=== PATIENT | female | born 1985 | race Hispanic/Latino ===

== ENCOUNTER 2018-03-17 16:08 | Emergency (ER) | payer BC, OTHER ==
[2018-03-17 16:26] VITALS: BP 142/82; PULSE 76; RESP 18; TEMP 98.2; O2SAT 98
--- NOTE | 2018-03-17 16:45 | ED PDOC ---
Upper Extremity Pain/Injury Time Seen by Provider: 03/17/18 16:23 Chief Complaint (Nursing): Finger,Hand,&Wrist Chief Complaint (Provider): Right hand pain History Per: Patient History/Exam Limitations: no limitations Onset/Duration Of Symptoms: Days (x1) Current Symptoms Are (Timing): Still Present Quality: "Pain" Additional Complaint(s): Kiki Sims is a 32 year old female, with no significant past medical history, who presents to the emergency department complaining of right hand pain s/p fall onset last night. Patient reports she fell with her arms extended. She did not take any pain medication. She denies any numbness, weakness or other injuries. No further medical complaints. PMD: None provided. Past Medical History Reviewed: Historical Data, Nursing Documentation, Vital Signs Vital Signs: Last Vital Signs Temp 98.2 F 03/17/18 16:23 Pulse 76 03/17/18 16:23 Resp 18 03/17/18 16:23 BP 142/82 03/17/18 16:23 Pulse Ox 98 03/17/18 16:23 - Medical History PMH: No Chronic Diseases - Surgical History Surgical History: No Surg Hx - Family History Family History: States: No Known Family Hx - Social History Current smoker - smoking cessation education provided: No Alcohol: None Drugs: Denies - Allergies Allergies/Adverse Reactions: Allergies Allergy/AdvReac Type Severity Reaction Status Date / Time codeine Allergy VOMITING Verified 03/17/18 16:23 latex Allergy RASH Verified 03/17/18 16:23 Review of Systems ROS Statement: Except As Marked, All Systems Reviewed And Found Negative Musculoskeletal: Positive for: Hand Pain (right) Neurological: Negative for: Weakness, Numbness Physical Exam - Reviewed Nursing Documentation Reviewed: Yes Vital Signs Reviewed: Yes - Physical Exam Appears: Positive for: Well, Non-toxic, No Acute Distress Head Exam: Positive for: ATRAUMATIC, NORMAL INSPECTION, NORMOCEPHALIC Skin: Positive for: Normal Color, Warm, Dry Eye Exam: Positive for: Normal appearance Neck: Positive for: Painless ROM Respiratory: Negative for: Respiratory Distress Extremity: Positive for: Normal ROM (Right hand ), Tenderness (snuffbox tenderness on right hand.), Swelling (posterior medial hand). Negative for: Deformity Neurologic/Psych: Positive for: Alert, Oriented. Negative for: Motor/Sensory Deficits - ECG O2 Sat by Pulse Oximetry: 98 (RA) Pulse Ox Interpretation: Normal Medical Decision Making Medical Decision Making: Initial Impression: Hand injury Initial Plan: --Motrin tab 600 mg PO --Hand right 3 views [RAD] --Reevaluation ~ Scribe Attestation: Documented by Noel Pizano, acting as a scribe for Djaa Valadez PA-C. Provider Scribe Attestation: All medical record entries made by the Scribe were at my direction and personally dictated by me. I have reviewed the chart and agree that the record accurately reflects my personal performance of the history, physical exam, medical decision making, and the department course for this patient. I have also personally directed, reviewed, and agree with the discharge instructions and disposition. Disposition - Clinical Impression Clinical Impression: Hand injury - Disposition Referrals: Bianca Doan MD [Staff Provider] - Disposition: Routine/Home Disposition Time: 18:21 Condition: GOOD Instructions: Common Wrist Injuries Forms: [employer] ([place] Korean)
--- NOTE | 2018-03-18 07:05 | RAD ---
PROCEDURE: Right Hand Radiographs. HISTORY: right hand pain, FOOSH COMPARISON: None. FINDINGS: BONES: No acute fracture or destructive bony lesion identified. JOINTS: Normal. No osteoarthritic changes. SOFT TISSUES: Normal. OTHER FINDINGS: None. IMPRESSION: Unremarkable right hand radiographs.
== END 2018-03-17 18:21 | disposition home or self-care (01) ==
LOC: H.ER 16:08
DX: S69.91XA Unspecified injury of right wrist, hand and finger(s), initial encounter (principal); W19.XXXA Unspecified fall, initial encounter; Y92.89 Other specified places as the place of occurrence of the external cause

== ENCOUNTER 2018-05-16 10:13 | Emergency (ER) | payer BC, OTHER ==
[2018-05-16 10:19] VITALS: TEMP 97.7
[2018-05-16 11:13] LABS: BASO # 0.1 K/uL (0.0-0.2); BASO % 0.9 % (0.0-2.0); EOS # 0.1 K/uL (0.0-0.7); EOS % 0.8 % (0.0-4.0); HEMOGLOBIN 14.4 g/dL (12.0-16.0); LYMPH # 2.1 K/uL (1.0-4.3); MEAN CELL VOLUME 89.7 fl (81.0-99.0); MEAN CORPUSCULAR HEMOGLOBIN 30.3 pg (27.0-31.0); MEAN CORPUSCULAR HGB CONC 33.8 g/dL (33.0-37.0); MEAN PLATELET VOLUME 9.1 fl (7.2-11.7); MONO # 0.7 K/uL (0.0-0.8); MONO % 6.8 % (0.0-10.0); NEUT % 70.5 % (50.0-75.0); NRBC % 0.1 % (0.0-0.0); RBC 4.77 Mil/uL (3.80-5.20); RED CELL DISTRIBUTION WIDTH 13.5 % (11.5-14.5); WHITE BLOOD COUNT 9.9 K/uL (4.8-10.8)
[2018-05-16 11:24] LABS: SQUAMOUS EPITHIAL 3 /hpf (0-5); URINE BILIRUBIN NEGATIVE (NEGATIVE); URINE BLOOD NEGATIVE (NEGATIVE); URINE CLARITY CLOUDY (Clear); URINE COLOR YELLOW (YELLOW); URINE GLUCOSE (UA) NEG (Normal); URINE LEUKOCYTE ESTERASE TRACE Leu/uL (Negative); URINE PROTEIN NEGATIVE (NEGATIVE); URINE UROBILINOGEN 0.2-1.0 mg/dL (0.2-1.0)
[2018-05-16 11:28] LABS: ALB/GLOB RATIO 1.1 (1.0-2.1); ALBUMIN 3.6 g/dL (3.5-5.0); ALT/SGPT 34 U/L (9-52); AST/SGOT 20 U/L (14-36); BLOOD UREA NITROGEN 9 mg/dl (7-17); CALCIUM 8.6 mg/dL (8.4-10.2); GFR AFRICAN-AMERICAN > 60; GFR NON-AFRICAN AMERICAN > 60
--- NOTE | 2018-05-16 11:31 | ED PDOC ---
HPI: Female Pain Time Seen by Provider: 05/16/18 10:30 Chief Complaint (Nursing): Female Genitourinary Chief Complaint (Provider): Vaginal spotting History Per: Patient History/Exam Limitations: no limitations Onset/Duration Of Symptoms: Days (x1) Current Symptoms Are (Timing): Still Present Additional Complaint(s): 32 year old female presents to the emergency department complaining of vaginal spotting onset one day. Patient has no abdominal pain, but was worried and came in for evaluation. LNMP: 03/25/18 PMD: Dr. Garcia Past Medical History Reviewed: Historical Data, Nursing Documentation, Vital Signs Vital Signs: Last Vital Signs Temp 97.7 F 05/16/18 10:18 Pulse 71 05/16/18 10:18 Resp 21 05/16/18 10:18 BP 136/77 05/16/18 10:18 Pulse Ox 98 05/16/18 10:18 - Medical History PMH: No Chronic Diseases - Surgical History Other surgeries: dilation and curettage - Family History Family History: States: Unknown Family Hx - Home Medications Home Medications: Ambulatory Orders Medication Instructions Recorded Vit Calc,Iron,Folic 1 each PO DAILY #30 tablet 05/16/18 [ Vitamins] - Allergies Allergies/Adverse Reactions: Allergies Allergy/AdvReac Type Severity Reaction Status Date / Time codeine Allergy VOMITING Verified 03/17/18 16:23 latex Allergy RASH Verified 03/17/18 16:23 Review of Systems ROS Statement: Except As Marked, All Systems Reviewed And Found Negative Gastrointestinal: Negative for: Abdominal Pain Genitourinary Female: Positive for: Vaginal Bleeding (spotting) Physical Exam - Reviewed Nursing Documentation Reviewed: Yes Vital Signs Reviewed: Yes - Physical Exam Appears: Positive for: No Acute Distress (but morbidly obese) Head Exam: Positive for: ATRAUMATIC, NORMOCEPHALIC Skin: Positive for: Normal Color, Warm, Dry Eye Exam: Positive for: Normal appearance Cardiovascular/Chest: Positive for: Regular Rate, Rhythm. Negative for: Murmur Respiratory: Positive for: Normal Breath Sounds. Negative for: Accessory Muscle Use, Respiratory Distress Gastrointestinal/Abdominal: Positive for: Normal Exam, Soft. Negative for: Tenderness Back: Positive for: Normal Inspection Neurologic/Psych: Positive for: Alert, Oriented (x3). Negative for: Motor/ Sensory Deficits - Laboratory Results Result Diagrams: 05/16/18 11:04 05/16/18 11:04 - ECG O2 Sat by Pulse Oximetry: 98 (RA) Pulse Ox Interpretation: Normal Medical Decision Making Medical Decision Making: Initial Impression: threatened Time: 10:47 Initial Plan: --ABO/RH Type --Type and screen --Beta-HCG --CMP --Urine --Urine dipstick --CBC with differential --Urinalysis --OB Preg 1st Tri & OB Transvag US Pt states she has appt with Ob in [place], [place] on Friday (05/18/18). Copy of labs and ultrasound given to patient. Scribe Attestation: Documented by Marla Newell, acting as a scribe for Magdalena Amador MD. Provider Scribe Attestation: All medical entries made by the Scribe were at my direction and personally dictated by me. I have reviewed the chart and agree that the record accurately reflects my personal performance of the history, physical exam, medical decision making, and the department course for this patient. I have also personally directed, reviewed, and agree with the discharge instructions and disposition. Disposition - Clinical Impression Clinical Impression: Threatened - Disposition Disposition Time: 13:56 Condition: STABLE Additional Instructions: FOLLOW-UP WITH OB IN 2 DAYS WITHOUT FAIL. Prescriptions: Vit Calc,Iron,Folic [ Vitamins] 1 each PO DAILY #30 tablet Instructions: Threatened Miscarriage Forms: [employer] (Indonesian)
--- NOTE | 2018-05-16 13:24 | US ---
PROCEDURE: OB Pelvic Ultrasound HISTORY: Vag spotting LMP: 03/25/2018 COMPARISON: None available. FINDINGS: UTERUS: Uterus measures 10.5 x 8.2 x 4.5 cm. Bicornuate type configuration. Small cystic structure within the left uterine horn measuring approximately 0.7 cm which may represent a gestational sac. No yolk sac or pole is identified. CERVIX: Measures 3.2 cm. Long and closed. No cervical abnormality seen. RIGHT OVARY: Measures 2.9 x 3.2 x 1.9 cm. No mass lesion. Normal flow. LEFT OVARY: Measures 2.4 x 2.8 x 1.5 cm. No solid mass. Normal flow. FREE FLUID: None. OTHER FINDINGS: None. IMPRESSION: Bicornuate type uterine configuration. Small cystic structure within the left uterine horn which may represent a small gestational sac. This measures approximately 0.7 cm, which is out of range. No yolk sac or pole is identified. Findings may represent early normal/ abnormal with ectopic not excluded. Close clinical follow-up with serial pelvic sonography and serum beta HCG levels is recommended.
[2018-05-16 14:03] VITALS: BP 125/80; PULSE 75; RESP 16
[2018-05-18 15:50] VITALS: O2SAT 98
== END 2018-05-16 14:03 | disposition home or self-care (01) ==
LOC: H.ER 10:13
DX: O20.0 Threatened abortion (principal)

== ENCOUNTER 2018-07-28 15:40 | Inpatient (IN) | payer BC ==
[2018-07-28] MEDS ORDERED: Sodium Chloride 0.9% 1,000 ML IV STA ×2 (16:14→16:19)
[2018-07-28] MEDS ORDERED: Clindamycin 600mg/50ml D5W 600 MG/50 ML VIAL IVPB STA (16:20)
[2018-07-28 16:46] LABS: BASO % 0.1 % (0.0-2.0); HEMOGLOBIN 13.5 g/dL (12.0-16.0); LYMPH # 1.2 K/uL (1.0-4.3); MEAN CELL VOLUME 89.2 fl (81.0-99.0); MEAN CORPUSCULAR HEMOGLOBIN 29.7 pg (27.0-31.0); MEAN CORPUSCULAR HGB CONC 33.3 g/dL (33.0-37.0); MEAN PLATELET VOLUME 9.8 fl (7.2-11.7); MONO # 1.3 K/uL (0.0-0.8); MONO % 5.4 % (0.0-10.0); NEUT # 20.9 K/uL (1.8-7.0); NEUT % 89.5 % (50.0-75.0); NRBC % 0.1 % (0.0-0.0); PLATELET COUNT 225 K/uL (130-400); RBC 4.56 Mil/uL (3.80-5.20); RED CELL DISTRIBUTION WIDTH 13.7 % (11.5-14.5); WHITE BLOOD COUNT 23.4 K/uL (4.8-10.8)
--- NOTE | 2018-07-28 16:50 | ED PDOC ---
HPI: Abdomen Time Seen by Provider: 07/28/18 16:07 Chief Complaint (Nursing): GI Problem Chief Complaint (Provider): GI Problem History Per: Patient History/Exam Limitations: no limitations Onset/Duration Of Symptoms: Days (3) Associated Symptoms: Fever, Nausea, Vomiting, Diarrhea Additional Complaint(s): 33 years old female who is 16 weeks presents to the ED for evaluation of worsening nausea, vomiting, diarrhea and swelling to left buttock onset 3 days. Patient reports all symptoms started at the same time. Pt has been following up with clerical support specialist in [place] for maternal monitoring. She states she has been febrile but has not measured her temperature. Patient denies history of abscess, cellulitis or MRSA. LNMP: 03/25/18 PMD: [facility] [employer]: Abel Past Medical History Reviewed: Historical Data, Nursing Documentation, Vital Signs Vital Signs: Last Vital Signs Temp 97.3 F L 08/01/18 08:00 Pulse 104 H 08/01/18 08:00 Resp 20 08/01/18 08:00 BP 96/58 L 08/01/18 08:00 Pulse Ox 96 08/01/18 08:00 - Medical History PMH: No Chronic Diseases - Surgical History Surgical History: No Surg Hx - Family History Family History: States: Unknown Family Hx - Social History Current smoker - smoking cessation education provided: No Alcohol: None Drugs: Denies - Home Medications Home Medications: Ambulatory Orders Medication Instructions Recorded Vit Calc,Iron,Folic 1 each PO DAILY #30 tablet 05/16/18 [ Vitamins] - Allergies Allergies/Adverse Reactions: Allergies Allergy/AdvReac Type Severity Reaction Status Date / Time codeine Allergy VOMITING Verified 03/17/18 16:23 latex Allergy RASH Verified 03/17/18 16:23 Review of Systems ROS Statement: Except As Marked, All Systems Reviewed And Found Negative Constitutional: Positive for: Fever (subjective) Gastrointestinal: Positive for: Nausea, Vomiting, Diarrhea Physical Exam - Reviewed Nursing Documentation Reviewed: Yes Vital Signs Reviewed: Yes - Physical Exam Appears: Positive for: Non-toxic, No Acute Distress Skin: Positive for: Normal Color, Warm, Dry Cardiovascular/Chest: Positive for: Regular Rate, Rhythm. Negative for: Murmur Respiratory: Positive for: Normal Breath Sounds. Negative for: Respiratory Distress Gastrointestinal/Abdominal: Positive for: Normal Exam, Soft, Other (Gravid). Negative for: Tenderness Back: Positive for: Other (Large 10cm x 5cm hard area of cellulitis to left medial buttock. No fluctuant or drainage.). Negative for: L CVA Tenderness, R CVA Tenderness Neurologic/Psych: Positive for: Alert, Oriented (x3) - Laboratory Results Result Diagrams: 08/01/18 05:05 08/01/18 05:05 - ECG O2 Sat by Pulse Oximetry: 100 (RA) Pulse Ox Interpretation: Normal Medical Decision Making Medical Decision Making: Time: 1613 --large area of cellulitis to left medial buttock --abscess to drain --patient is possibly septic --most likely admission for requiring antibiotics Initial Plan: --BBK Type and Screen --Venous Blood Gas --EKG --Beta-HCG --CMP --Lipase --CBC --PTT --PT --Cleocin 600 mg in 50 ml IVPB --NaCl 1,000 ml IV --Tylenol 650 mg PO --Zofran 4 mg IVP --Urinalysis Pt found to have WBC of 24 and tachycardic with source of infection. Pt given zofran, tylenol, IV fluids and started on clindamycin. Pt admitted to the medicine service under Dr. Xie and doctor Rojas aware of pt status. Spoke with Dr. Grace with gynecology who recommended obstetric ultrasound to confirm gestational age and stated he will speak with Dr. Xie to determine if consult is necessary. Pt aware that she is going to be admitted. 2014 Patient reports persistent pain, offered Morphine but she states that "doesn't work" for her and is requesting Dilaudid. Patient informed Dilaudid not given in this hospital and is agreeable to Morphine -- Morphine 6mg IV ordered. 2104 US OB FINDINGS: Limitations: Body habitus. Fetus: Single live intrauterine gestation. Heart rate: heart rate of 186 beats per minute. Presentation: Transverse. Placenta: Posterior. No abruption. Tip approximately 2.0 cm from cervical os. Amniotic fluid: Normal. Anatomy: No gross anomaly is appreciated. BIOMETRICS Gestational age: Estimated gestational age of 15 weeks 5 days by measurements. ELVIA: 01/14/2019 by ultrasound. EFW: 128 g. MATERNAL: Uterus: Unremarkable. No myometrial mass. Cervix: No cervical dilatation or effacement. Adnexa: Ovaries not visualized. No adnexal masses. Free fluid: No significant free fluid. IMPRESSION: 1. Single live intrauterine gestation Scribe Attestation: Documented by Orquidea Mckeon, acting as a scribe for Sheri Jones MD. Provider Scribe Attestation: All medical record entries made by the Scribe were at my direction and personally dictated by me. I have reviewed the chart and agree that the record accurately reflects my personal performance of the history, physical exam, medical decision making, and the department course for this patient. I have also personally directed, reviewed, and agree with the discharge instructions and disposition. Disposition - Clinical Impression Clinical Impression: Cellulitis and abscess of buttock - Patient ED Disposition Is Patient to be Admitted: Yes - Disposition Disposition Time: 17:30 Condition: FAIR
[2018-07-28 17:04] LABS: VENOUS BLOOD GAS BASE EXCESS -2.9 mmol/L (0.0-2.0); VENOUS BLOOD GAS PCO2 38 mmHg (40-60); VENOUS BLOOD GAS PO2 26 mm/Hg (30-55); VENOUS BLOOD PH 7.37 (7.32-7.43)
[2018-07-28 17:09] LABS: ALB/GLOB RATIO 1.1 (1.0-2.1); ALBUMIN 3.7 g/dL (3.5-5.0); ALT/SGPT 40 U/L (9-52); AST/SGOT 33 U/L (14-36); BLOOD UREA NITROGEN 7 mg/dl (7-17); GFR NON-AFRICAN AMERICAN > 60; LIPASE 20 U/L (23-300)
[2018-07-28 17:24] LABS: INR 1.1; PROTHROMBIN TIME 12.7 Seconds (9.8-13.1)
[2018-07-28 17:26] LABS: EOSINOPHIL 1 % (0-7); LYMPHOCYTE 4 % (20-50); MONOCYTE 5 % (0-10); NEUTROPHIL 90 % (42-75); PLATELET ESTIMATE NORMAL (NORMAL); TOTAL CELLS COUNTED 100
[2018-07-28 17:27] LABS: PARTIAL THROMBOPLASTIN TIME 28.9 Seconds (25.6-37.1)
[2018-07-28] MEDS ORDERED: Morphine 4 MG/ML VIAL ONE (20:02)
[2018-07-29] MEDS ORDERED: Clindamycin 600mg/50ml D5W 300 MG/25 ML VIAL IVPB SCH (01:00)
[2018-07-29] MEDS: Clindamycin 600mg/50ml D5W 600 MG/50 ML VIAL IVPB SCH ×2 (01:41→09:12)
[2018-07-29] MEDS: Dextrose 5%/Lactated Ringer's 1,000 ML IV SCH ×2 (05:18→20:50)
[2018-07-29 06:27] LABS: BASO # 0.3 K/uL (0.0-0.2); BASO % 1.1 % (0.0-2.0); HEMOGLOBIN 12.8 g/dL (12.0-16.0); LYMPH % 3.9 % (20.0-40.0); MEAN CELL VOLUME 90.1 fl (81.0-99.0); MEAN CORPUSCULAR HEMOGLOBIN 30.2 pg (27.0-31.0); MEAN CORPUSCULAR HGB CONC 33.6 g/dL (33.0-37.0); MEAN PLATELET VOLUME 9.9 fl (7.2-11.7); MONO # 1.8 K/uL (0.0-0.8); MONO % 6.8 % (0.0-10.0); NEUT % 88.2 % (50.0-75.0); RBC 4.25 Mil/uL (3.80-5.20); RED CELL DISTRIBUTION WIDTH 13.5 % (11.5-14.5); WHITE BLOOD COUNT 26.1 K/uL (4.8-10.8)
[2018-07-29 07:07] LABS: ALB/GLOB RATIO 1.1 (1.0-2.1); ALBUMIN 3.4 g/dL (3.5-5.0); ALT/SGPT 43 U/L (9-52); AST/SGOT 26 U/L (14-36); BLOOD UREA NITROGEN 5 mg/dl (7-17); CALCIUM 8.9 mg/dL (8.4-10.2); GFR NON-AFRICAN AMERICAN > 60
[2018-07-29 07:28] LABS: SQUAMOUS EPITHIAL 5 /hpf (0-5); URINE BACTERIA RARE (<OCC); URINE BILIRUBIN NEGATIVE (NEGATIVE); URINE BLOOD NEGATIVE (NEGATIVE); URINE CLARITY CLOUDY (Clear); URINE COLOR AMBER (YELLOW); URINE GLUCOSE (UA) >=500 mg/dL (Normal); URINE LEUKOCYTE ESTERASE NEG Leu/uL (Negative); URINE PROTEIN 30 mg/dL (NEGATIVE)
--- NOTE | 2018-07-29 10:15 | CARD ---
APPROVED REPORT Date of service: 07/28/2018 <Conclusion> Sinus tachycardia Abnormal QRS-T angle, consider primary T wave abnormality Abnormal ECG
--- NOTE | 2018-07-29 10:26 | US ---
Date of service: 07/28/2018 PROCEDURE: OB Pelvic Ultrasound HISTORY: pt admitted for sepsis. confirm dating, please LMP: 03/25/2018 COMPARISON: 05/16/2018 FINDINGS: UTERUS: Gestational sac: Single intrauterine gestation. Heart rate: 186 bpm. age (Ultrasound estimated): 15 weeks 5 days 1 week 1 day Jeannette-gestational hemorrhage: None. Date of delivery (Ultrasound estimated) : 01/14/2019 On available images of the uterus, no uterine masses appreciated. CERVIX: Measures 5.3 cm. Long and closed. No cervical abnormality seen. RIGHT OVARY: Not visualized LEFT OVARY: Not visualized. FREE FLUID: None. OTHER FINDINGS: Posterior placenta greater than 2 cm from the cervix. presentation transverse. IMPRESSION: Single intrauterine gestation with normal cardiac activity whose menstrual age by ultrasound parameters is 15 weeks 5 days. Estimated date of delivery is 01/14/2019 by ultrasound. Estimated weight is 28 g. Posterior placenta. No previa. Transverse presentation. Cervical length 5.3 cm. Internal cervical os closed. No cervical abnormality appreciated. Comment please note that the prior Ob ultrasound study from 05/16/2018 made reference to a possible bicornuate type uterine configuration. This is difficult to perceive on this exam . Correlation any prior anatomical studies in this regard recommended. Concordant results (preliminary interpretation) provided by [employer].
[2018-07-29] MEDS ORDERED: Cefepime 1 GM in Sodium Chloride 0.9% 100 ML IVPB SCH (12:45)
--- NOTE | 2018-07-29 16:51 | CP.PCM.HP ---
<GriderRojelioo - Last Filed: 07/29/18 16:49> History of Present Illness - History of Present Illness History of Present Illness: 33 y/o F with No PMHx, at 16 weeks of gestational age, was admitted due to Left gluteus cellulitis. Pt was evaluated and examined by bedside with Dr Xie. pt reports noticing L gluteal rash 5 days ago. Pt reported feeling feverish since 2 days ago. Pt denies Hx of diabetes or high blood pressure. Pt reports 1 previous that was medically terminated when she was 18 years old. LNMP: 03/25/18 PMD: Jose [employer] PHONE DEVELOPER: Abel Present on Admission - Present on Admission Any Indicators Present on Admission: No Review of Systems - Constitutional Constitutional: absent: Chills, Fatigue, Fever - EENT Eyes: absent: Blurred Vision, Change in Vision Nose/Mouth/Throat: absent: Neck Pain, Neck Mass - Respiratory Respiratory: absent: Cough, Dyspnea, Hemoptysis, Stridor, Pain on Inspiration - Gastrointestinal Gastrointestinal: absent: Abdominal Pain, Hematemesis, Hematochezia - Genitourinary Genitourinary: absent: Change in Urinary Stream, Dysuria - Reproductive: Female Reproductive:Female: absent: Dyspareunia, Vaginal Odor, Vaginal Pruritis Past Patient History - Past Medical History & Family History Past Medical History?: Yes - Past Social History Smoking Status: Former Smoker - ENDOCRINE/METABOLIC Hx Endocrine Disorders: Yes (gallbladder disease) - MUSCULOSKELETAL/RHEUMATOLOGICAL Hx Falls: No - PSYCHIATRIC Hx Substance Use: No - SURGICAL HISTORY Hx Cholecystectomy: Yes (Jan 2016) Other/Comment: DNC - ANESTHESIA Hx Anesthesia: Yes Hx Anesthesia Reactions: No Meds Allergies/Adverse Reactions: Allergies Allergy/AdvReac Type Severity Reaction Status Date / Time codeine Allergy VOMITING Verified 03/17/18 16:23 latex Allergy RASH Verified 03/17/18 16:23 Physical Exam - Constitutional Appears: Well, No Acute Distress - Head Exam Head Exam: NORMAL INSPECTION - Eye Exam Eye Exam: EOMI, Normal appearance - ENT Exam ENT Exam: Mucous Membranes Dry - Neck Exam Neck exam: Positive for: Full Rom. Negative for: Lymphadenopathy, Meningismus - Respiratory Exam Respiratory Exam: Clear to Auscultation Bilateral, NORMAL BREATHING PATTERN - Cardiovascular Exam Cardiovascular Exam: REGULAR RHYTHM, +S1, +S2 - GI/Abdominal Exam GI & Abdominal Exam: Normal Bowel Sounds, Soft. absent: Distended, Firm, Guarding, Tenderness - Extremities Exam Extremities exam: Positive for: full ROM. Negative for: calf tenderness - Neurological Exam Neurological exam: Alert, Oriented x3 - Skin Additional comments: Left gluteal area: Presence of tenderness and an area of >10cm diameter area of significant erythema and swelling. Results - Vital Signs Recent Vital Signs: Last Vital Signs Temp 98.7 F 07/29/18 16:15 Pulse 108 H 07/29/18 16:15 Resp 20 07/29/18 16:15 BP 118/68 07/29/18 16:15 Pulse Ox 100 07/29/18 16:15 - Labs Result Diagrams: 07/29/18 05:30 07/29/18 05:30 Labs: Laboratory Results - last 24 hr 07/28/18 07/28/18 07/28/18 16:15 16:15 16:15 WBC 23.4 H D RBC 4.56 Hgb 13.5 Hct 40.6 MCV 89.2 MCH 29.7 MCHC 33.3 RDW 13.7 Plt Count 225 MPV 9.8 Neut % (Auto) 89.5 H Lymph % (Auto) 5.0 L [place] % (Auto) 5.4 Eos % (Auto) 0.0 Baso % (Auto) 0.1 Neut # (Auto) 20.9 H Lymph # (Auto) 1.2 [place] # (Auto) 1.3 H Eos # (Auto) 0.0 Baso # (Auto) 0.0 Neutrophils % (Manual) 90 H Lymphocytes % (Manual) 4 L Monocytes % (Manual) 5 Eosinophils % (Manual) 1 Platelet Estimate Normal ESR PT 12.7 INR 1.1 APTT 28.9 pO2 VBG pH VBG pCO2 VBG HCO3 VBG Total CO2 VBG O2 Sat (Calc) VBG Base Excess VBG Potassium Glucose Lactate FiO2 Sodium 133 Potassium 4.3 Chloride 102 Carbon Dioxide 20 L Anion Gap 15 BUN 7 Creatinine 0.7 Est GFR ( Amer) > 60 Est GFR (Non-Af Amer) > 60 Random Glucose 197 H Hemoglobin A1c Calcium 9.0 Total Bilirubin 1.1 AST 33 ALT 40 Alkaline Phosphatase 80 Total Protein 7.0 Albumin 3.7 Globulin 3.3 Albumin/Globulin Ratio 1.1 Lipase 20 L TSH 3rd Generation Beta HCG, Quant 60074.00 Venous Blood Potassium Urine Color Urine Clarity Urine pH Ur Specific [place] Urine Protein Urine Glucose (UA) Urine Ketones Urine Blood Urine Nitrate Urine Bilirubin Urine Urobilinogen Ur Leukocyte Esterase Urine RBC (Auto) Urine Microscopic WBC Ur Squamous Epith Cells Urine Bacteria Blood Type Antibody Screen BBK History Checked 07/28/18 07/28/18 07/29/18 16:15 16:19 05:30 WBC 26.1 H RBC 4.25 Hgb 12.8 Hct 38.3 MCV 90.1 MCH 30.2 MCHC 33.6 RDW 13.5 Plt Count 183 MPV 9.9 Neut % (Auto) 88.2 H Lymph % (Auto) 3.9 L [place] % (Auto) 6.8 Eos % (Auto) 0.0 Baso % (Auto) 1.1 Neut # (Auto) 23.0 H Lymph # (Auto) 1.0 [place] # (Auto) 1.8 H Eos # (Auto) 0.0 Baso # (Auto) 0.3 H Neutrophils % (Manual) Lymphocytes % (Manual) Monocytes % (Manual) Eosinophils % (Manual) Platelet Estimate ESR PT INR APTT pO2 26 L VBG pH 7.37 VBG pCO2 38 L VBG HCO3 21.3 VBG Total CO2 23.2 VBG O2 Sat (Calc) 55.1 VBG Base Excess -2.9 L VBG Potassium 3.7 Glucose 211 H Lactate 1.5 FiO2 21.0 Sodium 129.0 L Potassium Chloride 98.0 Carbon Dioxide Anion Gap BUN Creatinine Est GFR ( Amer) Est GFR (Non-Af Amer) Random Glucose Hemoglobin A1c Calcium Total Bilirubin AST ALT Alkaline Phosphatase Total Protein Albumin Globulin Albumin/Globulin Ratio Lipase TSH 3rd Generation Beta HCG, Quant Venous Blood Potassium 3.7 Urine Color Urine Clarity Urine pH Ur Specific [place] Urine Protein Urine Glucose (UA) Urine Ketones Urine Blood Urine Nitrate Urine Bilirubin Urine Urobilinogen Ur Leukocyte Esterase Urine RBC (Auto) Urine Microscopic WBC Ur Squamous Epith Cells Urine Bacteria Blood Type A POSITIVE Antibody Screen Negative BBK History Checked Patient has bt 07/29/18 07/29/18 07/29/18 05:30 05:30 05:30 WBC RBC Hgb Hct MCV MCH MCHC RDW Plt Count MPV Neut % (Auto) Lymph % (Auto) [place] % (Auto) Eos % (Auto) Baso % (Auto) Neut # (Auto) Lymph # (Auto) [place] # (Auto) Eos # (Auto) Baso # (Auto) Neutrophils % (Manual) Lymphocytes % (Manual) Monocytes % (Manual) Eosinophils % (Manual) Platelet Estimate ESR 90 H PT INR APTT pO2 VBG pH VBG pCO2 VBG HCO3 VBG Total CO2 VBG O2 Sat (Calc) VBG Base Excess VBG Potassium Glucose Lactate FiO2 Sodium 135 Potassium 4.1 Chloride 102 Carbon Dioxide 22 Anion Gap 15 BUN 5 L Creatinine 0.6 L Est GFR ( Amer) > 60 Est GFR (Non-Af Amer) > 60 Random Glucose 206 H Hemoglobin A1c 7.3 H Calcium 8.9 Total Bilirubin 1.1 AST 26 ALT 43 Alkaline Phosphatase 72 Total Protein 6.4 Albumin 3.4 L Globulin 3.0 Albumin/Globulin Ratio 1.1 Lipase TSH 3rd Generation 0.67 Beta HCG, Quant Venous Blood Potassium Urine Color Urine Clarity Urine pH Ur Specific [place] Urine Protein Urine Glucose (UA) Urine Ketones Urine Blood Urine Nitrate Urine Bilirubin Urine Urobilinogen Ur Leukocyte Esterase Urine RBC (Auto) Urine Microscopic WBC Ur Squamous Epith Cells Urine Bacteria Blood Type Antibody Screen BBK History Checked 07/29/18 06:45 WBC RBC Hgb Hct MCV MCH MCHC RDW Plt Count MPV Neut % (Auto) Lymph % (Auto) [place] % (Auto) Eos % (Auto) Baso % (Auto) Neut # (Auto) Lymph # (Auto) [place] # (Auto) Eos # (Auto) Baso # (Auto) Neutrophils % (Manual) Lymphocytes % (Manual) Monocytes % (Manual) Eosinophils % (Manual) Platelet Estimate ESR PT INR APTT pO2 VBG pH VBG pCO2 VBG HCO3 VBG Total CO2 VBG O2 Sat (Calc) VBG Base Excess VBG Potassium Glucose Lactate FiO2 Sodium Potassium Chloride Carbon Dioxide Anion Gap BUN Creatinine Est GFR ( Amer) Est GFR (Non-Af Amer) Random Glucose Hemoglobin A1c Calcium Total Bilirubin AST ALT Alkaline Phosphatase Total Protein Albumin Globulin Albumin/Globulin Ratio Lipase TSH 3rd Generation Beta HCG, Quant Venous Blood Potassium Urine Color [place] Urine Clarity Cloudy Urine pH 5.0 Ur Specific [place] 1.026 Urine Protein 30 Urine Glucose (UA) >=500 Urine Ketones 80 Urine Blood Negative Urine Nitrate Negative Urine Bilirubin Negative Urine Urobilinogen 4.0 H Ur Leukocyte Esterase Neg Urine RBC (Auto) 3 Urine Microscopic WBC 6 H Ur Squamous Epith Cells 5 Urine Bacteria Rare Blood Type Antibody Screen BBK History Checked Assessment & Plan - Assessment and Plan (Free Text) Assessment: 33 y/o female at 16 weeks GA, is admitted for L gluteus cellulitis. --Acetaminophen scheduled for fever. --Clindamycin as empiric treatment --OBGYN consult for well-being evaluation. --Gen Surgery consult for possibility of abscess and need of I&D. --Management as ordered. - Date & Time Date: 07/29/18 Time: 14:00 <Sterling Xie - Last Filed: 08/03/18 18:19> Results - Vital Signs Recent Vital Signs: Last Vital Signs Temp 97.9 F 08/03/18 16:19 Pulse 88 08/03/18 16:19 Resp 20 08/03/18 16:19 BP 119/74 08/03/18 16:19 Pulse Ox 97 08/03/18 16:19 - Labs Result Diagrams: 08/03/18 07:30 08/03/18 07:30 Labs: Laboratory Results - last 24 hr 08/02/18 08/03/18 08/03/18 22:08 05:54 07:30 WBC 14.7 H RBC 3.60 L Hgb 10.7 L Hct 31.7 L MCV 88.0 MCH 29.8 MCHC 33.9 RDW 13.8 Plt Count 251 MPV 8.6 Neut % (Auto) 83.3 H Lymph % (Auto) 9.5 L [place] % (Auto) 6.6 Eos % (Auto) 0.3 Baso % (Auto) 0.3 Neut # (Auto) 12.2 H Lymph # (Auto) 1.4 [place] # (Auto) 1.0 H Eos # (Auto) 0.0 Baso # (Auto) 0.0 Neutrophils % (Manual) 83 H Band Neutrophils % 4 H Lymphocytes % (Manual) 7 L Monocytes % (Manual) 2 Metamyelocytes % 1 H Myelocytes % 2 H Promyelocytes % 1 H Toxic Granulation Present Platelet Estimate Normal Plt Clumps, EDTA Present Hypochromasia (manual) Slight Sodium Potassium Chloride Carbon Dioxide Anion Gap BUN Creatinine Est GFR ( Amer) Est GFR (Non-Af Amer) POC Glucose (mg/dL) 216 H 168 H Random Glucose Calcium 08/03/18 08/03/18 07:30 11:46 WBC RBC Hgb Hct MCV MCH MCHC RDW Plt Count MPV Neut % (Auto) Lymph % (Auto) [place] % (Auto) Eos % (Auto) Baso % (Auto) Neut # (Auto) Lymph # (Auto) [place] # (Auto) Eos # (Auto) Baso # (Auto) Neutrophils % (Manual) Band Neutrophils % Lymphocytes % (Manual) Monocytes % (Manual) Metamyelocytes % Myelocytes % Promyelocytes % Toxic Granulation Platelet Estimate Plt Clumps, EDTA Hypochromasia (manual) Sodium 135 Potassium 3.4 L Chloride 101 Carbon Dioxide 27 Anion Gap 10 BUN 18 H Creatinine 1.0 Est GFR ( Amer) > 60 Est GFR (Non-Af Amer) > 60 POC Glucose (mg/dL) 210 H Random Glucose 159 H Calcium 8.4 Assessment & Plan - Assessment and Plan (Free Text) Plan: I was present during evaluation and discussed with Dr Grider re plans of care and mgt. Sterling Xie M.D.
--- NOTE | 2018-07-29 19:46 | CP.PCM.PN ---
Subjective - Date & Time of Evaluation Date of Evaluation: 07/29/18 Time of Evaluation: 19:44 - Subjective Subjective: I D NOTE PATIENT EXAMINED ,CHART REVIEWSD FULL CONSULT DICTATED RX : CLINDAMYCIN/ROCEPHEN Objective - Vital Signs/Intake and Output Vital Signs (last 24 hours): Temp Pulse Resp BP Pulse Ox 98.7 F 108 H 20 118/68 100 07/29/18 16:15 07/29/18 16:15 07/29/18 16:15 07/29/18 16:15 07/29/18 16:15 - Medications Medications: Current Medications Acetaminophen (Tylenol 325mg Tab) 650 mg PO Q6 PRN PRN Reason: Fever >100.4 F Acetaminophen (Tylenol 325mg Tab) 650 mg PO Q6 PRN PRN Reason: Pain, Mild (1-3) Acetaminophen (Tylenol 325mg Tab) 650 mg PO Q4 [facility] Last Admin: 07/29/18 16:45 Dose: 650 mg Clindamycin Phosphate (Cleocin) 600 mg in 50 mls @ 50 mls/hr IVPB Q8 LAQUITA PRN Reason: Protocol Last Admin: 07/29/18 09:12 Dose: 50 mls/hr Dextrose/Lactated Ringer's (Dextrose 5%/Lactated Ringer's) 1,000 mls @ 100 mls/ hr IV .Q10H [facility] Stop: 07/30/18 05:13 Last Admin: 07/29/18 05:18 Dose: 100 mls/hr Ceftriaxone Sodium 2 gm/ (Sodium Chloride) 100 mls @ 100 mls/hr IVPB DAILY LAQUITA PRN Reason: Protocol Morphine Sulfate (Morphine) 4 mg IVP Q4 PRN PRN Reason: Pain, moderate (4-7) - Labs Labs: 07/29/18 05:30 07/29/18 05:30 PT 12.7 Seconds (9.8-13.1) 07/28/18 16:15 INR 1.1 07/28/18 16:15 APTT 28.9 Seconds (25.6-37.1) 07/28/18 16:15
--- NOTE | 2018-07-29 20:12 | CP.PCM.CON ---
History of Present Illness - History of Present Illness History of Present Illness: General Surgery Consult Re: L gluteal cellulitis/abscess HPI: 33F, 16 weeks of , presented to ED with left gluteal cellulitis. L gluteal rash began 5 days ago and has become exquisitely painful. Pt reported feeling fevers starting 2 days ago. Now with nausea and non-bloody emesis and non-bloody diarrhea as well as fevers to 102.9. No other complaints. She has never had this issue before. PMH: Denies PSH: Lap cholecystectomy, DNC, medical termination of FH: noncontributory SH: No tobacco, EtOH, or drug use All: codeine, latex Meds: vitamins Review of Systems - Review of Systems All systems: reviewed and no additional remarkable complaints except (as per hpi ) Past Patient History - Past Medical History & Family History Past Medical History?: Yes - Past Social History Smoking Status: Former Smoker - ENDOCRINE/METABOLIC Hx Endocrine Disorders: Yes (gallbladder disease) - MUSCULOSKELETAL/RHEUMATOLOGICAL Hx Falls: No - PSYCHIATRIC Hx Substance Use: No - SURGICAL HISTORY Hx Cholecystectomy: Yes (Jan 2016) Other/Comment: DNC - ANESTHESIA Hx Anesthesia: Yes Hx Anesthesia Reactions: No Meds Allergies/Adverse Reactions: Allergies Allergy/AdvReac Type Severity Reaction Status Date / Time codeine Allergy VOMITING Verified 03/17/18 16:23 latex Allergy RASH Verified 03/17/18 16:23 - Medications Medications: Current Medications Acetaminophen (Tylenol 325mg Tab) 650 mg PO Q6 PRN PRN Reason: Fever >100.4 F Acetaminophen (Tylenol 325mg Tab) 650 mg PO Q6 PRN PRN Reason: Pain, Mild (1-3) Acetaminophen (Tylenol 325mg Tab) 650 mg PO Q4 [facility] Last Admin: 07/29/18 16:45 Dose: 650 mg Clindamycin Phosphate (Cleocin) 600 mg in 50 mls @ 50 mls/hr IVPB Q8 LAQUITA PRN Reason: Protocol Last Admin: 07/29/18 09:12 Dose: 50 mls/hr Dextrose/Lactated Ringer's (Dextrose 5%/Lactated Ringer's) 1,000 mls @ 100 mls/ hr IV .Q10H [facility] Stop: 07/30/18 05:13 Last Admin: 07/29/18 05:18 Dose: 100 mls/hr Ceftriaxone Sodium 2 gm/ (Sodium Chloride) 100 mls @ 100 mls/hr IVPB DAILY LAQUITA PRN Reason: Protocol Morphine Sulfate (Morphine) 4 mg IVP Q4 PRN PRN Reason: Pain, moderate (4-7) Physical Exam - Constitutional Appears: Non-toxic, No Acute Distress - Head Exam Head Exam: ATRAUMATIC, NORMOCEPHALIC - Eye Exam Eye Exam: EOMI. absent: Scleral icterus - ENT Exam ENT Exam: Mucous Membranes Moist Additional comments: trachea midline - Neck Exam Neck exam: Positive for: Full Rom. Negative for: Tenderness - Respiratory Exam Respiratory Exam: NORMAL BREATHING PATTERN. absent: Respiratory Distress - Cardiovascular Exam Cardiovascular Exam: Tachycardia, +S1, +S2 - GI/Abdominal Exam GI & Abdominal Exam: Soft. absent: Distended, Guarding, Rebound, Rigid, Tenderness - Rectal Exam Additional comments: Attempted Rectal exam but pts gluteus was to painful to move L gluteus with 15c area of erythema, exquisite TTP and induration. No fluctuance but some areas a bit edematous feeling. - Extremities Exam Extremities exam: Negative for: calf tenderness, pedal edema - Back Exam Back exam: absent: CVA tenderness (L), CVA tenderness (R) - Neurological Exam Neurological exam: Alert, Oriented x3 - Skin Skin Exam: Dry, Warm Results - Vital Signs Recent Vital Signs: Last Vital Signs Temp 98.7 F 07/29/18 16:15 Pulse 108 H 07/29/18 16:15 Resp 20 07/29/18 16:15 BP 118/68 07/29/18 16:15 Pulse Ox 100 07/29/18 16:15 - Labs Result Diagrams: 07/29/18 05:30 07/29/18 05:30 Labs: Laboratory Results - last 24 hr 07/29/18 07/29/18 07/29/18 05:30 05:30 05:30 WBC 26.1 H RBC 4.25 Hgb 12.8 Hct 38.3 MCV 90.1 MCH 30.2 MCHC 33.6 RDW 13.5 Plt Count 183 MPV 9.9 Neut % (Auto) 88.2 H Lymph % (Auto) 3.9 L [place] % (Auto) 6.8 Eos % (Auto) 0.0 Baso % (Auto) 1.1 Neut # (Auto) 23.0 H Lymph # (Auto) 1.0 [place] # (Auto) 1.8 H Eos # (Auto) 0.0 Baso # (Auto) 0.3 H ESR Sodium 135 Potassium 4.1 Chloride 102 Carbon Dioxide 22 Anion Gap 15 BUN 5 L Creatinine 0.6 L Est GFR ( Amer) > 60 Est GFR (Non-Af Amer) > 60 Random Glucose 206 H Hemoglobin A1c 7.3 H Calcium 8.9 Total Bilirubin 1.1 AST 26 ALT 43 Alkaline Phosphatase 72 Total Protein 6.4 Albumin 3.4 L Globulin 3.0 Albumin/Globulin Ratio 1.1 TSH 3rd Generation 0.67 Urine Color Urine Clarity Urine pH Ur Specific [place] Urine Protein Urine Glucose (UA) Urine Ketones Urine Blood Urine Nitrate Urine Bilirubin Urine Urobilinogen Ur Leukocyte Esterase Urine RBC (Auto) Urine Microscopic WBC Ur Squamous Epith Cells Urine Bacteria 07/29/18 07/29/18 05:30 06:45 WBC RBC Hgb Hct MCV MCH MCHC RDW Plt Count MPV Neut % (Auto) Lymph % (Auto) [place] % (Auto) Eos % (Auto) Baso % (Auto) Neut # (Auto) Lymph # (Auto) [place] # (Auto) Eos # (Auto) Baso # (Auto) ESR 90 H Sodium Potassium Chloride Carbon Dioxide Anion Gap BUN Creatinine Est GFR ( Amer) Est GFR (Non-Af Amer) Random Glucose Hemoglobin A1c Calcium Total Bilirubin AST ALT Alkaline Phosphatase Total Protein Albumin Globulin Albumin/Globulin Ratio TSH 3rd Generation Urine Color [place] Urine Clarity Cloudy Urine pH 5.0 Ur Specific [place] 1.026 Urine Protein 30 Urine Glucose (UA) >=500 Urine Ketones 80 Urine Blood Negative Urine Nitrate Negative Urine Bilirubin Negative Urine Urobilinogen 4.0 H Ur Leukocyte Esterase Neg Urine RBC (Auto) 3 Urine Microscopic WBC 6 H Ur Squamous Epith Cells 5 Urine Bacteria Rare Assessment & Plan - Assessment and Plan (Free Text) Assessment: 33F with L gluteal cellulitis, concern for abscess. Plan: US to look for fluid collections. Premedicate with morphine Continue Abx, appreciate ID input Morphine analgesia PRN Possible bedside I&D depending on results of US Close monitoring for worsening cellulitis. D/W Dr. Lele Eduardo PGY4
[2018-07-29] MEDS ORDERED: Epinephrine /Lidocaine HCL 1:100,000/2% 30 ml INJ ONE ×2 (21:45→23:30)
[2018-07-29] MEDS ORDERED: Lidocaine/Prilocaine CREAM 5GM TP ONE (22:41)
[2018-07-30] MEDS: Clindamycin 600mg/50ml D5W 600 MG/50 ML VIAL IVPB SCH ×3 (01:01→17:38)
[2018-07-30] MEDS: Dextrose 5%/Lactated Ringer's 1,000 ML IV SCH (01:46)
--- NOTE | 2018-07-30 05:33 | CON ---
Copied To: Jesse Fraga MD Attending MD: Jesse Fraga MD DATE: 07/29/2018 INFECTIOUS DISEASE CONSULT HISTORY OF PRESENT ILLNESS: The patient is a 33-year-old female, who is approximately 16 weeks' and was admitted with left gluteal cellulitis. The patient states she had some gluteal pain and noted a rash five days ago and it began to enlarge in size and she had fever and chills over the past two days. The patient on questioning states that she has a history of having inguinal and axillary infections and boils and it exists in most of her family. Likely this patient has hidradenitis suppurativa. LABORATORY DATA: Her labs include white count is 26.1, hemoglobin 12.8. She has a left shift and there were no bands. She also has a sedimentation rate of 90. Her creatinine is 0.6, and her GFR is greater than 60. Blood sugar is elevated at 206. She states she has no history of diabetes. Liver function tests are within normal limits. Urine has 6 microscopic wbc's. PHYSICAL EXAMINATION: VITAL SIGNS: Of note, the patient is 356 pounds. HEENT: Within normal limits. NECK: Supple, although thick. LUNGS: Have distant breath sounds, but are clear. HEART: Regular sinus rhythm. No murmur. ABDOMEN: Obese and soft, with positive bowel sounds. EXTREMITIES: No calf tenderness. There is edema. SKIN: The buttock has a large erythematous fluctuant area on her left buttock. It is at least greater than 10 cm. ASSESSMENT AND PLAN: So at this point in time, the patient should be treated with clindamycin 600 mg intravenous piggyback every 8 hours and I have started Rocephin 2 g intravenous piggyback every 24 hours. The patient would likely need some sort of form of drainage and may be treatment in the future by her primary medical doctor for hidradenitis. Jesse Fraga MD
[2018-07-30] MEDS ORDERED: Dextrose 5%/0.45% NS 1,000 ML IV SCH (06:45)
[2018-07-30] MEDS ORDERED: HYDROmorphone 1 mg/ml ISec IVP PRN ×2 (09:00→14:37)
[2018-07-30] MEDS ORDERED: Lidocaine/Prilocaine CREAM 5GM TP ONE ×2 (09:16→10:57)
[2018-07-30] MEDS: cefTRIAXone 2 GM in Sodium Chloride 0.9% 100 ML IVPB SCH (09:21)
[2018-07-30 10:05] LABS: BASO % 0.1 % (0.0-2.0); HEMOGLOBIN 11.7 g/dL (12.0-16.0); LYMPH # 0.9 K/uL (1.0-4.3); LYMPH % 3.7 % (20.0-40.0); MEAN CELL VOLUME 89.4 fl (81.0-99.0); MEAN CORPUSCULAR HEMOGLOBIN 29.7 pg (27.0-31.0); MEAN CORPUSCULAR HGB CONC 33.2 g/dL (33.0-37.0); MEAN PLATELET VOLUME 9.2 fl (7.2-11.7); MONO # 1.3 K/uL (0.0-0.8); MONO % 5.4 % (0.0-10.0); NEUT # 21.4 K/uL (1.8-7.0); NEUT % 90.8 % (50.0-75.0); NRBC % 0.1 % (0.0-0.0); PLATELET COUNT 188 K/uL (130-400); RBC 3.96 Mil/uL (3.80-5.20); RED CELL DISTRIBUTION WIDTH 13.2 % (11.5-14.5); WHITE BLOOD COUNT 23.6 K/uL (4.8-10.8)
[2018-07-30 10:31] LABS: ALBUMIN 2.8 g/dL (3.5-5.0); ALT/SGPT 32 U/L (9-52); AST/SGOT 18 U/L (14-36); BLOOD UREA NITROGEN 3 mg/dl (7-17); CALCIUM 8.8 mg/dL (8.4-10.2); GFR NON-AFRICAN AMERICAN > 60
[2018-07-30] MEDS ORDERED: Lidocaine 2% GEL TOP ONE (10:58)
[2018-07-30] MEDS ORDERED: Lidocaine 2% w Epi 1:100,000 Inj IJ ONE (10:58)
--- NOTE | 2018-07-30 12:36 | PCM.PROC ---
- Incision & Drainage Of Abscess Anesthesia: Lidocaine 2%, With Epi Procedure: Incised W/Scalpel Blade#: (11), Drained Pus, Probed To Break Up Loculations, Cultures Obtained And Sent To Lab (Determination that pt should have further exploration in OR, consent obtained)
[2018-07-30] MEDS ORDERED: Propofol 10 mg/ml Inj (20 ML) ONE (13:02)
[2018-07-30] MEDS ORDERED: Rocuronium 10 mg/ml (5 ml) ONE (13:02)
[2018-07-30] MEDS ORDERED: Succinylcholine 200 mg/10 ml Inj IV ONE (13:02)
[2018-07-30] MEDS ORDERED: Bupivacaine HCl 0.25% PF (30 ml) Inj ONE (13:02)
[2018-07-30] MEDS ORDERED: Lidocaine 4% (Laryng-O-Jet) Kit MM ONE (13:02)
[2018-07-30] MEDS ORDERED: Desflurane Inhalation Anesthetic Liq (240 ml) ONE (13:19)
--- NOTE | 2018-07-30 14:03 | US ---
Date of service: 07/29/2018 PROCEDURE: Limited ultrasound of the left lower extremity, nonvascular HISTORY: Left gluteal cellulitis look for abscesses COMPARISON: None TECHNIQUE: Targeted high-resolution ultrasound of the left lower extremity was performed with real-time linear scanner. FINDINGS: There is extensive subcutaneous edema in the left lower extremity medially and in the left buttock. There are 3 well-circumscribed hypoechoic lesions in the deep gluteal soft tissue is measures 1.8 x 0.5, 2.3 x 1.1 and 3.9 x 1.8 cm. No significant peripheral or central vascularity. IMPRESSION: Findings are most compatible with cellulitis and phlegmon/developing abscess in the left gluteal soft tissues, the largest measures 3.9 x 1.8 cm. A preliminary report was provided by [employer] [facility].
[2018-07-30 14:08] LABS: ANISOCYTOSIS SLIGHT; BANDS 2 % (0-2); LYMPHOCYTE 3 % (20-50); MONOCYTE 5 % (0-10); NEUTROPHIL 90 % (42-75); PLATELET ESTIMATE NORMAL (NORMAL); TOTAL CELLS COUNTED 100; TOXIC GRANULATION PRESENT
--- NOTE | 2018-07-30 15:10 | PCM.SURG1 ---
Surgeon's Initial Post Op Note - Surgeon's Notes Surgeon: Dr. Royal Vp [employer] Marketing: Petra Buck, PGY-2 Type of Anesthesia: General Endo Anesthesia Administered By: Dr. Frederick Pre-Operative Diagnosis: Left gluteal abscess Operative Findings: See op report Post-Operative Diagnosis: Left gluteal abscess Operation Performed: Incision and drainage of Left gluteal abcess Specimen/Specimens Removed: Abscess fluid Estimated Blood Loss: EBL {In ML}: 20 Blood Products Given: N/A Drains Used: [place] (x4) Post-Op Condition: Good Date of Surgery/Procedure: 07/30/18 Time of Surgery/Procedure: 15:10
[2018-07-30] MEDS ORDERED: Oxycodone/Acetaminophen 5/325 mg Tab PO PRN (15:11)
[2018-07-30] MEDS: Lactated Ringer's 1,000 ML IV SCH (16:00)
[2018-07-30] MEDS: Potassium Ch 20mEq in D5-1/2NS 1,000 ML IV SCH ×2 (17:38→21:32)
--- NOTE | 2018-07-30 18:19 | CP.PCM.PN ---
Addendum entered and electronically signed by Martin Grider MD 07/30/18 18 :38: On physical exam: -Left gluteus: mild decrease in cellulitis diameter, hydrogen cell tender, erythematous and indurated. Original Note: <Martin Grider - Last Filed: 07/30/18 18:16> Subjective - Date & Time of Evaluation Date of Evaluation: 07/30/18 Time of Evaluation: 10:45 - Subjective Subjective: 33 y/o F evaluated and examined by bedside with Dr Xie by bedside. Pt reports no improvement since yesterday, L gluteal area remains tender. Pt will go for I&D later today. Objective - Vital Signs/Intake and Output Vital Signs (last 24 hours): Temp Pulse Resp BP Pulse Ox 99.7 F H 105 H 18 92/59 L 97 07/30/18 16:30 07/30/18 16:30 07/30/18 16:30 07/30/18 16:30 07/30/18 16:30 Intake and Output: 07/30/18 07/30/18 06:59 18:59 Intake Total 400 Output Total 500 Balance -100 - Medications Medications: Current Medications Acetaminophen (Tylenol 325mg Tab) 650 mg PO Q6 PRN PRN Reason: Fever >100.4 F Acetaminophen (Tylenol 325mg Tab) 650 mg PO Q6 PRN PRN Reason: Pain, Mild (1-3) Acetaminophen (Tylenol 325mg Tab) 650 mg PO Q4 [facility] Last Admin: 07/30/18 12:50 Dose: Not Given Hydromorphone HCl (Dilaudid) 1 mg IVP Q4 PRN PRN Reason: Pain, severe (8-10) Last Admin: 07/30/18 17:36 Dose: 1 mg Clindamycin Phosphate (Cleocin) 600 mg in 50 mls @ 50 mls/hr IVPB Q8 [facility] PRN Reason: Protocol Last Admin: 07/30/18 17:38 Dose: 50 mls/hr Ceftriaxone Sodium 2 gm/ (Sodium Chloride) 100 mls @ 100 mls/hr IVPB DAILY [facility] PRN Reason: Protocol Last Admin: 07/30/18 09:21 Dose: 100 mls/hr Potassium Chloride/Dextrose/Sod Cl (Potassium Chl 20 Meq In D5-1/2ns) 1,000 mls @ 125 mls/hr IV .Q8H [facility] Last Admin: 07/30/18 17:38 Dose: Not Given Lactated Ringer's (Lactated Ringer's) 1,000 mls @ 200 mls/hr IV .Q5H [facility] Last Admin: 07/30/18 16:00 Dose: 300 mls Insulin Detemir (Levemir) 5 units SC [facility] Oxycodone/Acetaminophen (Percocet 5/325 Mg Tab) 1 tab PO Q4 PRN PRN Reason: Pain, moderate (4-7) Stop: 08/02/18 15:12 - Labs Labs: 07/30/18 09:56 07/30/18 09:56 PT 12.7 Seconds (9.8-13.1) 07/28/18 16:15 INR 1.1 07/28/18 16:15 APTT 28.9 Seconds (25.6-37.1) 07/28/18 16:15 - Constitutional Appears: No Acute Distress - Head Exam Head Exam: NORMAL INSPECTION - Eye Exam Eye Exam: EOMI - ENT Exam ENT Exam: Mucous Membranes Moist - Neck Exam Neck Exam: Full ROM. absent: Meningismus - Respiratory Exam Respiratory Exam: Clear to Ausculation Bilateral, NORMAL BREATHING PATTERN - Cardiovascular Exam Cardiovascular Exam: +S1, +S2 - GI/Abdominal Exam GI & Abdominal Exam: Soft. absent: Distended, Guarding, Tenderness - Extremities Exam Extremities Exam: Full ROM. absent: Tenderness - Neurological Exam Neurological Exam: Alert, Awake, Oriented x3 Assessment and Plan - Assessment and Plan (Free Text) Assessment: 33 y/o female at 16 weeks GA, is admitted for L gluteus cellulitis, sepsis and DM discovered on current admission. --Increased WBC's, tachycardic, fever with suspected source of infection being L gluteal cellulitis. --Will transfer pt to Telemetry. --Continue with IV Clindamycin and Ceftriaxone, --OBGYN consult for well-being evaluation. --Gen Surgery on board. --ID on board, Dr Fraga --Management as ordered. <Sterling Xie - Last Filed: 08/03/18 18:20> Objective - Vital Signs/Intake and Output Vital Signs (last 24 hours): Temp Pulse Resp BP Pulse Ox 97.9 F 88 20 119/74 97 09/03/18 16:19 08/03/18 16:19 08/03/18 16:19 08/03/18 16:19 08/03/18 16:19 - Medications Medications: Current Medications Acetaminophen (Tylenol 325mg Tab) 650 mg PO Q6 PRN PRN Reason: Fever >100.4 F Last Admin: 07/30/18 20:17 Dose: 650 mg Acetaminophen (Tylenol 325mg Tab) 650 mg PO Q4 [facility] Last Admin: 08/03/18 17:24 Dose: 650 mg Dextrose (Dextrose 50% Inj) 0 ml IV STAT PRN; Protocol PRN Reason: Hypoglycemia Protocol Dextrose (Glutose 15) 0 gm PO ONCE PRN; Protocol PRN Reason: Hypoglycemia Protocol Docusate Sodium (Colace) 100 mg PO BID [facility] Last Admin: 08/03/18 17:00 Dose: Not Given Enoxaparin Sodium (Lovenox) 40 mg SC Q12 [facility] PRN Reason: Protocol Last Admin: 08/03/18 09:33 Dose: 40 mg Glucagon (Glucagen Diagnostic Kit) 0 mg IM STAT PRN; Protocol PRN Reason: Hypoglycemia Protocol Hydromorphone HCl (Dilaudid) 1 mg IVP Q3H PRN PRN Reason: Pain, severe (8-10) Last Admin: 08/03/18 17:23 Dose: 1 mg Ceftriaxone Sodium 2 gm/ (Sodium Chloride) 100 mls @ 100 mls/hr IVPB DAILY [facility] PRN Reason: Protocol Last Admin: 08/03/18 09:34 Dose: 100 mls/hr Lactated Ringer's (Lactated Ringer's) 1,000 mls @ 80 mls/hr IV .[id number] [facility] Last Admin: 08/03/18 06:47 Dose: 80 mls/hr Insulin Detemir (Levemir) 12 units SC HS [facility] Last Admin: 08/02/18 22:38 Dose: 12 units Insulin Human Regular (Humulin R) 0 units SC ACHS [facility] PRN Reason: Protocol Last Admin: 08/03/18 17:25 Dose: 2 units Ketorolac Tromethamine (Toradol) 30 mg IVP Q6 PRN PRN Reason: Pain, Mild (1-3) Last Admin: 08/02/18 20:41 Dose: 30 mg Lidocaine (Lidoderm) 1 ea TD DAILY [facility] Last Admin: 08/03/18 09:33 Dose: 1 ea Oxycodone HCl (Oxycodone Immediate Release Tab) 10 mg PO Q6 PRN PRN Reason: Pain, moderate (4-7) - Labs Labs: 08/03/18 07:30 08/03/18 07:30 PT 12.7 Seconds (9.8-13.1) 07/28/18 16:15 INR 1.1 07/28/18 16:15 APTT 28.9 Seconds (25.6-37.1) 07/28/18 16:15 Assessment and Plan - Assessment and Plan (Free Text) Plan: i was present during evaluation and discussed with Dr Grider re plans of care and mgt.
[2018-07-30] MEDS: Insulin Detemir 100 Units/ml Inj SC SCH (21:40)
[2018-07-31] MEDS: Clindamycin 600mg/50ml D5W 600 MG/50 ML VIAL IVPB SCH ×3 (00:52→17:06)
[2018-07-31] MEDS: Potassium Ch 20mEq in D5-1/2NS 1,000 ML IV SCH ×2 (04:42→08:17)
[2018-07-31 05:52] LABS: HEMOGLOBIN 11.6 g/dL (12.0-16.0); MEAN CELL VOLUME 89.9 fl (81.0-99.0); MEAN CORPUSCULAR HEMOGLOBIN 29.9 pg (27.0-31.0); MEAN CORPUSCULAR HGB CONC 33.3 g/dL (33.0-37.0); RBC 3.89 Mil/uL (3.80-5.20); RED CELL DISTRIBUTION WIDTH 13.5 % (11.5-14.5); WHITE BLOOD COUNT 21.1 K/uL (4.8-10.8)
[2018-07-31 06:46] LABS: ALBUMIN 2.6 g/dL (3.5-5.0); CALCIUM 8.6 mg/dL (8.4-10.2)
--- NOTE | 2018-07-31 07:25 | OP ---
Copied To: Petra Buck DO Attending MD: Alejandro Royal MD PROCEDURE DATE: 07/30/2018 SURGEON: Alejandro Royal MD ELEMENTARY MATH TUTOR: Petra Buck DO, PGY-2 ANESTHESIOLOGIST: Paolo Frederick MD ANESTHESIA: General endotracheal. PREOPERATIVE DIAGNOSIS: Left gluteal cellulitis and abscess. POSTOPERATIVE DIAGNOSIS: Left gluteal abscess. FINDINGS: Abscess of left gluteus/buttock area. SPECIMEN: None. BLOOD LOSS: 20 mL. DRAINS: [place] x4. COMPLICATIONS: None. INDICATIONS FOR THE PROCEDURE: Pato Sims is a 33-year-old female who is currently 16 weeks' who presented to the emergency department with left gluteal cellulitis and pain. The patient states that the pain began five days prior, is exquisitely tender and painful. The patient started to have subjective fevers 2 days prior to admission with nausea, nonbloody emesis, nonbloody diarrhea. The patient was admitted and started on antibiotic therapy. After admission, it was determined that the patient would benefit from bedside incision and drainage procedure. The patient was consented for the same. A bedside I and D procedure was performed during which it was determined that the patient would need more extensive incision and drainage with possible debridement and would therefore need to be taken to the OR for the same. The patient was consented for intraoperative incision and drainage with possible debridement. DESCRIPTION OF PROCEDURE: The patient was taken to the preoperative holding area where the left gluteal area was marked. The patient was brought into the operating room, and general anesthesia was induced. The patient was then repositioned into left lateral decubitus. A time-out was completed verifying correct patient, procedure, site, my alpesh, and positioning. Dressing from bedside I & D was removed. The patient was prepped and draped in the usual sterile fashion. Original incision site was extended and explored, loculations were broken up and the cavity was gently explored with findings of tracks superiorly, medially and inferiorly. Fluid was evacuated from the cavity. Additional incisions were made at the superior aspect, the medial aspect, and the inferior aspect of the abscess. [place] drains were placed x 4. The abscess was irrigated copiously with hydrogen peroxide. A dressing was applied with gauze, abdominal pads, and tape. All instruments, sutures and sponge counts were declared to be correct at the end of the procedure. The patient tolerated the procedure well and was extubated and taken to the postanesthesia care unit in stable condition. Petra Buck DO Alejandro Royal MD MTDD
[2018-07-31] MEDS: cefTRIAXone 2 GM in Sodium Chloride 0.9% 100 ML IVPB SCH (08:27)
--- NOTE | 2018-07-31 09:39 | CP.PCM.PN ---
Subjective - Date & Time of Evaluation Date of Evaluation: 07/31/18 Time of Evaluation: 09:37 - Subjective Subjective: General surgery progress note for Dr. India Buck, PGY-2 Pt S & E at bedside at 0730 Pt reports being stiff from not really moving due to the pain of left buttock. Does not want to eat due to potential for moving her bowels. Had fever post operatively Tmax 102.4. Denies N & V, chills. Objective - Vital Signs/Intake and Output Vital Signs (last 24 hours): Temp Pulse Resp BP Pulse Ox 98.2 F 109 H 20 94/59 L 97 07/31/18 08:39 07/31/18 08:00 07/31/18 08:00 07/31/18 08:00 07/31/18 08:00 - Medications Medications: Current Medications Acetaminophen (Tylenol 325mg Tab) 650 mg PO Q6 PRN PRN Reason: Fever >100.4 F Last Admin: 07/30/18 20:17 Dose: 650 mg Acetaminophen (Tylenol 325mg Tab) 650 mg PO Q4 [facility] Last Admin: 07/31/18 08:39 Dose: 650 mg Hydromorphone HCl (Dilaudid) 1 mg IVP Q3H PRN PRN Reason: Pain, moderate (4-7) Last Admin: 07/31/18 08:28 Dose: 1 mg Clindamycin Phosphate (Cleocin) 600 mg in 50 mls @ 50 mls/hr IVPB Q8 [facility] PRN Reason: Protocol Last Admin: 07/31/18 08:20 Dose: 50 mls/hr Ceftriaxone Sodium 2 gm/ (Sodium Chloride) 100 mls @ 100 mls/hr IVPB DAILY [facility] PRN Reason: Protocol Last Admin: 07/31/18 08:27 Dose: 100 mls/hr Potassium Chloride/Dextrose/Sod Cl (Potassium Chl 20 Meq In D5-1/2ns) 1,000 mls @ 125 mls/hr IV .Q8H [facility] Last Admin: 07/31/18 08:17 Dose: 125 mls/hr Lactated Ringer's (Lactated Ringer's) 1,000 mls @ 200 mls/hr IV .Q5H [facility] Last Admin: 07/30/18 16:00 Dose: 300 mls Insulin Detemir (Levemir) 5 units SC HS [facility] Last Admin: 07/30/18 21:40 Dose: 5 units - Labs Labs: 07/31/18 05:20 07/31/18 05:20 PT 12.7 Seconds (9.8-13.1) 07/28/18 16:15 INR 1.1 07/28/18 16:15 APTT 28.9 Seconds (25.6-37.1) 07/28/18 16:15 - Constitutional Appears: Non-toxic, No Acute Distress - Head Exam Head Exam: ATRAUMATIC, NORMAL INSPECTION, NORMOCEPHALIC - Eye Exam Eye Exam: EOMI, Normal appearance - ENT Exam ENT Exam: Mucous Membranes Moist, Normal Exam - Neck Exam Neck Exam: Full ROM, Normal Inspection - Respiratory Exam Respiratory Exam: NORMAL BREATHING PATTERN - Cardiovascular Exam Cardiovascular Exam: REGULAR RHYTHM, +S1, +S2 - GI/Abdominal Exam GI & Abdominal Exam: Soft. absent: Distended (obese), Tenderness - Extremities Exam Extremities Exam: Tenderness (left gluteal area with [place] x [address], dressing saturated with seropurulent output) - Neurological Exam Neurological Exam: Alert, Awake, CN II-XII Intact, Oriented x3 - Psychiatric Exam Psychiatric exam: Normal Affect, Normal Mood - Skin Skin Exam: Erythema (left gluteal area), Warm Assessment and Plan - Assessment and Plan (Free Text) Assessment: 33F POD#1 s/p left gluteal abscess I & D w/[place] x 4 Plan: Pain control IVF Cont IV Abx OOBTC Ambulate Encourage IS use Dressing changes as needed Will MARCIN attending Cielo, PGY-2
[2018-07-31] MEDS ORDERED: Glucagon Recombinant 1 mg Inj IM PRN (14:13)
[2018-07-31] MEDS ORDERED: Dextrose 50% SYRINGE Inj (50 ml) IV PRN (14:13)
--- NOTE | 2018-07-31 16:03 | CP.PCM.PN ---
<Martin Grider - Last Filed: 07/31/18 15:59> Subjective - Date & Time of Evaluation Date of Evaluation: 07/31/18 Time of Evaluation: 10:45 - Subjective Subjective: 33 y/o F evaluated and examined by bedside. Pt reports L gluteus is very painful. Pt developed fever after surgical I&D. Objective - Vital Signs/Intake and Output Vital Signs (last 24 hours): Temp Pulse Resp BP Pulse Ox 98.4 F 95 H 20 115/71 98 07/31/18 13:30 07/31/18 12:00 07/31/18 12:00 07/31/18 12:00 07/31/18 12:00 - Medications Medications: Current Medications Acetaminophen (Tylenol 325mg Tab) 650 mg PO Q6 PRN PRN Reason: Fever >100.4 F Last Admin: 07/30/18 20:17 Dose: 650 mg Acetaminophen (Tylenol 325mg Tab) 650 mg PO Q4 [facility] Last Admin: 07/31/18 13:30 Dose: 650 mg Dextrose (Dextrose 50% Inj) 0 ml IV STAT PRN; Protocol PRN Reason: Hypoglycemia Protocol Dextrose (Glutose 15) 0 gm PO ONCE PRN; Protocol PRN Reason: Hypoglycemia Protocol Glucagon (Glucagen Diagnostic Kit) 0 mg IM STAT PRN; Protocol PRN Reason: Hypoglycemia Protocol Hydromorphone HCl (Dilaudid) 1 mg IVP Q3H PRN PRN Reason: Pain, moderate (4-7) Last Admin: 07/31/18 13:32 Dose: 1 mg Clindamycin Phosphate (Cleocin) 600 mg in 50 mls @ 50 mls/hr IVPB Q8 [facility] PRN Reason: Protocol Last Admin: 07/31/18 08:20 Dose: 50 mls/hr Ceftriaxone Sodium 2 gm/ (Sodium Chloride) 100 mls @ 100 mls/hr IVPB DAILY [facility] PRN Reason: Protocol Last Admin: 07/31/18 08:27 Dose: 100 mls/hr Lactated Ringer's (Lactated Ringer's) 1,000 mls @ 200 mls/hr IV .Q5H [facility] Last Admin: 07/30/18 16:00 Dose: 300 mls Potassium Chloride/Sodium Chloride (Potassium Chl 20 Meq In Ns) 1,000 mls @ 150 mls/hr IV .Q6H40M [facility] Stop: 08/01/18 12:00 Insulin Detemir (Levemir) 5 units SC HS [facility] Last Admin: 07/30/18 21:40 Dose: 5 units Insulin Human Regular (Humulin R) 0 units SC ACHS [facility] PRN Reason: Protocol - Labs Labs: 07/31/18 05:20 07/31/18 05:20 PT 12.7 Seconds (9.8-13.1) 07/28/18 16:15 INR 1.1 07/28/18 16:15 APTT 28.9 Seconds (25.6-37.1) 07/28/18 16:15 - Constitutional Appears: No Acute Distress - Head Exam Head Exam: NORMAL INSPECTION - Eye Exam Eye Exam: EOMI, Normal appearance - ENT Exam ENT Exam: Mucous Membranes Dry - Neck Exam Neck Exam: Full ROM. absent: Meningismus - Respiratory Exam Respiratory Exam: NORMAL BREATHING PATTERN. absent: Rhonchi, Wheezes - Cardiovascular Exam Cardiovascular Exam: REGULAR RHYTHM, +S1, +S2 - GI/Abdominal Exam GI & Abdominal Exam: Distended, Soft. absent: Guarding, Tenderness - Rectal Exam Additional comments: L gluteal area with erythema, [place] x [address], dressing saturated with seropurulent material. - Extremities Exam Extremities Exam: Full ROM. absent: Calf Tenderness, Normal Inspection, Pedal Edema - Neurological Exam Neurological Exam: Alert, Awake, Oriented x3 Assessment and Plan - Assessment and Plan (Free Text) Assessment: 33 y/o female at 16 weeks GA, is admitted for L gluteus cellulitis, sepsis and DM discovered on current admission. -- Tachycardic, WBC trending down (21,1 today) --Insulin Levemir 5 units HS --IV Fluids as decreased PO intak--Continue with IV Clindamycin and Ceftriaxone, --OBGYN consult for well-being evaluation. --Gen Surgery on board. --ID on board, Dr Fraga --Management as ordered. <Sterling Xie - Last Filed: 08/03/18 18:21> Objective - Vital Signs/Intake and Output Vital Signs (last 24 hours): Temp Pulse Resp BP Pulse Ox 97.9 F 88 20 119/74 97 08/03/18 16:19 08/03/18 16:19 08/03/18 16:19 08/03/18 16:19 08/03/18 16:19 - Medications Medications: Current Medications Acetaminophen (Tylenol 325mg Tab) 650 mg PO Q6 PRN PRN Reason: Fever >100.4 F Last Admin: 07/30/18 20:17 Dose: 650 mg Acetaminophen (Tylenol 325mg Tab) 650 mg PO Q4 [facility] Last Admin: 08/03/18 17:24 Dose: 650 mg Dextrose (Dextrose 50% Inj) 0 ml IV STAT PRN; Protocol PRN Reason: Hypoglycemia Protocol Dextrose (Glutose 15) 0 gm PO ONCE PRN; Protocol PRN Reason: Hypoglycemia Protocol Docusate Sodium (Colace) 100 mg PO BID [facility] Last Admin: 08/03/18 17:00 Dose: Not Given Enoxaparin Sodium (Lovenox) 40 mg SC Q12 [facility] PRN Reason: Protocol Last Admin: 08/03/18 09:33 Dose: 40 mg Glucagon (Glucagen Diagnostic Kit) 0 mg IM STAT PRN; Protocol PRN Reason: Hypoglycemia Protocol Hydromorphone HCl (Dilaudid) 1 mg IVP Q3H PRN PRN Reason: Pain, severe (8-10) Last Admin: 08/03/18 17:23 Dose: 1 mg Ceftriaxone Sodium 2 gm/ (Sodium Chloride) 100 mls @ 100 mls/hr IVPB DAILY [facility] PRN Reason: Protocol Last Admin: 08/03/18 09:34 Dose: 100 mls/hr Lactated Ringer's (Lactated Ringer's) 1,000 mls @ 80 mls/hr IV .[id number] [facility] Last Admin: 08/03/18 06:47 Dose: 80 mls/hr Insulin Detemir (Levemir) 12 units SC HS [facility] Last Admin: 08/02/18 22:38 Dose: 12 units Insulin Human Regular (Humulin R) 0 units SC ACHS [facility] PRN Reason: Protocol Last Admin: 08/03/18 17:25 Dose: 2 units Ketorolac Tromethamine (Toradol) 30 mg IVP Q6 PRN PRN Reason: Pain, Mild (1-3) Last Admin: 08/02/18 20:41 Dose: 30 mg Lidocaine (Lidoderm) 1 ea TD DAILY [facility] Last Admin: 08/03/18 09:33 Dose: 1 ea Oxycodone HCl (Oxycodone Immediate Release Tab) 10 mg PO Q6 PRN PRN Reason: Pain, moderate (4-7) - Labs Labs: 08/03/18 07:30 08/03/18 07:30 PT 12.7 Seconds (9.8-13.1) 07/28/18 16:15 INR 1.1 07/28/18 16:15 APTT 28.9 Seconds (25.6-37.1) 07/28/18 16:15 Assessment and Plan - Assessment and Plan (Free Text) Plan: I was present during evaluation and discussed with Dr Grider re plans of care and mgt. Sterling Daniels M.D.
[2018-07-31] MEDS: Potassium Chl 20 mEq in NS 1,000 ML IV SCH ×2 (17:05→18:40)
[2018-07-31] MEDS: Insulin Regular 100 units/ml SC SCH ×2 (17:23→22:23)
[2018-07-31] MEDS: Insulin Detemir 100 Units/ml Inj SC SCH (22:22)
[2018-08-01] MEDS: Clindamycin 600mg/50ml D5W 600 MG/50 ML VIAL IVPB SCH ×4 (01:07→17:53)
--- NOTE | 2018-08-01 02:28 | CON ---
Copied To: Alfred Nino MD Attending MD: DATE: 07/31/2018 HISTORY OF PRESENT ILLNESS: This is 33-year-old G2, P0-0-1-0 at about 16 weeks , who was admitted to the hospital on 07/28/2018 for a large left gluteal cellulitis and she was also diagnosed with diabetes. The patient has since underwent an incision and drainage of the left gluteal abscess on 07/30/2018. She had an ultrasound on 07/28/2018 that revealed the age was 15 weeks and 5 days, which would give her a due date of 01/14/2019. 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 Of note, the patient reports that she sees an MFM in [place] for her OB care and the patient also reported to me that she was checked for diabetes prior to and it was negative. PAST MEDICAL HISTORY: Healthy although infectious disease consult states that she likely has history of hidradenitis suppurativa. PAST SURGICAL HISTORY: Laparoscopic cholecystectomy in 01/2016, termination of 08/2005, D and C for endometrial polyps done on 03/2009 and wisdom teeth done in 03/2016. MEDICATIONS: vitamins, acetaminophen as needed for fever, ceftriaxone 2 gm IV daily, clindamycin 600 mg every 8 hours. The patient is also receiving Dilaudid 1 mg IV every 3 hours as needed and she is also on insulin, Levemir and Humulin. ALLERGIES: CODEINE CAUSES VOMITING, LATEX CAUSES RASH. DEVELOPMENT REPRESENTATIVE HISTORY: The patient cannot remember when she had her first period. She reports her periods are monthly. The patient reports that she has history of genital herpes and she reports that she has history of abnormal paps, positive HPV in 2016 (?), although the patient was not sure of her pap history. OB HISTORY: termination of in 08/2005 and the patient is currently at around 16 weeks. SOCIAL HISTORY: The patient reports that she quit smoking about a month ago and she denies alcohol and illegal drug use. PHYSICAL EXAMINATION: VITAL SIGNS: Afebrile, vital signs are stable. GENERAL: The patient appears comfortable lying on her side under the covers. HEART: Regular rate and rhythm. LUNGS: Clear to auscultation bilaterally. ABDOMEN: Soft, nontender, obese. EXTREMITIES: Nontender. LABORATORY: White count on 07/28/2018 was 23, white count is now 21. Hemoglobin is currently 11.6. On 07/29/2018, her ESR is elevated at 90. Last sugar check drawn in was 231. Sugars are ranging from 168 to 375. Hemoglobin A1c on 07/29/2018 was 7.3. ASSESSMENT: This is a 33-year-old G2, P0-0-1-0 at 16 plus 2 weeks by ultrasound done on 07/28/2018, who has been admitted for a large left gluteal abscess on IV antibiotics, status post incision and drainage with [place] drains placed. I offered to do a heart check w/ doppler on her exam but she declined and said it would take a log time to find the heart. Recommend that she be on a vitamin. Recommended to the nurse practitioner that endocrine be consulted, given her sugars are not well controlled. Patient to likely follow up outpatient with her MFM in [place] for OB care. Alfred Nino MD MTDRain
[2018-08-01 05:53] LABS: HEMOGLOBIN 10.6 g/dL (12.0-16.0); MEAN CELL VOLUME 89.2 fl (81.0-99.0); MEAN CORPUSCULAR HEMOGLOBIN 29.5 pg (27.0-31.0); MEAN CORPUSCULAR HGB CONC 33.1 g/dL (33.0-37.0); RBC 3.6 Mil/uL (3.80-5.20); RED CELL DISTRIBUTION WIDTH 13.7 % (11.5-14.5); WHITE BLOOD COUNT 19.8 K/uL (4.8-10.8)
[2018-08-01 06:06] LABS: CALCIUM 8.1 mg/dL (8.4-10.2)
--- NOTE | 2018-08-01 08:34 | CP.PCM.PN ---
Subjective - Date & Time of Evaluation Date of Evaluation: 08/01/18 Time of Evaluation: 08:31 - Subjective Subjective: General Surgery Dr. Royal Pt S&E @bedside. NAEO. pt reports continued, though improved gluteal pain. Pt denies F/C, N/V. pain controlled w/ medication. tolerating diet, though decreased appetite. Objective - Vital Signs/Intake and Output Vital Signs (last 24 hours): Temp Pulse Resp BP Pulse Ox 99.1 F 110 H 18 117/73 97 08/01/18 04:53 08/01/18 04:53 08/01/18 04:53 08/01/18 04:53 08/01/18 04:53 - Medications Medications: Current Medications Acetaminophen (Tylenol 325mg Tab) 650 mg PO Q6 PRN PRN Reason: Fever >100.4 F Last Admin: 07/30/18 20:17 Dose: 650 mg Acetaminophen (Tylenol 325mg Tab) 650 mg PO Q4 [facility] Last Admin: 08/01/18 04:15 Dose: 650 mg Dextrose (Dextrose 50% Inj) 0 ml IV STAT PRN; Protocol PRN Reason: Hypoglycemia Protocol Dextrose (Glutose 15) 0 gm PO ONCE PRN; Protocol PRN Reason: Hypoglycemia Protocol Glucagon (Glucagen Diagnostic Kit) 0 mg IM STAT PRN; Protocol PRN Reason: Hypoglycemia Protocol Hydromorphone HCl (Dilaudid) 1 mg IVP Q3H PRN PRN Reason: Pain, moderate (4-7) Last Admin: 08/01/18 06:42 Dose: 1 mg Clindamycin Phosphate (Cleocin) 600 mg in 50 mls @ 50 mls/hr IVPB Q8 [facility] PRN Reason: Protocol Last Admin: 08/01/18 01:07 Dose: 50 mls/hr Ceftriaxone Sodium 2 gm/ (Sodium Chloride) 100 mls @ 100 mls/hr IVPB DAILY [facility] PRN Reason: Protocol Last Admin: 07/31/18 08:27 Dose: 100 mls/hr Lactated Ringer's (Lactated Ringer's) 1,000 mls @ 200 mls/hr IV .Q5H [facility] Last Admin: 07/30/18 16:00 Dose: 300 mls Potassium Chloride/Sodium Chloride (Potassium Chl 20 Meq In Ns) 1,000 mls @ 150 mls/hr IV .Q6H40M [facility] Stop: 08/01/18 12:00 Last Admin: 07/31/18 18:40 Dose: Not Given Insulin Detemir (Levemir) 5 units SC [facility] Last Admin: 07/31/18 22:22 Dose: 5 units Insulin Human Regular (Humulin R) 0 units SC [facility] PRN Reason: Protocol Last Admin: 07/31/18 22:23 Dose: 1 units - Labs Labs: 08/01/18 05:05 08/01/18 05:05 PT 12.7 Seconds (9.8-13.1) 07/28/18 16:15 INR 1.1 07/28/18 16:15 APTT 28.9 Seconds (25.6-37.1) 07/28/18 16:15 - Constitutional Appears: Non-toxic, No Acute Distress - Head Exam Head Exam: NORMAL INSPECTION - Eye Exam Eye Exam: Normal appearance - ENT Exam ENT Exam: Mucous Membranes Moist - Respiratory Exam Respiratory Exam: NORMAL BREATHING PATTERN. absent: Accessory Muscle Use, Respiratory Distress - Cardiovascular Exam Cardiovascular Exam: REGULAR RHYTHM. absent: Bradycardia, Tachycardia - GI/Abdominal Exam GI & Abdominal Exam: Soft. absent: Distended (morbidly obese), Tenderness - Rectal Exam Additional comments: improved erythema superior L gluteus. tissue boggy, few bullae improved induration at superior aspect continued erythema, induration at inferior aspect, TTP skin necrosis surrounding [place] drains x4. area of skin necrosis at L gluteal cleft/fold junction - Extremities Exam Extremities Exam: Normal Inspection - Neurological Exam Neurological Exam: Alert, Awake, Oriented x3 - Psychiatric Exam Psychiatric exam: Normal Affect, Normal Mood - Skin Skin Exam: Dry, Warm Assessment and Plan - Assessment and Plan (Free Text) Assessment: 33 y/o F POD#2 s/p left gluteal abscess I & D w/ [place] x 4 - cont pain management - IVF/IV Abx - ADAT - dressing changes PRN - pt may shower - encourage OOB to chair/Amb/IS use Pt discussed w/ Dr. Lele Parnell DO PGY3
[2018-08-01] MEDS: Insulin Regular 100 units/ml SC SCH ×4 (08:45→22:52)
[2018-08-01] MEDS: Enoxaparin 40 mg Syringe SC SCH ×2 (09:00→22:00)
[2018-08-01] MEDS: Potassium Chl 20 mEq in NS 1,000 ML IV SCH (09:16)
[2018-08-01] MEDS: cefTRIAXone 2 GM in Sodium Chloride 0.9% 100 ML IVPB SCH (09:18)
--- NOTE | 2018-08-01 16:42 | CP.PCM.PN ---
Subjective - Date & Time of Evaluation Date of Evaluation: 08/01/18 Time of Evaluation: 16:30 - Subjective Subjective: I D NOTE HAD SURGICAL DRAINAGE NO HELPFUL CULTURES CONTINUE CLINDAMYCIN/ROCEPHEN Objective - Vital Signs/Intake and Output Vital Signs (last 24 hours): Temp Pulse Resp BP Pulse Ox 97.6 F 105 H 20 105/64 97 08/01/18 12:00 08/01/18 12:00 08/01/18 12:00 08/01/18 12:00 08/01/18 12:00 - Medications Medications: Current Medications Acetaminophen (Tylenol 325mg Tab) 650 mg PO Q6 PRN PRN Reason: Fever >100.4 F Last Admin: 07/30/18 20:17 Dose: 650 mg Acetaminophen (Tylenol 325mg Tab) 650 mg PO Q4 [facility] Last Admin: 08/01/18 15:07 Dose: 650 mg Dextrose (Dextrose 50% Inj) 0 ml IV STAT PRN; Protocol PRN Reason: Hypoglycemia Protocol Dextrose (Glutose 15) 0 gm PO ONCE PRN; Protocol PRN Reason: Hypoglycemia Protocol Enoxaparin Sodium (Lovenox) 40 mg SC Q12 [facility] PRN Reason: Protocol Glucagon (Glucagen Diagnostic Kit) 0 mg IM STAT PRN; Protocol PRN Reason: Hypoglycemia Protocol Hydromorphone HCl (Dilaudid) 1 mg IVP Q3H PRN PRN Reason: Pain, moderate (4-7) Last Admin: 08/01/18 14:48 Dose: 1 mg Clindamycin Phosphate (Cleocin) 600 mg in 50 mls @ 50 mls/hr IVPB Q8 [facility] PRN Reason: Protocol Last Admin: 08/01/18 09:17 Dose: 50 mls/hr Ceftriaxone Sodium 2 gm/ (Sodium Chloride) 100 mls @ 100 mls/hr IVPB DAILY [facility] PRN Reason: Protocol Last Admin: 08/01/18 09:18 Dose: 100 mls/hr Lactated Ringer's (Lactated Ringer's) 1,000 mls @ 200 mls/hr IV .Q5H [facility] Last Admin: 07/30/18 16:00 Dose: 300 mls Insulin Detemir (Levemir) 12 units SC HS [facility] Insulin Human Regular (Humulin R) 0 units SC ACHS [facility] PRN Reason: Protocol Last Admin: 09/01/18 12:45 Dose: 2 units - Labs Labs: 08/01/18 05:05 08/01/18 05:05 PT 12.7 Seconds (9.8-13.1) 07/28/18 16:15 INR 1.1 07/28/18 16:15 APTT 28.9 Seconds (25.6-37.1) 07/28/18 16:15
[2018-08-01] MEDS ORDERED: oxyCODONE 10 mg Immediate Release Tab PO PRN (17:54)
[2018-08-01] MEDS: Insulin Detemir 100 Units/ml Inj SC SCH (22:48)
[2018-08-02] MEDS: Clindamycin 600mg/50ml D5W 600 MG/50 ML VIAL IVPB SCH ×3 (02:00→17:04)
[2018-08-02] MEDS: Insulin Regular 100 units/ml SC SCH ×4 (08:45→22:36)
--- NOTE | 2018-08-02 09:10 | CP.PCM.PN ---
Subjective - Date & Time of Evaluation Date of Evaluation: 08/02/18 Time of Evaluation: 06:50 - Subjective Subjective: General Surgery Pt seen and examined, febrile to 101.4 yesterday. Pain worse overnight, meds changed with some relief. No new complaints. Dressings quickly saturate per pt. Objective - Vital Signs/Intake and Output Vital Signs (last 24 hours): Temp Pulse Resp BP Pulse Ox 97.7 F 90 20 108/66 97 08/02/18 08:00 08/02/18 08:00 08/02/18 08:00 08/02/18 08:00 08/02/18 08:00 - Medications Medications: Current Medications Acetaminophen (Tylenol 325mg Tab) 650 mg PO Q6 PRN PRN Reason: Fever >100.4 F Last Admin: 07/30/18 20:17 Dose: 650 mg Acetaminophen (Tylenol 325mg Tab) 650 mg PO Q4 [facility] Last Admin: 08/02/18 06:00 Dose: 650 mg Dextrose (Dextrose 50% Inj) 0 ml IV STAT PRN; Protocol PRN Reason: Hypoglycemia Protocol Dextrose (Glutose 15) 0 gm PO ONCE PRN; Protocol PRN Reason: Hypoglycemia Protocol Docusate Sodium (Colace) 100 mg PO BID [facility] Last Admin: 08/01/18 22:43 Dose: 100 mg Enoxaparin Sodium (Lovenox) 40 mg SC Q12 [facility] PRN Reason: Protocol Last Admin: 08/01/18 22:00 Dose: 40 mg Glucagon (Glucagen Diagnostic Kit) 0 mg IM STAT PRN; Protocol PRN Reason: Hypoglycemia Protocol Hydromorphone HCl (Dilaudid) 1 mg IVP Q3H PRN PRN Reason: Pain, severe (8-10) Last Admin: 08/02/18 06:37 Dose: 1 mg Clindamycin Phosphate (Cleocin) 600 mg in 50 mls @ 50 mls/hr IVPB Q8 [facility] PRN Reason: Protocol Last Admin: 08/02/18 02:00 Dose: 50 mls/hr Ceftriaxone Sodium 2 gm/ (Sodium Chloride) 100 mls @ 100 mls/hr IVPB DAILY [facility] PRN Reason: Protocol Last Admin: 08/01/18 09:18 Dose: 100 mls/hr Lactated Ringer's (Lactated Ringer's) 1,000 mls @ 200 mls/hr IV .Q5H [facility] Last Admin: 07/30/18 16:00 Dose: 300 mls Insulin Detemir (Levemir) 12 units SC HS [facility] Last Admin: 08/01/18 22:48 Dose: 12 units Insulin Human Regular (Humulin R) 0 units SC ACHS [facility] PRN Reason: Protocol Last Admin: 08/01/18 22:52 Dose: Not Given Ketorolac Tromethamine (Toradol) 30 mg IVP Q6 PRN PRN Reason: Pain, Mild (1-3) Lidocaine (Lidoderm) 1 ea TD DAILY [facility] Oxycodone HCl (Oxycodone Immediate Release Tab) 10 mg PO Q6 PRN PRN Reason: Pain, moderate (4-7) - Labs Labs: 08/01/18 05:05 08/01/18 05:05 PT 12.7 Seconds (9.8-13.1) 07/28/18 16:15 INR 1.1 07/28/18 16:15 APTT 28.9 Seconds (25.6-37.1) 07/28/18 16:15 - Constitutional Appears: Non-toxic, No Acute Distress - Head Exam Head Exam: ATRAUMATIC, NORMOCEPHALIC - Eye Exam Eye Exam: EOMI. absent: Scleral icterus - Respiratory Exam Respiratory Exam: NORMAL BREATHING PATTERN. absent: Respiratory Distress - GI/Abdominal Exam GI & Abdominal Exam: absent: Distended, Tenderness - Rectal Exam Additional comments: Improved erythema superior L gluteus. tissue boggy, few bullae Continued erythema, induration at inferior aspect, TTP, new head appears to be forming. skin necrosis surrounding solis drains x4. area of skin necrosis at L gluteal cleft/fold junction - Extremities Exam Extremities Exam: absent: Calf Tenderness, Pedal Edema - Back Exam Back Exam: absent: CVA tenderness (L), CVA tenderness (R) - Neurological Exam Neurological Exam: Alert, Awake, Oriented x3 - Skin Skin Exam: Dry, Warm Assessment and Plan - Assessment and Plan (Free Text) Assessment: 33 y/o F POD#3 s/p left gluteal abscess I & D w/ [place] x 4 Plan: - Cont pain management - IVF/IV Abx - ADAT - Dressing changes PRN - Warm packs to lower left gluteal area. - Possible MRI today to evaluate disease extent - Encourage OOB to chair/Amb/IS use Will D/W Dr. Lele Eduardo PGY4
[2018-08-02] MEDS ORDERED: Epinephrine /Lidocaine HCL 1:100,000/2% 30 ml INJ ONE (09:34)
[2018-08-02] MEDS: Lidocaine 5% Patch TD SCH (10:00)
[2018-08-02] MEDS: Enoxaparin 40 mg Syringe SC SCH ×2 (10:01→21:28)
[2018-08-02] MEDS: cefTRIAXone 2 GM in Sodium Chloride 0.9% 100 ML IVPB SCH (10:07)
[2018-08-02] MEDS: Lactated Ringer's 1,000 ML IV SCH (10:11)
[2018-08-02] MEDS ORDERED: Succinylcholine 200 mg/10 ml Inj IV ONE (11:18)
[2018-08-02] MEDS ORDERED: Lidocaine 4% (Laryng-O-Jet) Kit MM ONE (11:18)
[2018-08-02] MEDS ORDERED: Propofol 10 mg/ml Inj (20 ML) ONE (11:18)
[2018-08-02] MEDS ORDERED: Lactated Ringer's 1,000 ML IV ONE (12:35)
[2018-08-02] MEDS ORDERED: Dakin's Topical 0.25%-Half Strength (480 ml) TOP ONE (13:20)
[2018-08-02] MEDS ORDERED: Dexamethasone 4 mg/1 ml IVP PRN (13:54)
[2018-08-02] MEDS ORDERED: DiphenhydrAMINE 50 mg/ml Inj IVP PRN (13:54)
[2018-08-02] MEDS ORDERED: Lactated Ringer's 1,000 ML IV SCH (14:00)
[2018-08-02 16:10] VITALS: BMI 55.7
[2018-08-02] MEDS: Insulin Detemir 100 Units/ml Inj SC SCH (22:38)
[2018-08-03] MEDS: Clindamycin 600mg/50ml D5W 600 MG/50 ML VIAL IVPB SCH (01:13)
[2018-08-03] MEDS: Lactated Ringer's 1,000 ML IV SCH ×2 (06:47→13:09)
[2018-08-03] MEDS: Insulin Regular 100 units/ml SC SCH ×4 (06:48→21:29)
[2018-08-03 07:47] LABS: BASO % 0.3 % (0.0-2.0); EOS % 0.3 % (0.0-4.0); HEMOGLOBIN 10.7 g/dL (12.0-16.0); LYMPH # 1.4 K/uL (1.0-4.3); LYMPH % 9.5 % (20.0-40.0); MEAN CORPUSCULAR HEMOGLOBIN 29.8 pg (27.0-31.0); MEAN CORPUSCULAR HGB CONC 33.9 g/dL (33.0-37.0); MEAN PLATELET VOLUME 8.6 fl (7.2-11.7); MONO % 6.6 % (0.0-10.0); NEUT # 12.2 K/uL (1.8-7.0); NEUT % 83.3 % (50.0-75.0); PLATELET COUNT 251 K/uL (130-400); RED CELL DISTRIBUTION WIDTH 13.8 % (11.5-14.5); WHITE BLOOD COUNT 14.7 K/uL (4.8-10.8)
[2018-08-03 08:05] LABS: BLOOD UREA NITROGEN 18 mg/dl (7-17); CALCIUM 8.4 mg/dL (8.4-10.2); GFR NON-AFRICAN AMERICAN > 60
[2018-08-03 09:13] LABS: BANDS 4 % (0-2); LYMPHOCYTE 7 % (20-50); METAMYELOCYTE 1 % (0-0); MONOCYTE 2 % (0-10); MYELOCYTE 2 % (0-0); NEUTROPHIL 83 % (42-75); PROMYELOCYTE 1 % (0-0); TOTAL CELLS COUNTED 100
[2018-08-03 09:14] LABS: HYPOCHROMIC SLIGHT; PLATELET CLUMPS PRESENT; PLATELET ESTIMATE NORMAL (NORMAL); TOXIC GRANULATION PRESENT
[2018-08-03] MEDS: Enoxaparin 40 mg Syringe SC SCH ×2 (09:33→21:37)
[2018-08-03] MEDS: Lidocaine 5% Patch TD SCH (09:33)
[2018-08-03] MEDS: cefTRIAXone 2 GM in Sodium Chloride 0.9% 100 ML IVPB SCH (09:34)
--- NOTE | 2018-08-03 10:24 | CP.PCM.CON ---
History of Present Illness - History of Present Illness History of Present Illness: consult requested for pt expressing suicidal ideation pt is a 33ys old female , not currently in formal psychiatric treatment and denied any history of previous psychiatric hospitalization pt is at 16 weeks of gestational age, was admitted due to Left gluteus cellulitis. pt reported that she has been in severe pain, and that her words were taken out of context , she stated it was just a moment of despair because of her current medical problems pt denied any current changes in sleep or appetite denied any current perceptual disturbances, denied any current suicidal or homicidal ideation Past Patient History - Past Medical History & Family History Past Medical History?: Yes - Past Social History Alcohol: None Drugs: Denies - ENDOCRINE/METABOLIC Hx Endocrine Disorders: Yes (gallbladder disease) - MUSCULOSKELETAL/RHEUMATOLOGICAL Hx Falls: No - PSYCHIATRIC Hx Substance Use: No - SURGICAL HISTORY Hx Cholecystectomy: Yes (Jan 2016) Other/Comment: DNC - ANESTHESIA Hx Anesthesia: Yes Hx Anesthesia Reactions: No Meds Allergies/Adverse Reactions: Allergies Allergy/AdvReac Type Severity Reaction Status Date / Time codeine Allergy VOMITING Verified 03/17/18 16:23 latex Allergy RASH Verified 03/17/18 16:23 - Medications Medications: Current Medications Acetaminophen (Tylenol 325mg Tab) 650 mg PO Q6 PRN PRN Reason: Fever >100.4 F Last Admin: 07/30/18 20:17 Dose: 650 mg Acetaminophen (Tylenol 325mg Tab) 650 mg PO Q4 [facility] Last Admin: 08/03/18 09:36 Dose: 650 mg Dextrose (Dextrose 50% Inj) 0 ml IV STAT PRN; Protocol PRN Reason: Hypoglycemia Protocol Dextrose (Glutose 15) 0 gm PO ONCE PRN; Protocol PRN Reason: Hypoglycemia Protocol Docusate Sodium (Colace) 100 mg PO BID [facility] Last Admin: 08/03/18 09:33 Dose: 100 mg Enoxaparin Sodium (Lovenox) 40 mg SC Q12 [facility] PRN Reason: Protocol Last Admin: 08/03/18 09:33 Dose: 40 mg Glucagon (Glucagen Diagnostic Kit) 0 mg IM STAT PRN; Protocol PRN Reason: Hypoglycemia Protocol Hydromorphone HCl (Dilaudid) 1 mg IVP Q3H PRN PRN Reason: Pain, severe (8-10) Last Admin: 08/03/18 09:27 Dose: 1 mg Ceftriaxone Sodium 2 gm/ (Sodium Chloride) 100 mls @ 100 mls/hr IVPB DAILY [facility] PRN Reason: Protocol Last Admin: 08/03/18 09:34 Dose: 100 mls/hr Lactated Ringer's (Lactated Ringer's) 1,000 mls @ 200 mls/hr IV .Q5H [facility] Last Admin: 08/02/18 10:11 Dose: 200 mls/hr Lactated Ringer's (Lactated Ringer's) 1,000 mls @ 80 mls/hr IV .[id number] [facility] Last Admin: 08/03/18 06:47 Dose: 80 mls/hr Insulin Detemir (Levemir) 12 units SC HS [facility] Last Admin: 08/02/18 22:38 Dose: 12 units Insulin Human Regular (Humulin R) 0 units SC ACHS [facility] PRN Reason: Protocol Last Admin: 08/03/18 06:48 Dose: 1 units Ketorolac Tromethamine (Toradol) 30 mg IVP Q6 PRN PRN Reason: Pain, Mild (1-3) Last Admin: 08/02/18 20:41 Dose: 30 mg Lidocaine (Lidoderm) 1 ea TD DAILY [facility] Last Admin: 08/03/18 09:33 Dose: 1 ea Oxycodone HCl (Oxycodone Immediate Release Tab) 10 mg PO Q6 PRN PRN Reason: Pain, moderate (4-7) Physical Exam - Psychiatric Exam Additional comments: pt seen in bed, cooperative, mood reported tired , affect constricted, thought form coherent , denied any current perceptual disturbances, denied S/H I alert awake ox3 Results - Vital Signs Recent Vital Signs: Last Vital Signs Temp 97.8 F 08/03/18 08:00 Pulse 81 08/03/18 08:00 Resp 20 08/03/18 08:00 BP 107/66 08/03/18 08:00 Pulse Ox 98 08/03/18 08:00 - Labs Result Diagrams: 08/03/18 07:30 08/03/18 07:30 Labs: Laboratory Results - last 24 hr 08/02/18 08/02/18 08/02/18 11:39 16:07 22:08 WBC RBC Hgb Hct MCV MCH MCHC RDW Plt Count MPV Neut % (Auto) Lymph % (Auto) [place] % (Auto) Eos % (Auto) Baso % (Auto) Neut # (Auto) Lymph # (Auto) [place] # (Auto) Eos # (Auto) Baso # (Auto) Neutrophils % (Manual) Band Neutrophils % Lymphocytes % (Manual) Monocytes % (Manual) Metamyelocytes % Myelocytes % Promyelocytes % Toxic Granulation Platelet Estimate Plt Clumps, EDTA Hypochromasia (manual) Sodium Potassium Chloride Carbon Dioxide Anion Gap BUN Creatinine Est GFR ( Amer) Est GFR (Non-Af Amer) POC Glucose (mg/dL) 205 H 193 H 216 H Random Glucose Calcium 08/03/18 08/03/18 08/03/18 05:54 07:30 07:30 WBC 14.7 H RBC 3.60 L Hgb 10.7 L Hct 31.7 L MCV 88.0 MCH 29.8 MCHC 33.9 RDW 13.8 Plt Count 251 MPV 8.6 Neut % (Auto) 83.3 H Lymph % (Auto) 9.5 L [place] % (Auto) 6.6 Eos % (Auto) 0.3 Baso % (Auto) 0.3 Neut # (Auto) 12.2 H Lymph # (Auto) 1.4 [place] # (Auto) 1.0 H Eos # (Auto) 0.0 Baso # (Auto) 0.0 Neutrophils % (Manual) 83 H Band Neutrophils % 4 H Lymphocytes % (Manual) 7 L Monocytes % (Manual) 2 Metamyelocytes % 1 H Myelocytes % 2 H Promyelocytes % 1 H Toxic Granulation Present Platelet Estimate Normal Plt Clumps, EDTA Present Hypochromasia (manual) Slight Sodium 135 Potassium 3.4 L Chloride 101 Carbon Dioxide 27 Anion Gap 10 BUN 18 H Creatinine 1.0 Est GFR ( Amer) > 60 Est GFR (Non-Af Amer) > 60 POC Glucose (mg/dL) 168 H Random Glucose 159 H Calcium 8.4 Assessment & Plan - Assessment and Plan (Free Text) Assessment: mood disorder due to medical condition Plan: pt at current mental status not danger to self or others , denied S/HI pt psychiatricaly cleared for discharge upon medical clearance
--- NOTE | 2018-08-03 11:17 | CP.PCM.PN ---
Subjective - Date & Time of Evaluation Date of Evaluation: 08/03/18 Time of Evaluation: 08:00 - Subjective Subjective: Surgery: Dr. Royal Pt seen and examined. No acute overnight events. s/p I&D of gluteal/perineal abscesses. States she's feeling better this morning and her pain is more tolerable. Pt states she was finally able to get some sleep last night. Tolerating diet and denies other complaints at this time. No fevers/chills overnight. Objective - Vital Signs/Intake and Output Vital Signs (last 24 hours): Temp Pulse Resp BP Pulse Ox 97.8 F 81 20 107/66 98 08/03/18 08:00 08/03/18 08:00 08/03/18 08:00 08/03/18 08:00 08/03/18 08:00 - Medications Medications: Current Medications Acetaminophen (Tylenol 325mg Tab) 650 mg PO Q6 PRN PRN Reason: Fever >100.4 F Last Admin: 07/30/18 20:17 Dose: 650 mg Acetaminophen (Tylenol 325mg Tab) 650 mg PO Q4 [facility] Last Admin: 08/03/18 09:36 Dose: 650 mg Dextrose (Dextrose 50% Inj) 0 ml IV STAT PRN; Protocol PRN Reason: Hypoglycemia Protocol Dextrose (Glutose 15) 0 gm PO ONCE PRN; Protocol PRN Reason: Hypoglycemia Protocol Docusate Sodium (Colace) 100 mg PO BID [facility] Last Admin: 08/03/18 09:33 Dose: 100 mg Enoxaparin Sodium (Lovenox) 40 mg SC Q12 [facility] PRN Reason: Protocol Last Admin: 08/03/18 09:33 Dose: 40 mg Glucagon (Glucagen Diagnostic Kit) 0 mg IM STAT PRN; Protocol PRN Reason: Hypoglycemia Protocol Hydromorphone HCl (Dilaudid) 1 mg IVP Q3H PRN PRN Reason: Pain, severe (8-10) Last Admin: 08/03/18 09:27 Dose: 1 mg Ceftriaxone Sodium 2 gm/ (Sodium Chloride) 100 mls @ 100 mls/hr IVPB DAILY [facility] PRN Reason: Protocol Last Admin: 08/03/18 09:34 Dose: 100 mls/hr Lactated Ringer's (Lactated Ringer's) 1,000 mls @ 200 mls/hr IV .Q5H [facility] Last Admin: 08/02/18 10:11 Dose: 200 mls/hr Lactated Ringer's (Lactated Ringer's) 1,000 mls @ 80 mls/hr IV .[id number] [facility] Last Admin: 08/03/18 06:47 Dose: 80 mls/hr Insulin Detemir (Levemir) 12 units SC HS [facility] Last Admin: 08/02/18 22:38 Dose: 12 units Insulin Human Regular (Humulin R) 0 units SC ACHS [facility] PRN Reason: Protocol Last Admin: 08/03/18 06:48 Dose: 1 units Ketorolac Tromethamine (Toradol) 30 mg IVP Q6 PRN PRN Reason: Pain, Mild (1-3) Last Admin: 08/02/18 20:41 Dose: 30 mg Lidocaine (Lidoderm) 1 ea TD DAILY [facility] Last Admin: 08/03/18 09:33 Dose: 1 ea Oxycodone HCl (Oxycodone Immediate Release Tab) 10 mg PO Q6 PRN PRN Reason: Pain, moderate (4-7) - Labs Labs: 08/03/18 07:30 08/03/18 07:30 PT 12.7 Seconds (9.8-13.1) 07/28/18 16:15 INR 1.1 07/28/18 16:15 APTT 28.9 Seconds (25.6-37.1) 07/28/18 16:15 - Constitutional Appears: Well, No Acute Distress - Head Exam Head Exam: ATRAUMATIC, NORMOCEPHALIC - ENT Exam ENT Exam: Mucous Membranes Moist - Respiratory Exam Respiratory Exam: NORMAL BREATHING PATTERN - Cardiovascular Exam Cardiovascular Exam: RRR - GI/Abdominal Exam GI & Abdominal Exam: Soft. absent: Tenderness - Rectal Exam Additional comments: Left buttock with mulitple drainage sites with packing in place, erythema/ induration noted around drainage sites. - Neurological Exam Neurological Exam: Alert, Awake, Oriented x3 - Skin Skin Exam: Dry, Warm Assessment and Plan - Assessment and Plan (Free Text) Assessment: 33F s/p I&D of multiple gluteal/perineal abscesses; POD#1 Plan: - cont IV ABX per ID recs - will slowly remove packing daily, cont local wound care - f/u MRI to evaluate disease extent - encourage ambulation - d/w Dr. Lele Stevens
--- NOTE | 2018-08-03 18:43 | CP.PCM.PN ---
Subjective - Date & Time of Evaluation Date of Evaluation: 08/01/18 Time of Evaluation: 10:00 - Subjective Subjective: Patient had low grade fever. Noted foul smelling discharge Has no chest pain or SOB Noted elevated FBS. Objective - Vital Signs/Intake and Output Vital Signs (last 24 hours): Temp Pulse Resp BP Pulse Ox 97.9 F 88 20 119/74 97 08/03/18 16:19 08/03/18 16:19 08/03/18 16:19 08/03/18 16:19 08/03/18 16:19 - Medications Medications: Current Medications Acetaminophen (Tylenol 325mg Tab) 650 mg PO Q6 PRN PRN Reason: Fever >100.4 F Last Admin: 07/30/18 20:17 Dose: 650 mg Acetaminophen (Tylenol 325mg Tab) 650 mg PO Q4 [facility] Last Admin: 08/03/18 17:24 Dose: 650 mg Dextrose (Dextrose 50% Inj) 0 ml IV STAT PRN; Protocol PRN Reason: Hypoglycemia Protocol Dextrose (Glutose 15) 0 gm PO ONCE PRN; Protocol PRN Reason: Hypoglycemia Protocol Docusate Sodium (Colace) 100 mg PO BID [facility] Last Admin: 08/03/18 17:00 Dose: Not Given Enoxaparin Sodium (Lovenox) 40 mg SC Q12 [facility] PRN Reason: Protocol Last Admin: 08/03/18 09:33 Dose: 40 mg Glucagon (Glucagen Diagnostic Kit) 0 mg IM STAT PRN; Protocol PRN Reason: Hypoglycemia Protocol Hydromorphone HCl (Dilaudid) 1 mg IVP Q3H PRN PRN Reason: Pain, severe (8-10) Last Admin: 08/03/18 17:23 Dose: 1 mg Ceftriaxone Sodium 2 gm/ (Sodium Chloride) 100 mls @ 100 mls/hr IVPB DAILY [facility] PRN Reason: Protocol Last Admin: 08/03/18 09:34 Dose: 100 mls/hr Lactated Ringer's (Lactated Ringer's) 1,000 mls @ 80 mls/hr IV .[id number] [facility] Last Admin: 08/03/18 06:47 Dose: 80 mls/hr Insulin Detemir (Levemir) 12 units SC HS [facility] Last Admin: 08/02/18 22:38 Dose: 12 units Insulin Human Regular (Humulin R) 0 units SC ACHS [facility] PRN Reason: Protocol Last Admin: 08/03/18 17:25 Dose: 2 units Ketorolac Tromethamine (Toradol) 30 mg IVP Q6 PRN PRN Reason: Pain, Mild (1-3) Last Admin: 08/02/18 20:41 Dose: 30 mg Lidocaine (Lidoderm) 1 ea TD DAILY [facility] Last Admin: 08/03/18 09:33 Dose: 1 ea Oxycodone HCl (Oxycodone Immediate Release Tab) 10 mg PO Q6 PRN PRN Reason: Pain, moderate (4-7) - Labs Labs: 08/03/18 07:30 08/03/18 07:30 PT 12.7 Seconds (9.8-13.1) 07/28/18 16:15 INR 1.1 07/28/18 16:15 APTT 28.9 Seconds (25.6-37.1) 07/28/18 16:15 - Head Exam Head Exam: NORMAL INSPECTION - Eye Exam Eye Exam: Normal appearance - ENT Exam ENT Exam: Mucous Membranes Moist - Respiratory Exam Respiratory Exam: Clear to Ausculation Bilateral - Cardiovascular Exam Cardiovascular Exam: REGULAR RHYTHM - GI/Abdominal Exam GI & Abdominal Exam: Normal Bowel Sounds - Psychiatric Exam Psychiatric exam: Anxious, Depressed Assessment and Plan (1) Cellulitis and abscess of buttock Status: Acute (2) Diabetes mellitus type 2 in obese Status: Acute (3) Status: Acute - Assessment and Plan (Free Text) Plan: Cont meds Cont IV antibiotics for I and D follow up with Dr Fraga.
--- NOTE | 2018-08-03 18:47 | CP.PCM.PN ---
Subjective - Date & Time of Evaluation Date of Evaluation: 08/02/18 Time of Evaluation: 10:00 - Subjective Subjective: Patient still has a lot of drainage. Has no fever. Still with persistently elevated WBC. Objective - Vital Signs/Intake and Output Vital Signs (last 24 hours): Temp Pulse Resp BP Pulse Ox 97.9 F 88 20 119/74 97 08/03/18 16:19 08/03/18 16:19 08/03/18 16:19 08/03/18 16:19 08/03/18 16:19 - Medications Medications: Current Medications Acetaminophen (Tylenol 325mg Tab) 650 mg PO Q6 PRN PRN Reason: Fever >100.4 F Last Admin: 07/30/18 20:17 Dose: 650 mg Acetaminophen (Tylenol 325mg Tab) 650 mg PO Q4 [facility] Last Admin: 08/03/18 17:24 Dose: 650 mg Dextrose (Dextrose 50% Inj) 0 ml IV STAT PRN; Protocol PRN Reason: Hypoglycemia Protocol Dextrose (Glutose 15) 0 gm PO ONCE PRN; Protocol PRN Reason: Hypoglycemia Protocol Docusate Sodium (Colace) 100 mg PO BID [facility] Last Admin: 08/03/18 17:00 Dose: Not Given Enoxaparin Sodium (Lovenox) 40 mg SC Q12 [facility] PRN Reason: Protocol Last Admin: 08/03/18 09:33 Dose: 40 mg Glucagon (Glucagen Diagnostic Kit) 0 mg IM STAT PRN; Protocol PRN Reason: Hypoglycemia Protocol Hydromorphone HCl (Dilaudid) 1 mg IVP Q3H PRN PRN Reason: Pain, severe (8-10) Last Admin: 08/03/18 17:23 Dose: 1 mg Ceftriaxone Sodium 2 gm/ (Sodium Chloride) 100 mls @ 100 mls/hr IVPB DAILY [facility] PRN Reason: Protocol Last Admin: 08/03/18 09:34 Dose: 100 mls/hr Lactated Ringer's (Lactated Ringer's) 1,000 mls @ 80 mls/hr IV .[id number] [facility] Last Admin: 08/03/18 06:47 Dose: 80 mls/hr Insulin Detemir (Levemir) 12 units SC HS [facility] Last Admin: 08/02/18 22:38 Dose: 12 units Insulin Human Regular (Humulin R) 0 units SC ACHS [facility] PRN Reason: Protocol Last Admin: 08/03/18 17:25 Dose: 2 units Ketorolac Tromethamine (Toradol) 30 mg IVP Q6 PRN PRN Reason: Pain, Mild (1-3) Last Admin: 08/02/18 20:41 Dose: 30 mg Lidocaine (Lidoderm) 1 ea TD DAILY [facility] Last Admin: 08/03/18 09:33 Dose: 1 ea Oxycodone HCl (Oxycodone Immediate Release Tab) 10 mg PO Q6 PRN PRN Reason: Pain, moderate (4-7) - Labs Labs: 08/03/18 07:30 08/03/18 07:30 PT 12.7 Seconds (9.8-13.1) 07/28/18 16:15 INR 1.1 07/28/18 16:15 APTT 28.9 Seconds (25.6-37.1) 07/28/18 16:15 - Head Exam Head Exam: NORMAL INSPECTION - Eye Exam Eye Exam: Normal appearance - ENT Exam ENT Exam: Mucous Membranes Moist - Respiratory Exam Respiratory Exam: Clear to Ausculation Bilateral - Cardiovascular Exam Cardiovascular Exam: REGULAR RHYTHM - GI/Abdominal Exam GI & Abdominal Exam: Normal Bowel Sounds - Neurological Exam Neurological Exam: Awake Assessment and Plan (1) Cellulitis and abscess of buttock Status: Acute (2) Diabetes mellitus type 2 in obese Status: Acute (3) Status: Acute - Assessment and Plan (Free Text) Plan: Cont meds Cont Rocephin follow up with OB. Cont wound care.
--- NOTE | 2018-08-03 18:50 | CP.PCM.PN ---
Subjective - Date & Time of Evaluation Date of Evaluation: 08/03/18 Time of Evaluation: 14:20 - Subjective Subjective: Patient has less pain Still with some drainage Currently on Rocephin Noted decrease in WBC to 14 Has no fever. still with elevated FBS. On Levemir. Objective - Vital Signs/Intake and Output Vital Signs (last 24 hours): Temp Pulse Resp BP Pulse Ox 97.9 F 88 20 119/74 97 08/03/18 16:19 08/03/18 16:19 08/03/18 16:19 08/03/18 16:19 08/03/18 16:19 - Medications Medications: Current Medications Acetaminophen (Tylenol 325mg Tab) 650 mg PO Q6 PRN PRN Reason: Fever >100.4 F Last Admin: 07/30/18 20:17 Dose: 650 mg Acetaminophen (Tylenol 325mg Tab) 650 mg PO Q4 [facility] Last Admin: 08/03/18 17:24 Dose: 650 mg Dextrose (Dextrose 50% Inj) 0 ml IV STAT PRN; Protocol PRN Reason: Hypoglycemia Protocol Dextrose (Glutose 15) 0 gm PO ONCE PRN; Protocol PRN Reason: Hypoglycemia Protocol Docusate Sodium (Colace) 100 mg PO BID [facility] Last Admin: 08/03/18 17:00 Dose: Not Given Enoxaparin Sodium (Lovenox) 40 mg SC Q12 [facility] PRN Reason: Protocol Last Admin: 08/03/18 09:33 Dose: 40 mg Glucagon (Glucagen Diagnostic Kit) 0 mg IM STAT PRN; Protocol PRN Reason: Hypoglycemia Protocol Hydromorphone HCl (Dilaudid) 1 mg IVP Q3H PRN PRN Reason: Pain, severe (8-10) Last Admin: 08/03/18 17:23 Dose: 1 mg Ceftriaxone Sodium 2 gm/ (Sodium Chloride) 100 mls @ 100 mls/hr IVPB DAILY [facility] PRN Reason: Protocol Last Admin: 08/03/18 09:34 Dose: 100 mls/hr Lactated Ringer's (Lactated Ringer's) 1,000 mls @ 80 mls/hr IV .[id number] [facility] Last Admin: 08/03/18 06:47 Dose: 80 mls/hr Insulin Detemir (Levemir) 12 units SC HS [facility] Last Admin: 08/02/18 22:38 Dose: 12 units Insulin Human Regular (Humulin R) 0 units SC ACHS [facility] PRN Reason: Protocol Last Admin: 08/03/18 17:25 Dose: 2 units Ketorolac Tromethamine (Toradol) 30 mg IVP Q6 PRN PRN Reason: Pain, Mild (1-3) Last Admin: 08/02/18 20:41 Dose: 30 mg Lidocaine (Lidoderm) 1 ea TD DAILY [facility] Last Admin: 08/03/18 09:33 Dose: 1 ea Oxycodone HCl (Oxycodone Immediate Release Tab) 10 mg PO Q6 PRN PRN Reason: Pain, moderate (4-7) - Labs Labs: 08/03/18 07:30 08/03/18 07:30 PT 12.7 Seconds (9.8-13.1) 07/28/18 16:15 INR 1.1 07/28/18 16:15 APTT 28.9 Seconds (25.6-37.1) 07/28/18 16:15 - Head Exam Head Exam: NORMAL INSPECTION - Eye Exam Eye Exam: Normal appearance - ENT Exam ENT Exam: Mucous Membranes Moist - Respiratory Exam Respiratory Exam: Clear to Ausculation Bilateral - Cardiovascular Exam Cardiovascular Exam: REGULAR RHYTHM - GI/Abdominal Exam GI & Abdominal Exam: Normal Bowel Sounds - Neurological Exam Neurological Exam: Awake, Oriented x3 Assessment and Plan (1) Cellulitis and abscess of buttock Status: Acute (2) Diabetes mellitus type 2 in obese Status: Acute (3) Status: Acute - Assessment and Plan (Free Text) Plan: Cont meds Cont tx Cont wound care adjust meds increase levemir.
[2018-08-03] MEDS: Insulin Lispro Mix 75/25 100 units/ml (HumaLog) 10ml SC SCH (21:00)
[2018-08-03] MEDS: Insulin Detemir 100 Units/ml Inj SC SCH (21:36)
[2018-08-04 05:40] LABS: BASO % 0.2 % (0.0-2.0); EOS % 0.3 % (0.0-4.0); LYMPH # 1.8 K/uL (1.0-4.3); LYMPH % 12.8 % (20.0-40.0); MEAN CELL VOLUME 88.1 fl (81.0-99.0); MEAN CORPUSCULAR HEMOGLOBIN 29.4 pg (27.0-31.0); MEAN CORPUSCULAR HGB CONC 33.4 g/dL (33.0-37.0); MEAN PLATELET VOLUME 8.5 fl (7.2-11.7); MONO % 7.2 % (0.0-10.0); NEUT # 11.4 K/uL (1.8-7.0); NEUT % 79.5 % (50.0-75.0); NRBC % 0.1 % (0.0-0.0); RBC 3.39 Mil/uL (3.80-5.20); RED CELL DISTRIBUTION WIDTH 13.7 % (11.5-14.5); WHITE BLOOD COUNT 14.4 K/uL (4.8-10.8)
[2018-08-04 06:06] LABS: BLOOD UREA NITROGEN 13 mg/dl (7-17); CALCIUM 8.1 mg/dL (8.4-10.2); GFR NON-AFRICAN AMERICAN > 60
[2018-08-04] MEDS: Insulin Regular 100 units/ml SC SCH ×4 (06:39→22:00)
[2018-08-04] MEDS: cefTRIAXone 2 GM in Sodium Chloride 0.9% 100 ML IVPB SCH (09:01)
--- NOTE | 2018-08-04 09:01 | PN ---
Copied To: Alejandro Royal MD Attending MD: Alejandro Royal MD DATE: 08/03/2018 SUBJECTIVE: Kiki Sims is seen on the floor at [facility]. Initially the pain was better, but this morning the pain got worse again, status post an I and D yesterday. The drains were removed because she claims an allergy to latex. The packing is removed. There is little bit of pus behind the packing. The wounds had to be irrigated with peroxide and lightly packed. 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 We have lanced it twice and really do not have control of it yet. We will see her in the morning, but we will probably need to have it re-debrided tomorrow. There is a chance we will put a wound VAC on. Cultures are known to be strep viridans. Because of her , an MRI is ordered just to make sure that we are not loosing a source control issue. We will plan in the operating room in the morning. Alejandro Royal MD
[2018-08-04] MEDS: Lidocaine 5% Patch TD SCH (09:03)
[2018-08-04] MEDS: Lactated Ringer's 1,000 ML IV SCH (09:03)
[2018-08-04] MEDS: Insulin Lispro Mix 75/25 100 units/ml (HumaLog) 10ml SC SCH ×2 (09:04→21:43)
[2018-08-04] MEDS: Potassium CL 10mEq/100ml 100 ML IVPB SCH ×4 (09:17→13:28)
[2018-08-04] MEDS ORDERED: Succinylcholine 200 mg/10 ml Inj IV ONE (14:25)
[2018-08-04] MEDS ORDERED: Propofol 10 mg/ml Inj (20 ML) ONE (14:25)
[2018-08-04] MEDS ORDERED: Rocuronium 10 mg/ml (5 ml) ONE (14:25)
[2018-08-04] MEDS ORDERED: Lidocaine 4% (Laryng-O-Jet) Kit MM ONE (14:26)
[2018-08-04] MEDS ORDERED: Lactated Ringer's 1,000 ML IV ONE ×2 (15:35→18:05)
[2018-08-04] MEDS ORDERED: Dakin's Topical 0.25%-Half Strength (480 ml) TOP ONE ×2 (16:00)
[2018-08-04] MEDS ORDERED: Sevoflurane - Inhalation Anesthetic Liq (250 ml) ONE (16:38)
[2018-08-04] MEDS ORDERED: DiphenhydrAMINE 50 mg/ml Inj IVP PRN (17:06)
[2018-08-04] MEDS ORDERED: Dexamethasone 4 mg/1 ml IVP PRN (17:06)
--- NOTE | 2018-08-04 17:21 | PCM.SURG1 ---
Surgeon's Initial Post Op Note - Surgeon's Notes Surgeon: Lele Workers Compensation Coordinator: PGY4, Ludwig PGY2 Type of Anesthesia: General Endo Pre-Operative Diagnosis: L gluteal abscesses Operative Findings: see op note Post-Operative Diagnosis: L gluteal abscesses, necrotic tissue Operation Performed: L gluteal abscesses I&D with debridement of necrotic tissue Specimen/Specimens Removed: N\A Estimated Blood Loss: EBL {In ML}: 100 Blood Products Given: N/A Drains Used: Farhat (with silicone drains) Date of Surgery/Procedure: 08/04/18 Time of Surgery/Procedure: 15:40
[2018-08-04] MEDS: HYDROmorphone 1 mg/ml ISec IVP PRN ×2 (17:22→17:35)
--- NOTE | 2018-08-04 17:31 | CP.PCM.PN ---
Subjective - Date & Time of Evaluation Date of Evaluation: 08/04/18 Time of Evaluation: 17:30 - Subjective Subjective: id note patient back to or still c pain ,tenderness,and purulence continue clindamycin ,rocephen Objective - Vital Signs/Intake and Output Vital Signs (last 24 hours): Temp Pulse Resp BP Pulse Ox 98.1 F 83 20 167/86 H 97 08/04/18 12:57 08/04/18 12:57 08/04/18 12:57 08/04/18 12:57 08/04/18 12:57 Intake and Output: 08/04/18 08/04/18 06:59 18:59 Intake Total 1000 Balance 1000 - Medications Medications: Current Medications Acetaminophen (Tylenol 325mg Tab) 650 mg PO Q6 PRN PRN Reason: Fever >100.4 F Last Admin: 07/30/18 20:17 Dose: 650 mg Acetaminophen (Tylenol 325mg Tab) 650 mg PO Q4 [facility] Last Admin: 08/04/18 13:32 Dose: Not Given Dexamethasone (Decadron Inj) 4 mg IVP ONCE PRN PRN Reason: Nausea/Vomiting Stop: 08/04/18 19:07 Dextrose (Dextrose 50% Inj) 0 ml IV STAT PRN; Protocol PRN Reason: Hypoglycemia Protocol Dextrose (Glutose 15) 0 gm PO ONCE PRN; Protocol PRN Reason: Hypoglycemia Protocol Diphenhydramine HCl (Benadryl) 25 mg IVP Q6 PRN PRN Reason: Itching / Pruritus Stop: 08/04/18 19:07 Docusate Sodium (Colace) 100 mg PO BID [facility] Last Admin: 08/04/18 16:19 Dose: Not Given Enoxaparin Sodium (Lovenox) 40 mg SC Q12 [facility] PRN Reason: Protocol Last Admin: 08/03/18 21:37 Dose: 40 mg Glucagon (Glucagen Diagnostic Kit) 0 mg IM STAT PRN; Protocol PRN Reason: Hypoglycemia Protocol Hydromorphone HCl (Dilaudid) 1 mg IVP Q3H PRN PRN Reason: Pain, severe (8-10) Last Admin: 08/04/18 12:18 Dose: 1 mg Hydromorphone HCl (Dilaudid) 1 mg IVP Q10M PRN PRN Reason: Pain, severe (8-10) Stop: 08/04/18 19:07 Ceftriaxone Sodium 2 gm/ (Sodium Chloride) 100 mls @ 100 mls/hr IVPB DAILY [facility] PRN Reason: Protocol Last Admin: 08/04/18 09:01 Dose: 100 mls/hr Lactated Ringer's (Lactated Ringer's) 1,000 mls @ 80 mls/hr IV .[id number] [facility] Last Admin: 08/04/18 09:03 Dose: 80 mls/hr Lactated Ringer's (Lactated Ringer's) 1,000 mls @ 125 mls/hr IV .Q8H [facility] Clindamycin Phosphate 600 mg/ (Sodium Chloride) 54 mls @ 54 mls/hr IVPB Q8 [facility] PRN Reason: Protocol Insulin Detemir (Levemir) 15 units SC HS [facility] Last Admin: 08/03/18 21:36 Dose: 15 u Insulin Human Regular (Humulin R) 0 units SC ACHS [facility] PRN Reason: Protocol Last Admin: 08/04/18 16:19 Dose: Not Given Insulin Lispro Protam/Lispro Human (Humalog Mix 75/25) 5 units SC Q12 [facility] Last Admin: 08/04/18 09:04 Dose: Not Given Ketorolac Tromethamine (Toradol) 30 mg IVP Q6 PRN PRN Reason: Pain, Mild (1-3) Last Admin: 08/02/18 20:41 Dose: 30 mg Lidocaine (Lidoderm) 1 ea TD DAILY [facility] Last Admin: 08/04/18 09:03 Dose: 1 ea Ondansetron HCl (Zofran Inj) 4 mg IVP ONCE PRN PRN Reason: Nausea/Vomiting Stop: 08/04/18 19:07 Oxycodone HCl (Oxycodone Immediate Release Tab) 10 mg PO Q6 PRN PRN Reason: Pain, moderate (4-7) - Labs Labs: 08/04/18 05:00 08/04/18 05:00 PT 12.7 Seconds (9.8-13.1) 07/28/18 16:15 INR 1.1 07/28/18 16:15 APTT 28.9 Seconds (25.6-37.1) 07/28/18 16:15
[2018-08-04] MEDS: Insulin Detemir 100 Units/ml Inj SC SCH (21:40)
--- NOTE | 2018-08-04 23:53 | CP.PCM.PN ---
Subjective - Date & Time of Evaluation Date of Evaluation: 08/04/18 Time of Evaluation: 11:00 - Subjective Subjective: patient continues to have persistent malodorous discharge on the abscess area. Afebrile. WBC 14 Objective - Vital Signs/Intake and Output Vital Signs (last 24 hours): Temp Pulse Resp BP Pulse Ox 98.2 F 98 H 18 140/79 98 08/04/18 19:53 08/04/18 19:53 08/04/18 19:53 08/04/18 19:53 08/04/18 19:53 Intake and Output: 08/04/18 08/05/18 18:59 06:59 Intake Total 1125 Balance 1125 - Medications Medications: Current Medications Acetaminophen (Tylenol 325mg Tab) 650 mg PO Q6 PRN PRN Reason: Fever >100.4 F Last Admin: 07/30/18 20:17 Dose: 650 mg Acetaminophen (Tylenol 325mg Tab) 650 mg PO Q4 [facility] Last Admin: 08/04/18 19:06 Dose: 650 mg Dextrose (Dextrose 50% Inj) 0 ml IV STAT PRN; Protocol PRN Reason: Hypoglycemia Protocol Dextrose (Glutose 15) 0 gm PO ONCE PRN; Protocol PRN Reason: Hypoglycemia Protocol Docusate Sodium (Colace) 100 mg PO BID [facility] Last Admin: 08/04/18 16:19 Dose: Not Given Enoxaparin Sodium (Lovenox) 40 mg SC Q12 [facility] PRN Reason: Protocol Last Admin: 08/03/18 21:37 Dose: 40 mg Glucagon (Glucagen Diagnostic Kit) 0 mg IM STAT PRN; Protocol PRN Reason: Hypoglycemia Protocol Hydromorphone HCl (Dilaudid) 1 mg IVP Q3H PRN PRN Reason: Pain, severe (8-10) Last Admin: 08/04/18 20:35 Dose: 1 mg Ceftriaxone Sodium 2 gm/ (Sodium Chloride) 100 mls @ 100 mls/hr IVPB DAILY [facility] PRN Reason: Protocol Last Admin: 08/04/18 09:01 Dose: 100 mls/hr Lactated Ringer's (Lactated Ringer's) 1,000 mls @ 80 mls/hr IV .[id number] [facility] Last Admin: 08/04/18 09:03 Dose: 80 mls/hr Lactated Ringer's (Lactated Ringer's) 1,000 mls @ 125 mls/hr IV .Q8H [facility] Clindamycin Phosphate 600 mg/ (Sodium Chloride) 54 mls @ 54 mls/hr IVPB Q8 [facility] PRN Reason: Protocol Insulin Detemir (Levemir) 15 units SC HS [facility] Last Admin: 08/04/18 21:40 Dose: 15 u Insulin Human Regular (Humulin R) 0 units SC ACHS [facility] PRN Reason: Protocol Last Admin: 08/04/18 16:19 Dose: Not Given Insulin Lispro Protam/Lispro Human (Humalog Mix 75/25) 5 units SC Q12 [facility] Last Admin: 08/04/18 21:43 Dose: 5 units Ketorolac Tromethamine (Toradol) 30 mg IVP Q6 PRN PRN Reason: Pain, Mild (1-3) Last Admin: 08/04/18 19:06 Dose: 30 mg Lidocaine (Lidoderm) 1 ea TD DAILY [facility] Last Admin: 08/04/18 09:03 Dose: 1 ea Oxycodone HCl (Oxycodone Immediate Release Tab) 10 mg PO Q6 PRN PRN Reason: Pain, moderate (4-7) - Labs Labs: 08/04/18 05:00 08/04/18 05:00 PT 12.7 Seconds (9.8-13.1) 07/28/18 16:15 INR 1.1 07/28/18 16:15 APTT 28.9 Seconds (25.6-37.1) 07/28/18 16:15 - Head Exam Head Exam: NORMAL INSPECTION - Eye Exam Eye Exam: Normal appearance - ENT Exam ENT Exam: Mucous Membranes Moist - Respiratory Exam Respiratory Exam: Clear to Ausculation Bilateral - Cardiovascular Exam Cardiovascular Exam: REGULAR RHYTHM - GI/Abdominal Exam GI & Abdominal Exam: Normal Bowel Sounds - Neurological Exam Neurological Exam: Awake Assessment and Plan (1) Cellulitis and abscess of buttock Status: Acute (2) Diabetes mellitus type 2 in obese Status: Resolved (3) Status: Acute (4) Morbid (severe) obesity due to excess calories Status: Acute - Assessment and Plan (Free Text) Plan: Cont iv antibiotics daily wound cleaning cont tx
--- NOTE | 2018-08-05 01:52 | OP ---
Copied To: Jose David Eduardo DO Attending MD: Alejandro Royal MD PROCEDURE DATE: 08/02/2018 SURGEON: Alejandro Royal MD VETERINARY RECEPTIONIST: Jose David Eduardo DO, PGY-4 ANESTHESIA: General endotracheal. PREOPERATIVE DIAGNOSIS: Left gluteal abscesses. POSTOPERATIVE DIAGNOSIS: Left gluteal abscesses. BLOOD LOSS: 50 mL. DRAINS: None. DESCRIPTION OF THE PROCEDURE: The patient was brought to the operating room where a time-out process was followed. The patient was intubated and given general endotracheal anesthesia. The patient was positioned in the lithotomy position. The left gluteal area was prepped and draped in the usual sterile fashion. A digital rectal examination was performed to look for any fistula tract or involvement of the rectum, none was found at that time. The prior incision and drainage sites were then probed, and further loculations were opened up and drained. We then moved to the perineal area with three more stab incisions were placed over areas of slight fluctuance with purulent drainage. These areas were also probed for further loculations, and several pockets were opened up and drained. The three stab incisions were placed radial to the sphincter. After the drainage, the incisions were flushed with saline mixed with hydrogen peroxide several times and then re-probed for any further loculations, none were found at that time. Of note, there was some devitalized tissue found underneath the skin,but did not include the skin around the incisions at that time. Some of the tissue was debrided, and then the incisions were flushed again with sterile water mixed with hydrogen peroxide. After further washout, vaginal packing was cut into strips and socked in Dakin solution and was packed into the wounds to help with hemostasis and maintaining some . The other prior incision and drainage incisions were also packed with the vaginal packing socked with Dakin solution. A sterile dressing was then applied. The nurses' sponge and instrument counts were all correct at the end of the case. The patient tolerated the procedure well. She was transferred to the PACU in stable condition. Jose David Eduardo DO Alejandro Royal MD [facility] # [id number]
[2018-08-05] MEDS: Lactated Ringer's 1,000 ML IV SCH ×3 (04:07→17:30)
[2018-08-05 05:50] LABS: HEMOGLOBIN 10.2 g/dL (12.0-16.0); MEAN CELL VOLUME 88.4 fl (81.0-99.0); MEAN CORPUSCULAR HEMOGLOBIN 29.5 pg (27.0-31.0); MEAN CORPUSCULAR HGB CONC 33.3 g/dL (33.0-37.0); RBC 3.46 Mil/uL (3.80-5.20); RED CELL DISTRIBUTION WIDTH 13.7 % (11.5-14.5); WHITE BLOOD COUNT 16.3 K/uL (4.8-10.8)
[2018-08-05] MEDS: Insulin Regular 100 units/ml SC SCH ×4 (06:40→21:30)
--- NOTE | 2018-08-05 08:16 | OP ---
Copied To: Jairon Munroe DO Attending MD: Alejandro Royal MD PROCEDURE DATE: 08/04/2018 SURGEON: Alejandro Royal MD ASSISTANTS: Jose David Eduardo DO, PGY-4 and Jairon Munroe DO, PGY-2 ANESTHESIOLOGIST: Duglas Mares MD ANESTHESIA: General endotracheal. PREOPERATIVE DIAGNOSIS: Left gluteal abscesses. POSTOPERATIVE DIAGNOSIS: Left gluteal abscesses. OPERATIVE FINDINGS: Residual purulent material, necrotic tissue undermining. BLOOD LOSS: 100 mL. DRAINS: Two silicone [place] drains. COMPLICATIONS: None. DESCRIPTION OF PROCEDURE: The patient was taken to the operating room and placed in lithotomy position on the operating table. General endotracheal anesthesia was administered. The patient was prepped and draped in the usual fashion. The area of the left gluteal with previous I & D wounds were inspected and explored. Blood and purulent material were expressed from the wounds. Communication between the cavities were found and made sure adequate drainage was possible. A cruciate incision was made on the left middle gluteal wound. The incision was performed with a #15 blade. The cavity was explored. Necrotic material and blood were found. Two silicone [place] drains were placed and secured with a single silk suture. The first was placed in the inferior medial left gluteal wound with undermining posteriorly. The second was placed in the most medial left gluteal wound tracking across the midline and exiting on the right medial gluteus. Versajet was used to debride the visible necrotic tissue and ensure adequate tissue perfusion. The cavities were again explored and then irrigated with Dakin's solution. Packing was placed in the wound after being soaked in Dakin's solution. A 4x4s with abdominal pad dressing was applied to the surgical site. Blood loss was approximately 100 mL. There were no complications. The patient tolerated the procedure well and was transferred to the PACU in stable condition. All counts were correct and confirmed by Nursing. Jairon Munroe DO Alejandro Royal MD [facility]
[2018-08-05] MEDS: cefTRIAXone 2 GM in Sodium Chloride 0.9% 100 ML IVPB SCH (09:05)
--- NOTE | 2018-08-05 09:06 | US ---
Date of service: 08/04/2018 PROCEDURE: OB Pelvic Ultrasound HISTORY: heartrate and movement LMP: 03/25/2018 COMPARISON: None available. FINDINGS: The exam is limited -the requesting physician was primarily interested in the heart rate and motion UTERUS: Gestational sac: Single intrauterine gestation. Heart rate: 171 bpm. age (Ultrasound estimated): Not provided -not requested Jeannette-gestational hemorrhage: Not assessed-not requested Date of delivery (LMP estimated) : 12/30/2018 Uterus measures not requested cm. CERVIX: Assessment not requested RIGHT OVARY: Assessment not requested LEFT OVARY: Assessment not requested FREE FLUID: None. OTHER FINDINGS: Breech presentation. Per these images head and shoulders appear somewhat compressed between the anterior placenta and the wall of the uterine fundus. Some clear diffuse an freely move for from this position. Most of the N fluid appears in the lower uterine segment away from the head. Clinical gestational age is 18 weeks 6 days. IMPRESSION: Limited exam. Single living intrauterine gestation with cardiac activity with a clinical gestational age of 18 weeks 6 days. Estimated date of delivery 12/30/2018. And some distal upper limb motion. Less head and shoulder movement appreciated. - Please see above discussion. . Follow-up recommended Concordant results (preliminary interpretation) provided by [facility].
[2018-08-05] MEDS: Insulin Lispro Mix 75/25 100 units/ml (HumaLog) 10ml SC SCH ×2 (09:07→21:29)
[2018-08-05] MEDS: Lidocaine 5% Patch TD SCH (09:08)
[2018-08-05] MEDS: Potassium Chloride 20 mEq ER Tab PO SCH ×2 (13:27→17:47)
--- NOTE | 2018-08-05 14:37 | CP.PCM.PN ---
Subjective - Date & Time of Evaluation Date of Evaluation: 08/05/18 Time of Evaluation: 11:30 - Subjective Subjective: General Surgery Pt seen and examined. Afebrile. Pain today makes moving difficult. No new complaints. Less odor. Objective - Vital Signs/Intake and Output Vital Signs (last 24 hours): Temp Pulse Resp BP Pulse Ox 98.4 F 85 18 129/70 95 08/05/18 08:00 08/05/18 08:00 08/05/18 08:00 08/05/18 08:00 08/05/18 08:00 - Medications Medications: Current Medications Acetaminophen (Tylenol 325mg Tab) 650 mg PO Q6 PRN PRN Reason: Fever >100.4 F Last Admin: 07/30/18 20:17 Dose: 650 mg Acetaminophen (Tylenol 325mg Tab) 650 mg PO Q4 [facility] Last Admin: 08/05/18 13:27 Dose: 650 mg Dextrose (Dextrose 50% Inj) 0 ml IV STAT PRN; Protocol PRN Reason: Hypoglycemia Protocol Dextrose (Glutose 15) 0 gm PO ONCE PRN; Protocol PRN Reason: Hypoglycemia Protocol Docusate Sodium (Colace) 100 mg PO BID [facility] Last Admin: 08/05/18 09:06 Dose: Not Given Enoxaparin Sodium (Lovenox) 40 mg SC Q12 [facility] PRN Reason: Protocol Last Admin: 08/03/18 21:37 Dose: 40 mg Glucagon (Glucagen Diagnostic Kit) 0 mg IM STAT PRN; Protocol PRN Reason: Hypoglycemia Protocol Hydromorphone HCl (Dilaudid) 1 mg IVP Q3H PRN PRN Reason: Pain, severe (8-10) Last Admin: 08/05/18 13:26 Dose: 1 mg Ceftriaxone Sodium 2 gm/ (Sodium Chloride) 100 mls @ 100 mls/hr IVPB DAILY [facility] PRN Reason: Protocol Last Admin: 08/05/18 09:05 Dose: 100 mls/hr Lactated Ringer's (Lactated Ringer's) 1,000 mls @ 80 mls/hr IV .[id number] [facility] Last Admin: 08/04/18 09:03 Dose: 80 mls/hr Lactated Ringer's (Lactated Ringer's) 1,000 mls @ 125 mls/hr IV .Q8H [facility] Last Admin: 08/05/18 04:07 Dose: 125 mls/hr Clindamycin Phosphate 600 mg/ (Sodium Chloride) 54 mls @ 54 mls/hr IVPB Q8 [facility] PRN Reason: Protocol Last Admin: 08/05/18 09:06 Dose: 54 mls/hr Insulin Detemir (Levemir) 15 units SC HS [facility] Last Admin: 08/04/18 21:40 Dose: 15 u Insulin Human Regular (Humulin R) 0 units SC ACHS [facility] PRN Reason: Protocol Last Admin: 08/05/18 13:28 Dose: 2 units Insulin Lispro Protam/Lispro Human (Humalog Mix 75/25) 5 units SC Q12 [facility] Last Admin: 08/05/18 09:07 Dose: 5 units Ketorolac Tromethamine (Toradol) 30 mg IVP Q6 PRN PRN Reason: Pain, Mild (1-3) Last Admin: 08/04/18 19:06 Dose: 30 mg Lidocaine (Lidoderm) 1 ea TD DAILY [facility] Last Admin: 08/05/18 09:08 Dose: 1 ea Oxycodone HCl (Oxycodone Immediate Release Tab) 10 mg PO Q6 PRN PRN Reason: Pain, moderate (4-7) Potassium Chloride (K-Dur 20 Meq Er Tab) 20 meq PO BID [facility] Last Admin: 08/05/18 13:27 Dose: 20 meq - Labs Labs: 08/05/18 05:24 08/04/18 05:00 PT 12.7 Seconds (9.8-13.1) 07/28/18 16:15 INR 1.1 07/28/18 16:15 APTT 28.9 Seconds (25.6-37.1) 07/28/18 16:15 - Constitutional Appears: Non-toxic, No Acute Distress - Head Exam Head Exam: ATRAUMATIC, NORMOCEPHALIC - Eye Exam Eye Exam: EOMI. absent: Scleral icterus - Respiratory Exam Respiratory Exam: NORMAL BREATHING PATTERN - Cardiovascular Exam Cardiovascular Exam: RRR, +S1, +S2 - GI/Abdominal Exam GI & Abdominal Exam: Soft. absent: Distended, Tenderness - Rectal Exam Additional comments: Improved erythema of L gluteus Continued erythema, induration at inferior aspect, TTP, new head appears to be forming. skin necrosis surrounding solis drains x4. area of skin necrosis at L gluteal cleft/fold junction - Neurological Exam Neurological Exam: Alert, Awake, Oriented x3 - Skin Skin Exam: Dry, Warm Assessment and Plan - Assessment and Plan (Free Text) Assessment: 33F POD#1 s/p left gluteal abscess I & D Plan: - Cont pain management - Remove packing today - Dressing changes PRN - Encourage OOB to chair/Amb/IS use D/W Dr. Lele Eduardo PGY4
[2018-08-05] MEDS ORDERED: Hydrogen Peroxide 237 ML SOL TP ONE (15:05)
[2018-08-05] MEDS: Insulin Detemir 100 Units/ml Inj SC SCH (21:30)
[2018-08-06] MEDS: Lactated Ringer's 1,000 ML IV SCH ×2 (02:52→21:07)
[2018-08-06 06:39] LABS: HEMOGLOBIN 9.4 g/dL (12.0-16.0); MEAN CELL VOLUME 87.1 fl (81.0-99.0); MEAN CORPUSCULAR HEMOGLOBIN 30.1 pg (27.0-31.0); MEAN CORPUSCULAR HGB CONC 34.5 g/dL (33.0-37.0); RBC 3.13 Mil/uL (3.80-5.20); RED CELL DISTRIBUTION WIDTH 13.4 % (11.5-14.5); WHITE BLOOD COUNT 13.9 K/uL (4.8-10.8)
[2018-08-06 07:15] LABS: BLOOD UREA NITROGEN 8 mg/dl (7-17); CALCIUM 8.3 mg/dL (8.4-10.2); GFR NON-AFRICAN AMERICAN > 60
[2018-08-06] MEDS: Insulin Lispro Mix 75/25 100 units/ml (HumaLog) 10ml SC SCH ×3 (08:21→22:04)
[2018-08-06] MEDS: Potassium Chloride 20 mEq ER Tab PO SCH ×2 (08:22→17:32)
[2018-08-06] MEDS: Insulin Regular 100 units/ml SC SCH ×4 (08:22→22:25)
[2018-08-06] MEDS: Lidocaine 5% Patch TD SCH (08:23)
--- NOTE | 2018-08-06 09:31 | CP.PCM.PN ---
Subjective - Date & Time of Evaluation Date of Evaluation: 08/06/18 Time of Evaluation: 07:10 - Subjective Subjective: General Surgery Note for Dr. Royal Patient seen and examined at bedside. No acute events overnight. Patient has been afebrile. Pain has improved and patient able to move around. She is getting out of bed and walking. No new complaints. Objective - Vital Signs/Intake and Output Vital Signs (last 24 hours): Temp Pulse Resp BP Pulse Ox 99.0 F 72 20 117/57 L 99 08/06/18 07:58 08/06/18 07:58 08/06/18 07:58 08/06/18 07:58 08/06/18 07:58 - Medications Medications: Current Medications Acetaminophen (Tylenol 325mg Tab) 650 mg PO Q6 PRN PRN Reason: Fever >100.4 F Last Admin: 07/30/18 20:17 Dose: 650 mg Acetaminophen (Tylenol 325mg Tab) 650 mg PO Q4 [facility] Last Admin: 08/06/18 08:29 Dose: 650 mg Dextrose (Dextrose 50% Inj) 0 ml IV STAT PRN; Protocol PRN Reason: Hypoglycemia Protocol Dextrose (Glutose 15) 0 gm PO ONCE PRN; Protocol PRN Reason: Hypoglycemia Protocol Docusate Sodium (Colace) 100 mg PO BID [facility] Last Admin: 08/06/18 08:21 Dose: 100 mg Enoxaparin Sodium (Lovenox) 40 mg SC Q12 [facility] PRN Reason: Protocol Last Admin: 08/03/18 21:37 Dose: 40 mg Glucagon (Glucagen Diagnostic Kit) 0 mg IM STAT PRN; Protocol PRN Reason: Hypoglycemia Protocol Hydromorphone HCl (Dilaudid) 1 mg IVP Q3H PRN PRN Reason: Pain, severe (8-10) Last Admin: 08/06/18 08:16 Dose: 1 mg Ceftriaxone Sodium 2 gm/ (Sodium Chloride) 100 mls @ 100 mls/hr IVPB DAILY [facility] PRN Reason: Protocol Last Admin: 08/05/18 09:05 Dose: 100 mls/hr Lactated Ringer's (Lactated Ringer's) 1,000 mls @ 80 mls/hr IV .[id number] [facility] Last Admin: 08/04/18 09:03 Dose: 80 mls/hr Lactated Ringer's (Lactated Ringer's) 1,000 mls @ 125 mls/hr IV .Q8H [facility] Last Admin: 08/06/18 02:52 Dose: Not Given Clindamycin Phosphate 600 mg/ (Sodium Chloride) 54 mls @ 54 mls/hr IVPB Q8 [facility] PRN Reason: Protocol Last Admin: 08/06/18 00:49 Dose: 54 mls/hr Insulin Detemir (Levemir) 15 units SC HS [facility] Last Admin: 08/05/18 21:30 Dose: 15 u Insulin Human Regular (Humulin R) 0 units SC ACHS [facility] PRN Reason: Protocol Last Admin: 08/06/18 08:22 Dose: Not Given Insulin Lispro Protam/Lispro Human (Humalog Mix 75/25) 5 units SC Q12 [facility] Last Admin: 08/06/18 08:21 Dose: 5 units Ketorolac Tromethamine (Toradol) 30 mg IVP Q6 PRN PRN Reason: Pain, Mild (1-3) Last Admin: 08/05/18 21:28 Dose: 30 mg Lidocaine (Lidoderm) 1 ea TD DAILY [facility] Last Admin: 08/06/18 08:23 Dose: 1 ea Oxycodone HCl (Oxycodone Immediate Release Tab) 10 mg PO Q6 PRN PRN Reason: Pain, moderate (4-7) Potassium Chloride (K-Dur 20 Meq Er Tab) 20 meq PO BID [facility] Last Admin: 08/06/18 08:22 Dose: 20 meq - Labs Labs: 08/06/18 05:55 08/06/18 05:55 PT 12.7 Seconds (9.8-13.1) 07/28/18 16:15 INR 1.1 07/28/18 16:15 APTT 28.9 Seconds (25.6-37.1) 07/28/18 16:15 - Additional Findings Additional findings: - Constitutional Appears: Non-toxic, No Acute Distress - Head Exam Head Exam: ATRAUMATIC, NORMOCEPHALIC - Eye Exam Eye Exam: EOMI. absent: Scleral icterus - Respiratory Exam Respiratory Exam: NORMAL BREATHING PATTERN - Cardiovascular Exam Cardiovascular Exam: RRR, +S1, +S2 - GI/Abdominal Exam GI & Abdominal Exam: Soft. absent: Distended, Tenderness - Rectal Exam Additional comments: Improved erythema of L gluteus, fibrinous exudate in wound beds, TTP has improved, solis drains still in place, dressing changed - Neurological Exam Neurological Exam: Alert, Awake, Oriented x3 - Skin Skin Exam: Dry, Warm Assessment and Plan - Assessment and Plan (Free Text) Assessment: 33F POD#2 s/p left gluteal abscess I & D Plan: -Continue pain management -Dressing changes PRN -Encourage OOB to chair/Ambulation/IS use -Continue IV abx -Further recommendations as per Dr. Lele Munroe PGY2
[2018-08-06] MEDS ORDERED: Hydrogen Peroxide 237 ML SOL TP ONE (09:37)
[2018-08-06] MEDS: cefTRIAXone 2 GM in Sodium Chloride 0.9% 100 ML IVPB SCH (09:52)
[2018-08-06] MEDS ORDERED: Hydrogen Peroxide 3% Soln (480ml) TP ONE (10:08)
[2018-08-06] MEDS: Insulin Detemir 100 Units/ml Inj SC SCH (22:18)
[2018-08-07 06:37] LABS: HEMOGLOBIN 9.9 g/dL (12.0-16.0); MEAN CELL VOLUME 88.4 fl (81.0-99.0); MEAN CORPUSCULAR HEMOGLOBIN 29.3 pg (27.0-31.0); MEAN CORPUSCULAR HGB CONC 33.2 g/dL (33.0-37.0); RBC 3.38 Mil/uL (3.80-5.20); RED CELL DISTRIBUTION WIDTH 13.5 % (11.5-14.5); WHITE BLOOD COUNT 13.8 K/uL (4.8-10.8)
[2018-08-07 06:47] LABS: BLOOD UREA NITROGEN 7 mg/dl (7-17); CALCIUM 8.5 mg/dL (8.4-10.2); GFR NON-AFRICAN AMERICAN > 60
[2018-08-07] MEDS: Insulin Lispro Mix 75/25 100 units/ml (HumaLog) 10ml SC SCH ×2 (07:00→18:16)
[2018-08-07] MEDS: Insulin Regular 100 units/ml SC SCH ×4 (07:30→22:44)
--- NOTE | 2018-08-07 08:39 | CP.PCM.PN ---
Subjective - Date & Time of Evaluation Date of Evaluation: 08/07/18 Time of Evaluation: 07:05 - Subjective Subjective: General Surgery Note for Dr. Royal Patient seen and examined at bedside. No acute events overnight. Patient states pain continues to improve. Patient is OOB, ambulating and using IS. She is tolerating diet. She admits to flatus and BMS. Patient denies any other complaints. Objective - Vital Signs/Intake and Output Vital Signs (last 24 hours): Temp Pulse Resp BP Pulse Ox 98.0 F 78 20 129/81 96 08/07/18 07:30 08/07/18 07:30 08/07/18 07:30 08/07/18 07:30 08/07/18 07:30 - Medications Medications: Current Medications Acetaminophen (Tylenol 325mg Tab) 650 mg PO Q6 PRN PRN Reason: Fever >100.4 F Last Admin: 07/30/18 20:17 Dose: 650 mg Dextrose (Dextrose 50% Inj) 0 ml IV STAT PRN; Protocol PRN Reason: Hypoglycemia Protocol Dextrose (Glutose 15) 0 gm PO ONCE PRN; Protocol PRN Reason: Hypoglycemia Protocol Docusate Sodium (Colace) 100 mg PO BID [facility] Last Admin: 08/06/18 17:32 Dose: 100 mg Enoxaparin Sodium (Lovenox) 40 mg SC Q12 [facility] PRN Reason: Protocol Last Admin: 08/03/18 21:37 Dose: 40 mg Glucagon (Glucagen Diagnostic Kit) 0 mg IM STAT PRN; Protocol PRN Reason: Hypoglycemia Protocol Hydromorphone HCl (Dilaudid) 1 mg IVP Q3H PRN PRN Reason: Pain, severe (8-10) Last Admin: 08/07/18 06:11 Dose: 1 mg Ceftriaxone Sodium 2 gm/ (Sodium Chloride) 100 mls @ 100 mls/hr IVPB DAILY [facility] PRN Reason: Protocol Last Admin: 08/06/18 09:52 Dose: 100 mls/hr Lactated Ringer's (Lactated Ringer's) 1,000 mls @ 80 mls/hr IV .[id number] [facility] Last Admin: 08/06/18 21:07 Dose: 80 mls/hr Clindamycin Phosphate 600 mg/ (Sodium Chloride) 54 mls @ 54 mls/hr IVPB Q8 [facility] PRN Reason: Protocol Last Admin: 08/07/18 00:02 Dose: 54 mls/hr Insulin Detemir (Levemir) 15 units SC HS [facility] Last Admin: 08/06/18 22:18 Dose: 15 u Insulin Human Regular (Humulin R) 0 units SC ACHS [facility] PRN Reason: Protocol Last Admin: 08/07/18 07:30 Dose: Not Given Insulin Lispro Protam/Lispro Human (Humalog Mix 75/25) 7 units SC Q12@0700, 1900 [facility] Last Admin: 08/07/18 07:00 Dose: 7 units Lidocaine (Lidoderm) 1 ea TD DAILY [facility] Last Admin: 08/06/18 08:23 Dose: 1 ea Oxycodone HCl (Oxycodone Immediate Release Tab) 10 mg PO Q6 PRN PRN Reason: Pain, moderate (4-7) Potassium Chloride (K-Dur 20 Meq Er Tab) 20 meq PO BID [facility] Last Admin: 08/06/18 17:32 Dose: Not Given - Labs Labs: 08/07/18 06:15 08/07/18 06:15 PT 12.7 Seconds (9.8-13.1) 07/28/18 16:15 INR 1.1 07/28/18 16:15 APTT 28.9 Seconds (25.6-37.1) 07/28/18 16:15 - Additional Findings Additional findings: - Constitutional Appears: Non-toxic, No Acute Distress - Head Exam Head Exam: ATRAUMATIC, NORMOCEPHALIC - Eye Exam Eye Exam: EOMI. absent: Scleral icterus - Respiratory Exam Respiratory Exam: NORMAL BREATHING PATTERN - Cardiovascular Exam Cardiovascular Exam: RRR, +S1, +S2 - GI/Abdominal Exam GI & Abdominal Exam: Soft. absent: Distended, Tenderness - Rectal Exam Additional comments: Improved erythema of L gluteus, fibrinous exudate in wound beds, TTP has improved, solis drains still in place, dressing changed - Neurological Exam Neurological Exam: Alert, Awake, Oriented x3 - Skin Skin Exam: Dry, Warm Assessment and Plan - Assessment and Plan (Free Text) Assessment: 33F s/p left gluteal abscess I & D POD#3 Plan: -Pain management -Dressing changes PRN -Daily irrigation with peroxide/saline -Encourage OOB to chair/Ambulation/IS -Continue IV abx -Further recommendations as per Dr. Lele Munroe PGY2
[2018-08-07] MEDS: Lidocaine 5% Patch TD SCH (08:56)
[2018-08-07] MEDS: Potassium Chloride 20 mEq ER Tab PO SCH ×2 (08:58→16:26)
[2018-08-07] MEDS: cefTRIAXone 2 GM in Sodium Chloride 0.9% 100 ML IVPB SCH (08:58)
[2018-08-07] MEDS: Lactated Ringer's 1,000 ML IV SCH ×2 (09:17→22:48)
--- NOTE | 2018-08-07 14:39 | US ---
Date of service: 08/06/2018 PROCEDURE: SOFT TISSUE ULTRASOUND HISTORY: L gleuteal abscess COMPARISON: Soft tissue ultrasound 07/29/2018. TECHNIQUE: Ultrasound of the left buttocks is been performed utilizing high-frequency linear transducer including color Doppler technique. FINDINGS: Examination targets the left buttocks area of suspected abscess and known cellulitis. The previous hypoechoic structure in the deep subcutaneous buttocks now measures 3.1 x 0.9 cm compared to 3.9 x 1.8 cm, slightly smaller in the interval. Limited hyperemia is seen in the periphery ended is suggestive of small abscess collection. Extensive thickening of the subcutaneous fat is appreciated with fluid in the interstices suggests of cellulitis. IMPRESSION: Left buttocks cellulitis with small deep subcutaneous abscess diminished in size now measuring 3.1 x 0.9 cm compared to 3.9 x 1.8 cm on ultrasonography performed 07/29/2018. Clinically correlate further.
[2018-08-07] MEDS: Clindamycin 600 MG in Sodium Chloride 0.9% 100 ML IVPB SCH (16:25)
[2018-08-07] MEDS: Insulin Detemir 100 Units/ml Inj SC SCH (22:45)
[2018-08-08] MEDS: Clindamycin 600 MG in Sodium Chloride 0.9% 100 ML IVPB SCH ×3 (00:19→17:08)
[2018-08-08] MEDS: Insulin Lispro Mix 75/25 100 units/ml (HumaLog) 10ml SC SCH ×2 (06:20→19:05)
[2018-08-08] MEDS: Insulin Regular 100 units/ml SC SCH ×4 (07:30→22:10)
[2018-08-08 08:07] LABS: HEMOGLOBIN 9.7 g/dL (12.0-16.0); MEAN CELL VOLUME 88.4 fl (81.0-99.0); MEAN CORPUSCULAR HEMOGLOBIN 29.9 pg (27.0-31.0); MEAN CORPUSCULAR HGB CONC 33.8 g/dL (33.0-37.0); RBC 3.24 Mil/uL (3.80-5.20); RED CELL DISTRIBUTION WIDTH 13.8 % (11.5-14.5); WHITE BLOOD COUNT 12.8 K/uL (4.8-10.8)
[2018-08-08] MEDS: cefTRIAXone 2 GM in Sodium Chloride 0.9% 100 ML IVPB SCH (08:14)
[2018-08-08] MEDS: Lidocaine 5% Patch TD SCH (08:18)
--- NOTE | 2018-08-08 08:19 | CP.PCM.PN ---
Subjective - Date & Time of Evaluation Date of Evaluation: 08/08/18 Time of Evaluation: 13:38 - Subjective Subjective: General Surgery Note for Dr. Royal Patient seen and examined at bedside. No acute events overnight. Drains were removed today. 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 She admits to flatus and BMs. Patient denies any other complaints. Objective - Vital Signs/Intake and Output Vital Signs (last 24 hours): Temp Pulse Resp BP Pulse Ox 97.8 F 83 19 129/89 98 08/08/18 00:00 08/08/18 00:00 08/08/18 00:00 08/08/18 00:00 08/08/18 00:00 - Medications Medications: Current Medications Acetaminophen (Tylenol 325mg Tab) 650 mg PO Q6 PRN PRN Reason: Fever >100.4 F Last Admin: 07/30/18 20:17 Dose: 650 mg Dextrose (Dextrose 50% Inj) 0 ml IV STAT PRN; Protocol PRN Reason: Hypoglycemia Protocol Dextrose (Glutose 15) 0 gm PO ONCE PRN; Protocol PRN Reason: Hypoglycemia Protocol Docusate Sodium (Colace) 100 mg PO BID [facility] Last Admin: 08/07/18 16:26 Dose: 100 mg Enoxaparin Sodium (Lovenox) 40 mg SC Q12 [facility] PRN Reason: Protocol Last Admin: 08/03/18 21:37 Dose: 40 mg Glucagon (Glucagen Diagnostic Kit) 0 mg IM STAT PRN; Protocol PRN Reason: Hypoglycemia Protocol Hydromorphone HCl (Dilaudid) 1 mg IVP Q3H PRN PRN Reason: Pain, severe (8-10) Last Admin: 08/08/18 06:15 Dose: 1 mg Ceftriaxone Sodium 2 gm/ (Sodium Chloride) 100 mls @ 100 mls/hr IVPB DAILY [facility] PRN Reason: Protocol Last Admin: 08/07/18 08:58 Dose: 100 mls/hr Lactated Ringer's (Lactated Ringer's) 1,000 mls @ 80 mls/hr IV .[id number] [facility] Last Admin: 08/07/18 22:48 Dose: 80 mls/hr Clindamycin Phosphate 600 mg/ (Sodium Chloride) 104 mls @ 104 mls/hr IVPB Q8 [facility] PRN Reason: Protocol Last Admin: 08/08/18 00:19 Dose: 104 mls/hr Insulin Detemir (Levemir) 15 units SC HS [facility] Last Admin: 08/07/18 22:45 Dose: 15 u Insulin Human Regular (Humulin R) 0 units SC ACHS [facility] PRN Reason: Protocol Last Admin: 08/08/18 07:30 Dose: Not Given Insulin Lispro Protam/Lispro Human (Humalog Mix 75/25) 7 units SC Q12@0700, 1900 [facility] Last Admin: 08/08/18 06:20 Dose: 7 units Lidocaine (Lidoderm) 1 ea TD DAILY [facility] Last Admin: 08/07/18 08:56 Dose: 1 ea Oxycodone HCl (Oxycodone Immediate Release Tab) 10 mg PO Q6 PRN PRN Reason: Pain, moderate (4-7) Potassium Chloride (K-Dur 20 Meq Er Tab) 20 meq PO BID [facility] Last Admin: 08/07/18 16:26 Dose: 20 meq - Labs Labs: 08/07/18 06:15 08/07/18 06:15 PT 12.7 Seconds (9.8-13.1) 07/28/18 16:15 INR 1.1 07/28/18 16:15 APTT 28.9 Seconds (25.6-37.1) 07/28/18 16:15 - Additional Findings Additional findings: - Constitutional Appears: Non-toxic, No Acute Distress - Head Exam Head Exam: ATRAUMATIC, NORMOCEPHALIC - Eye Exam Eye Exam: EOMI. absent: Scleral icterus - Respiratory Exam Respiratory Exam: NORMAL BREATHING PATTERN - Cardiovascular Exam Cardiovascular Exam: RRR, +S1, +S2 - GI/Abdominal Exam GI & Abdominal Exam: Soft. absent: Distended, Tenderness - Rectal Exam Additional comments: L gluteus: erythema continues to improve, fibrinous exudate in wound beds, drains removed, dressing changed - Neurological Exam Neurological Exam: Alert, Awake, Oriented x3 - Skin Skin Exam: Dry, Warm Assessment and Plan - Assessment and Plan (Free Text) Assessment: 33F s/p left gluteal abscess I & D POD#4 Plan: -Pain management, switch to oral medications -Dressing changes PRN -Daily irrigation with peroxide/saline -Wound care following -Encourage OOB to chair/Ambulation/IS -Continue IV abx -Further recommendations as per Dr. Lele Munroe PGY2
[2018-08-08] MEDS: Potassium Chloride 20 mEq ER Tab PO SCH ×2 (08:20→17:01)
[2018-08-08] MEDS: Prenatal Multivit/Folic Acid/Iron Tab PO SCH (13:18)
[2018-08-08] MEDS ORDERED: Oxycodone/Acetaminophen 5/325 mg Tab PO PRN (13:24)
[2018-08-08] MEDS: Oxycodone/Acetaminophen 5/325 mg Tab PO PRN ×2 (16:04→22:02)
[2018-08-08] MEDS: Insulin Detemir 100 Units/ml Inj SC SCH (22:06)
[2018-08-08] MEDS: Lactated Ringer's 1,000 ML IV SCH (23:00)
[2018-08-09] MEDS: Clindamycin 600 MG in Sodium Chloride 0.9% 100 ML IVPB SCH ×3 (00:49→16:24)
[2018-08-09] MEDS: Oxycodone/Acetaminophen 5/325 mg Tab PO PRN ×5 (06:06→22:18)
[2018-08-09] MEDS: Insulin Lispro Mix 75/25 100 units/ml (HumaLog) 10ml SC SCH ×2 (06:08→20:47)
[2018-08-09] MEDS: Prenatal Multivit/Folic Acid/Iron Tab PO SCH (08:11)
[2018-08-09] MEDS: Lidocaine 5% Patch TD SCH (08:11)
[2018-08-09] MEDS: Potassium Chloride 20 mEq ER Tab PO SCH ×2 (08:12→16:28)
[2018-08-09] MEDS: Insulin Regular 100 units/ml SC SCH ×4 (08:12→22:26)
--- NOTE | 2018-08-09 08:21 | CP.PCM.PN ---
Subjective - Date & Time of Evaluation Date of Evaluation: 08/09/18 Time of Evaluation: 07:25 - Subjective Subjective: General Surgery Note for Dr. Royal Patient seen and examined at bedside. Overnight, patient was complaining about her pain medications being switched. Patient stated that she was under the impression that she was suppose to get IV dilaudid still and percocet was not adequately controlling pain. Patient was visited earlier in the evening after receiving percocet and at that time patient was sleeping comfortably. A thorough discussion about the plan and goals of care were discussed with the patient. Patient was informed that it is imperative she is transitioned to oral pain medications not only to prepare her for eventual discharge but to also wean her off pain meds completely since she is . Patient was educated about the fact that even though there are no teratogenic effects listed for these pain medications, there are increased risks of respiratory depression and opiate withdrawal syndrome in the baby at with prolonged use. She is tolerating diet. She admits to flatus and BMs. Patient denies any other complaints. Objective - Vital Signs/Intake and Output Vital Signs (last 24 hours): Temp Pulse Resp BP Pulse Ox 98.3 F 70 20 109/72 99 08/09/18 08:13 08/09/18 08:13 08/09/18 08:13 08/09/18 08:13 08/09/18 08:13 - Medications Medications: Current Medications Acetaminophen (Tylenol 325mg Tab) 650 mg PO Q6 PRN PRN Reason: Fever >100.4 F Last Admin: 07/30/18 20:17 Dose: 650 mg Dextrose (Dextrose 50% Inj) 0 ml IV STAT PRN; Protocol PRN Reason: Hypoglycemia Protocol Dextrose (Glutose 15) 0 gm PO ONCE PRN; Protocol PRN Reason: Hypoglycemia Protocol Docusate Sodium (Colace) 100 mg PO BID [facility] Last Admin: 08/09/18 08:12 Dose: 100 mg Enoxaparin Sodium (Lovenox) 40 mg SC Q12 [facility] PRN Reason: Protocol Last Admin: 08/03/18 21:37 Dose: 40 mg Glucagon (Glucagen Diagnostic Kit) 0 mg IM STAT PRN; Protocol PRN Reason: Hypoglycemia Protocol Lactated Ringer's (Lactated Ringer's) 1,000 mls @ 80 mls/hr IV .[id number] [facility] Last Admin: 08/08/18 23:00 Dose: Not Given Clindamycin Phosphate 600 mg/ (Sodium Chloride) 104 mls @ 104 mls/hr IVPB Q8 [facility] PRN Reason: Protocol Last Admin: 08/09/18 08:13 Dose: 104 mls/hr Insulin Detemir (Levemir) 15 units SC HS [facility] Last Admin: 08/08/18 22:06 Dose: 15 u Insulin Human Regular (Humulin R) 0 units SC ACHS [facility] PRN Reason: Protocol Last Admin: 08/09/18 08:12 Dose: Not Given Insulin Lispro Protam/Lispro Human (Humalog Mix 75/25) 7 units SC Q12@0700, 1900 [facility] Last Admin: 08/09/18 06:08 Dose: 7 units Lidocaine (Lidoderm) 1 ea TD DAILY [facility] Last Admin: 08/09/18 08:11 Dose: 1 ea Oxycodone/Acetaminophen (Percocet 5/325 Mg Tab) 2 tab PO Q4 PRN PRN Reason: Pain, moderate (4-7) Stop: 08/11/18 13:30 Last Admin: 08/09/18 06:06 Dose: 2 tab Potassium Chloride (K-Dur 20 Meq Er Tab) 20 meq PO BID [facility] Last Admin: 08/09/18 08:12 Dose: 20 meq Multivit/Folic Acid/Iron () 1 tab PO DAILY [facility] Last Admin: 08/09/18 08:11 Dose: 1 tab - Labs Labs: 08/08/18 05:30 08/07/18 06:15 PT 12.7 Seconds (9.8-13.1) 07/28/18 16:15 INR 1.1 07/28/18 16:15 APTT 28.9 Seconds (25.6-37.1) 07/28/18 16:15 - Additional Findings Additional findings: - Constitutional Appears: Non-toxic, No Acute Distress - Head Exam Head Exam: ATRAUMATIC, NORMOCEPHALIC - Eye Exam Eye Exam: EOMI. absent: Scleral icterus - Respiratory Exam Respiratory Exam: NORMAL BREATHING PATTERN - Cardiovascular Exam Cardiovascular Exam: RRR, +S1, +S2 - GI/Abdominal Exam GI & Abdominal Exam: Soft. absent: Distended, Tenderness - Rectal Exam Additional comments: L gluteus: some erythema present, TTP, fibrinous exudate in wound beds, some purulent drainage from where drain were, dressing changed - Neurological Exam Neurological Exam: Alert, Awake, Oriented x3 - Skin Skin Exam: Dry, Warm Assessment and Plan - Assessment and Plan (Free Text) Assessment: 33F s/p left gluteal abscess I & D POD#5 Plan: -Pain management, switch to oral medications 2 tabs of Percocet Q4H PRN -Dressing changes as needed -Daily irrigation with peroxide/saline -Wound care following -Encourage OOB to chair/Ambulation/IS -Continue IV abx -Will give topical antifungal cream for suspected yeast infection -Further recommendations as per Dr. Lele Munroe PGY2
[2018-08-09 09:27] LABS: BASO % 0.1 % (0.0-2.0); EOS # 0.1 K/uL (0.0-0.7); EOS % 0.7 % (0.0-4.0); HEMOGLOBIN 10.2 g/dL (12.0-16.0); LYMPH # 1.7 K/uL (1.0-4.3); LYMPH % 13.4 % (20.0-40.0); MEAN CELL VOLUME 88.5 fl (81.0-99.0); MEAN CORPUSCULAR HEMOGLOBIN 30.3 pg (27.0-31.0); MEAN CORPUSCULAR HGB CONC 34.3 g/dL (33.0-37.0); MEAN PLATELET VOLUME 7.8 fl (7.2-11.7); MONO # 0.7 K/uL (0.0-0.8); MONO % 5.4 % (0.0-10.0); NEUT # 10.3 K/uL (1.8-7.0); NEUT % 80.4 % (50.0-75.0); RBC 3.37 Mil/uL (3.80-5.20); RED CELL DISTRIBUTION WIDTH 13.6 % (11.5-14.5); WHITE BLOOD COUNT 12.8 K/uL (4.8-10.8)
[2018-08-09 09:41] LABS: ALB/GLOB RATIO 0.9 (1.0-2.1); ALBUMIN 2.7 g/dL (3.5-5.0); ALT/SGPT 39 U/L (9-52); AST/SGOT 47 U/L (14-36); BLOOD UREA NITROGEN 5 mg/dl (7-17); CALCIUM 9.3 mg/dL (8.4-10.2); GFR NON-AFRICAN AMERICAN > 60
--- NOTE | 2018-08-09 15:31 | CP.PCM.PN ---
Subjective - Date & Time of Evaluation Date of Evaluation: 08/09/18 Time of Evaluation: 10:00 - Subjective Subjective: patient seen and examined at bedside today. patient being titrated off opioids. patient states pain is still present. complaints of yeast infection. no other complaints offered at this time. no acute events overnight. no fever/chills. Objective - Vital Signs/Intake and Output Vital Signs (last 24 hours): Temp Pulse Resp BP Pulse Ox 98.3 F 70 20 109/72 99 08/09/18 08:13 08/09/18 08:13 08/09/18 08:13 08/09/18 08:13 08/09/18 08:13 - Medications Medications: Current Medications Acetaminophen (Tylenol 325mg Tab) 650 mg PO Q6 PRN PRN Reason: Fever >100.4 F Last Admin: 07/30/18 20:17 Dose: 650 mg Clotrimazole (Lotrimin 1% Vaginal) 1 applic VG DAILY [facility] Last Admin: 08/09/18 10:06 Dose: 1 applic Dextrose (Dextrose 50% Inj) 0 ml IV STAT PRN; Protocol PRN Reason: Hypoglycemia Protocol Dextrose (Glutose 15) 0 gm PO ONCE PRN; Protocol PRN Reason: Hypoglycemia Protocol Docusate Sodium (Colace) 100 mg PO BID [facility] Last Admin: 08/09/18 08:12 Dose: 100 mg Enoxaparin Sodium (Lovenox) 40 mg SC Q12 [facility] PRN Reason: Protocol Last Admin: 08/03/18 21:37 Dose: 40 mg Glucagon (Glucagen Diagnostic Kit) 0 mg IM STAT PRN; Protocol PRN Reason: Hypoglycemia Protocol Lactated Ringer's (Lactated Ringer's) 1,000 mls @ 80 mls/hr IV .[id number] [facility] Last Admin: 08/08/18 23:00 Dose: Not Given Clindamycin Phosphate 600 mg/ (Sodium Chloride) 104 mls @ 104 mls/hr IVPB Q8 [facility] PRN Reason: Protocol Last Admin: 08/09/18 08:13 Dose: 104 mls/hr Insulin Detemir (Levemir) 15 units SC HS [facility] Last Admin: 08/08/18 22:06 Dose: 15 u Insulin Human Regular (Humulin R) 0 units SC ACHS [facility] PRN Reason: Protocol Last Admin: 09/09/18 12:14 Dose: Not Given Insulin Lispro Protam/Lispro Human (Humalog Mix 75/25) 7 units SC Q12@0700, 1900 [facility] Last Admin: 08/09/18 06:08 Dose: 7 units Lidocaine (Lidoderm) 1 ea TD DAILY [facility] Last Admin: 08/09/18 08:11 Dose: 1 ea Oxycodone/Acetaminophen (Percocet 5/325 Mg Tab) 2 tab PO Q4 PRN PRN Reason: Pain, moderate (4-7) Stop: 08/11/18 13:30 Last Admin: 08/09/18 13:58 Dose: 2 tab Potassium Chloride (K-Dur 20 Meq Er Tab) 20 meq PO BID [facility] Last Admin: 08/09/18 08:12 Dose: 20 meq Multivit/Folic Acid/Iron () 1 tab PO DAILY [facility] Last Admin: 08/09/18 08:11 Dose: 1 tab - Labs Labs: 08/09/18 09:10 08/09/18 09:10 PT 12.7 Seconds (9.8-13.1) 07/28/18 16:15 INR 1.1 07/28/18 16:15 APTT 28.9 Seconds (25.6-37.1) 07/28/18 16:15 - Constitutional Appears: Well, No Acute Distress - Head Exam Head Exam: ATRAUMATIC, NORMAL INSPECTION, NORMOCEPHALIC - Eye Exam Eye Exam: Normal appearance - Neck Exam Neck Exam: Normal Inspection - Respiratory Exam Respiratory Exam: Clear to Ausculation Bilateral, NORMAL BREATHING PATTERN - Cardiovascular Exam Cardiovascular Exam: REGULAR RHYTHM, +S1, +S2. absent: Murmur - Extremities Exam Extremities Exam: Normal Inspection - Neurological Exam Neurological Exam: Alert, Awake, Oriented x3 - Psychiatric Exam Psychiatric exam: Normal Affect, Normal Mood - Skin Skin Exam: Dry, Intact, Normal Color, Warm Assessment and Plan - Assessment and Plan (Free Text) Assessment: 33 yo female s/p left gluteal abscess I&D. c/w IV antibiotics daily wound cleaning c/w pain management as per surgical team topical antifungal cream labs in am
--- NOTE | 2018-08-09 22:18 | CP.PCM.PN ---
Subjective - Date & Time of Evaluation Date of Evaluation: 08/05/18 Time of Evaluation: 10:00 - Subjective Subjective: Patient continues to have elevated WBC Noted foul odor discharge by incision area. Has no fever. Objective - Vital Signs/Intake and Output Vital Signs (last 24 hours): Temp Pulse Resp BP Pulse Ox 98.2 F 73 18 142/80 96 08/09/18 16:11 08/09/18 16:11 08/09/18 16:11 08/09/18 16:11 08/09/18 16:11 - Medications Medications: Current Medications Acetaminophen (Tylenol 325mg Tab) 650 mg PO Q6 PRN PRN Reason: Fever >100.4 F Last Admin: 07/30/18 20:17 Dose: 650 mg Clotrimazole (Lotrimin 1% Vaginal) 1 applic VG DAILY [facility] Last Admin: 08/09/18 10:06 Dose: 1 applic Dextrose (Dextrose 50% Inj) 0 ml IV STAT PRN; Protocol PRN Reason: Hypoglycemia Protocol Dextrose (Glutose 15) 0 gm PO ONCE PRN; Protocol PRN Reason: Hypoglycemia Protocol Docusate Sodium (Colace) 100 mg PO BID [facility] Last Admin: 08/09/18 16:24 Dose: 100 mg Enoxaparin Sodium (Lovenox) 40 mg SC Q12 [facility] PRN Reason: Protocol Last Admin: 08/03/18 21:37 Dose: 40 mg Glucagon (Glucagen Diagnostic Kit) 0 mg IM STAT PRN; Protocol PRN Reason: Hypoglycemia Protocol Lactated Ringer's (Lactated Ringer's) 1,000 mls @ 80 mls/hr IV .[id number] [facility] Last Admin: 08/08/18 23:00 Dose: Not Given Clindamycin Phosphate 600 mg/ (Sodium Chloride) 104 mls @ 104 mls/hr IVPB Q8 [facility] PRN Reason: Protocol Last Admin: 08/09/18 16:24 Dose: 104 mls/hr Insulin Detemir (Levemir) 15 units SC HS [facility] Last Admin: 08/08/18 22:06 Dose: 15 u Insulin Human Regular (Humulin R) 0 units SC ACHS [facility] PRN Reason: Protocol Last Admin: 08/09/18 16:28 Dose: 1 units Insulin Lispro Protam/Lispro Human (Humalog Mix 75/25) 7 units SC Q12@0700, 1900 [facility] Last Admin: 08/09/18 20:47 Dose: 7 units Lidocaine (Lidoderm) 1 ea TD DAILY [facility] Last Admin: 08/09/18 08:11 Dose: 1 ea Oxycodone/Acetaminophen (Percocet 5/325 Mg Tab) 2 tab PO Q4 PRN PRN Reason: Pain, moderate (4-7) Stop: 08/11/18 13:30 Last Admin: 08/09/18 17:46 Dose: 2 tab Potassium Chloride (K-Dur 20 Meq Er Tab) 20 meq PO BID [facility] Last Admin: 08/09/18 16:28 Dose: 20 meq Multivit/Folic Acid/Iron () 1 tab PO DAILY [facility] Last Admin: 08/09/18 08:11 Dose: 1 tab - Labs Labs: 08/09/18 09:10 08/09/18 09:10 PT 12.7 Seconds (9.8-13.1) 07/28/18 16:15 INR 1.1 07/28/18 16:15 APTT 28.9 Seconds (25.6-37.1) 07/28/18 16:15 - Head Exam Head Exam: NORMAL INSPECTION - ENT Exam ENT Exam: Mucous Membranes Moist - Respiratory Exam Respiratory Exam: Clear to Ausculation Bilateral - Cardiovascular Exam Cardiovascular Exam: REGULAR RHYTHM - GI/Abdominal Exam GI & Abdominal Exam: Normal Bowel Sounds - Skin Additional comments: foul odor discharge on incision area decreased redness around wound area. Assessment and Plan (1) Cellulitis and abscess of buttock Status: Acute (2) Diabetes mellitus type 2 in obese Status: Resolved (3) Status: Acute (4) Morbid (severe) obesity due to excess calories Status: Acute - Assessment and Plan (Free Text) Plan: Cont meds Cont IV antibiotics scheduled for another I and D cont iv antibiotics daily wound washing.
[2018-08-09] MEDS: Insulin Detemir 100 Units/ml Inj SC SCH (22:20)
--- NOTE | 2018-08-09 22:22 | CP.PCM.PN ---
Subjective - Date & Time of Evaluation Date of Evaluation: 08/06/18 Time of Evaluation: 11:00 - Subjective Subjective: Noted decrease in WBC from 16 to 13 Has no fever Still with a lot of pain. Objective - Vital Signs/Intake and Output Vital Signs (last 24 hours): Temp Pulse Resp BP Pulse Ox 98.2 F 73 18 142/80 96 08/09/18 16:11 08/09/18 16:11 08/09/18 16:11 08/09/18 16:11 08/09/18 16:11 - Medications Medications: Current Medications Acetaminophen (Tylenol 325mg Tab) 650 mg PO Q6 PRN PRN Reason: Fever >100.4 F Last Admin: 07/30/18 20:17 Dose: 650 mg Clotrimazole (Lotrimin 1% Vaginal) 1 applic VG DAILY [facility] Last Admin: 08/09/18 10:06 Dose: 1 applic Dextrose (Dextrose 50% Inj) 0 ml IV STAT PRN; Protocol PRN Reason: Hypoglycemia Protocol Dextrose (Glutose 15) 0 gm PO ONCE PRN; Protocol PRN Reason: Hypoglycemia Protocol Docusate Sodium (Colace) 100 mg PO BID [facility] Last Admin: 08/09/18 16:24 Dose: 100 mg Enoxaparin Sodium (Lovenox) 40 mg SC Q12 [facility] PRN Reason: Protocol Last Admin: 08/03/18 21:37 Dose: 40 mg Glucagon (Glucagen Diagnostic Kit) 0 mg IM STAT PRN; Protocol PRN Reason: Hypoglycemia Protocol Lactated Ringer's (Lactated Ringer's) 1,000 mls @ 80 mls/hr IV .[id number] [facility] Last Admin: 08/08/18 23:00 Dose: Not Given Clindamycin Phosphate 600 mg/ (Sodium Chloride) 104 mls @ 104 mls/hr IVPB Q8 [facility] PRN Reason: Protocol Last Admin: 08/09/18 16:24 Dose: 104 mls/hr Insulin Detemir (Levemir) 15 units SC HS [facility] Last Admin: 08/08/18 22:06 Dose: 15 u Insulin Human Regular (Humulin R) 0 units SC ACHS [facility] PRN Reason: Protocol Last Admin: 08/09/18 16:28 Dose: 1 units Insulin Lispro Protam/Lispro Human (Humalog Mix 75/25) 7 units SC Q12@0700, 1900 [facility] Last Admin: 08/09/18 20:47 Dose: 7 units Lidocaine (Lidoderm) 1 ea TD DAILY [facility] Last Admin: 08/09/18 08:11 Dose: 1 ea Oxycodone/Acetaminophen (Percocet 5/325 Mg Tab) 2 tab PO Q4 PRN PRN Reason: Pain, moderate (4-7) Stop: 08/11/18 13:30 Last Admin: 08/09/18 17:46 Dose: 2 tab Potassium Chloride (K-Dur 20 Meq Er Tab) 20 meq PO BID [facility] Last Admin: 08/09/18 16:28 Dose: 20 meq Multivit/Folic Acid/Iron () 1 tab PO DAILY [facility] Last Admin: 08/09/18 08:11 Dose: 1 tab - Labs Labs: 08/09/18 09:10 08/09/18 09:10 PT 12.7 Seconds (9.8-13.1) 07/28/18 16:15 INR 1.1 07/28/18 16:15 APTT 28.9 Seconds (25.6-37.1) 07/28/18 16:15 - Head Exam Head Exam: NORMAL INSPECTION - Eye Exam Eye Exam: Normal appearance - ENT Exam ENT Exam: Mucous Membranes Moist - Respiratory Exam Respiratory Exam: Clear to Ausculation Bilateral - Cardiovascular Exam Cardiovascular Exam: REGULAR RHYTHM - GI/Abdominal Exam GI & Abdominal Exam: Normal Bowel Sounds - Neurological Exam Neurological Exam: Awake Assessment and Plan (1) Cellulitis and abscess of buttock Status: Acute (2) Diabetes mellitus type 2 in obese Status: Resolved (3) Status: Acute (4) Morbid (severe) obesity due to excess calories Status: Acute - Assessment and Plan (Free Text) Plan: Cont meds Cont tx Cont wound care Cont IV antibiotics follow up with OB.
--- NOTE | 2018-08-09 22:26 | CP.PCM.PN ---
Subjective - Date & Time of Evaluation Date of Evaluation: 08/07/18 Time of Evaluation: 11:00 - Subjective Subjective: Patient continues to have discharge but less Noted decrease in WBC, Has no fever, Objective - Vital Signs/Intake and Output Vital Signs (last 24 hours): Temp Pulse Resp BP Pulse Ox 98.2 F 73 18 142/80 96 08/09/18 16:11 08/09/18 16:11 08/09/18 16:11 08/09/18 16:11 08/09/18 16:11 - Medications Medications: Current Medications Acetaminophen (Tylenol 325mg Tab) 650 mg PO Q6 PRN PRN Reason: Fever >100.4 F Last Admin: 07/30/18 20:17 Dose: 650 mg Clotrimazole (Lotrimin 1% Vaginal) 1 applic VG DAILY [facility] Last Admin: 08/09/18 10:06 Dose: 1 applic Dextrose (Dextrose 50% Inj) 0 ml IV STAT PRN; Protocol PRN Reason: Hypoglycemia Protocol Dextrose (Glutose 15) 0 gm PO ONCE PRN; Protocol PRN Reason: Hypoglycemia Protocol Docusate Sodium (Colace) 100 mg PO BID [facility] Last Admin: 08/09/18 16:24 Dose: 100 mg Enoxaparin Sodium (Lovenox) 40 mg SC Q12 [facility] PRN Reason: Protocol Last Admin: 08/03/18 21:37 Dose: 40 mg Glucagon (Glucagen Diagnostic Kit) 0 mg IM STAT PRN; Protocol PRN Reason: Hypoglycemia Protocol Lactated Ringer's (Lactated Ringer's) 1,000 mls @ 80 mls/hr IV .[id number] [facility] Last Admin: 08/08/18 23:00 Dose: Not Given Clindamycin Phosphate 600 mg/ (Sodium Chloride) 104 mls @ 104 mls/hr IVPB Q8 [facility] PRN Reason: Protocol Last Admin: 08/09/18 16:24 Dose: 104 mls/hr Insulin Detemir (Levemir) 15 units SC HS [facility] Last Admin: 08/09/18 22:20 Dose: 15 u Insulin Human Regular (Humulin R) 0 units SC ACHS [facility] PRN Reason: Protocol Last Admin: 08/09/18 16:28 Dose: 1 units Insulin Lispro Protam/Lispro Human (Humalog Mix 75/25) 7 units SC Q12@0700, 1900 [facility] Last Admin: 08/09/18 20:47 Dose: 7 units Lidocaine (Lidoderm) 1 ea TD DAILY [facility] Last Admin: 08/09/18 08:11 Dose: 1 ea Oxycodone/Acetaminophen (Percocet 5/325 Mg Tab) 2 tab PO Q4 PRN PRN Reason: Pain, moderate (4-7) Stop: 08/11/18 13:30 Last Admin: 08/09/18 22:18 Dose: 2 tab Potassium Chloride (K-Dur 20 Meq Er Tab) 20 meq PO BID [facility] Last Admin: 08/09/18 16:28 Dose: 20 meq Multivit/Folic Acid/Iron () 1 tab PO DAILY [facility] Last Admin: 08/09/18 08:11 Dose: 1 tab - Labs Labs: 08/09/18 09:10 08/09/18 09:10 PT 12.7 Seconds (9.8-13.1) 07/28/18 16:15 INR 1.1 07/28/18 16:15 APTT 28.9 Seconds (25.6-37.1) 07/28/18 16:15 - Head Exam Head Exam: NORMAL INSPECTION - Eye Exam Eye Exam: Normal appearance - ENT Exam ENT Exam: Mucous Membranes Moist - Respiratory Exam Respiratory Exam: Clear to Ausculation Bilateral - Cardiovascular Exam Cardiovascular Exam: REGULAR RHYTHM - GI/Abdominal Exam GI & Abdominal Exam: Normal Bowel Sounds - Skin Additional comments: some discharge on the incision area buttocks Assessment and Plan (1) Cellulitis and abscess of buttock Status: Acute (2) Diabetes mellitus type 2 in obese Status: Resolved (3) Status: Acute (4) Morbid (severe) obesity due to excess calories Status: Acute - Assessment and Plan (Free Text) Plan: Cont meds Cont tx Cont PT wound care
--- NOTE | 2018-08-09 22:29 | CP.PCM.PN ---
Subjective - Date & Time of Evaluation Date of Evaluation: 08/08/18 Time of Evaluation: 11:00 - Subjective Subjective: Noted decrease in WBC to 12 Noted better accuchecks Has no fever. Noted decrease in discharge at the incision site. Objective - Vital Signs/Intake and Output Vital Signs (last 24 hours): Temp Pulse Resp BP Pulse Ox 98.2 F 73 18 142/80 96 08/09/18 16:11 08/09/18 16:11 08/09/18 16:11 08/09/18 16:11 08/09/18 16:11 - Medications Medications: Current Medications Acetaminophen (Tylenol 325mg Tab) 650 mg PO Q6 PRN PRN Reason: Fever >100.4 F Last Admin: 07/30/18 20:17 Dose: 650 mg Clotrimazole (Lotrimin 1% Vaginal) 1 applic VG DAILY [facility] Last Admin: 08/09/18 10:06 Dose: 1 applic Dextrose (Dextrose 50% Inj) 0 ml IV STAT PRN; Protocol PRN Reason: Hypoglycemia Protocol Dextrose (Glutose 15) 0 gm PO ONCE PRN; Protocol PRN Reason: Hypoglycemia Protocol Docusate Sodium (Colace) 100 mg PO BID [facility] Last Admin: 08/09/18 16:24 Dose: 100 mg Enoxaparin Sodium (Lovenox) 40 mg SC Q12 [facility] PRN Reason: Protocol Last Admin: 08/03/18 21:37 Dose: 40 mg Glucagon (Glucagen Diagnostic Kit) 0 mg IM STAT PRN; Protocol PRN Reason: Hypoglycemia Protocol Lactated Ringer's (Lactated Ringer's) 1,000 mls @ 80 mls/hr IV .[id number] [facility] Last Admin: 08/08/18 23:00 Dose: Not Given Clindamycin Phosphate 600 mg/ (Sodium Chloride) 104 mls @ 104 mls/hr IVPB Q8 [facility] PRN Reason: Protocol Last Admin: 08/09/18 16:24 Dose: 104 mls/hr Insulin Detemir (Levemir) 15 units SC HS [facility] Last Admin: 08/09/18 22:20 Dose: 15 u Insulin Human Regular (Humulin R) 0 units SC ACHS [facility] PRN Reason: Protocol Last Admin: 08/09/18 22:26 Dose: Not Given Insulin Lispro Protam/Lispro Human (Humalog Mix 75/25) 7 units SC Q12@0700, 1900 [facility] Last Admin: 08/09/18 20:47 Dose: 7 units Lidocaine (Lidoderm) 1 ea TD DAILY [facility] Last Admin: 08/09/18 08:11 Dose: 1 ea Oxycodone/Acetaminophen (Percocet 5/325 Mg Tab) 2 tab PO Q4 PRN PRN Reason: Pain, moderate (4-7) Stop: 08/11/18 13:30 Last Admin: 08/09/18 22:18 Dose: 2 tab Potassium Chloride (K-Dur 20 Meq Er Tab) 20 meq PO BID [facility] Last Admin: 08/09/18 16:28 Dose: 20 meq Multivit/Folic Acid/Iron () 1 tab PO DAILY [facility] Last Admin: 08/09/18 08:11 Dose: 1 tab - Labs Labs: 08/09/18 09:10 08/09/18 09:10 PT 12.7 Seconds (9.8-13.1) 07/28/18 16:15 INR 1.1 07/28/18 16:15 APTT 28.9 Seconds (25.6-37.1) 07/28/18 16:15 - Head Exam Head Exam: NORMAL INSPECTION - Eye Exam Eye Exam: Normal appearance - Respiratory Exam Respiratory Exam: Clear to Ausculation Bilateral - Cardiovascular Exam Cardiovascular Exam: REGULAR RHYTHM - GI/Abdominal Exam GI & Abdominal Exam: Normal Bowel Sounds - Neurological Exam Neurological Exam: Awake Assessment and Plan (1) Cellulitis and abscess of buttock Status: Acute (2) Diabetes mellitus type 2 in obese Status: Resolved (3) Status: Acute (4) Morbid (severe) obesity due to excess calories Status: Acute - Assessment and Plan (Free Text) Plan: Cont meds Cont wound care cont iv antibiotics cont insulin.
[2018-08-10] MEDS: Clindamycin 600 MG in Sodium Chloride 0.9% 100 ML IVPB SCH ×3 (01:24→17:02)
[2018-08-10] MEDS: Oxycodone/Acetaminophen 5/325 mg Tab PO PRN ×4 (02:28→17:10)
[2018-08-10 06:04] LABS: HEMOGLOBIN 10.8 g/dL (12.0-16.0); MEAN CELL VOLUME 88.1 fl (81.0-99.0); RBC 3.61 Mil/uL (3.80-5.20); RED CELL DISTRIBUTION WIDTH 13.3 % (11.5-14.5); WHITE BLOOD COUNT 14.4 K/uL (4.8-10.8)
[2018-08-10] MEDS: Insulin Regular 100 units/ml SC SCH ×4 (07:09→22:30)
[2018-08-10] MEDS: Insulin Lispro Mix 75/25 100 units/ml (HumaLog) 10ml SC SCH ×2 (07:09→18:21)
--- NOTE | 2018-08-10 08:38 | CP.PCM.PN ---
Subjective - Date & Time of Evaluation Date of Evaluation: 08/10/18 Time of Evaluation: 07:20 - Subjective Subjective: General Surgery Note for Dr. Royal Patient seen and examined at bedside. No acute event overnight. Patient still complaining of pain. She states that she has not been walking around much so she was encouraged to do so. Patient has some drainage from site of where drains were. She denies fever/chills. Objective - Vital Signs/Intake and Output Vital Signs (last 24 hours): Temp Pulse Resp BP Pulse Ox 98.9 F 84 20 115/65 99 08/10/18 07:42 08/10/18 07:42 08/10/18 07:42 08/10/18 07:42 08/10/18 07:42 - Medications Medications: Current Medications Acetaminophen (Tylenol 325mg Tab) 650 mg PO Q6 PRN PRN Reason: Fever >100.4 F Last Admin: 07/30/18 20:17 Dose: 650 mg Clotrimazole (Lotrimin 1% Vaginal) 1 applic VG DAILY [facility] Last Admin: 08/09/18 10:06 Dose: 1 applic Dextrose (Dextrose 50% Inj) 0 ml IV STAT PRN; Protocol PRN Reason: Hypoglycemia Protocol Dextrose (Glutose 15) 0 gm PO ONCE PRN; Protocol PRN Reason: Hypoglycemia Protocol Docusate Sodium (Colace) 100 mg PO BID [facility] Last Admin: 08/09/18 16:24 Dose: 100 mg Enoxaparin Sodium (Lovenox) 40 mg SC Q12 [facility] PRN Reason: Protocol Last Admin: 08/03/18 21:37 Dose: 40 mg Glucagon (Glucagen Diagnostic Kit) 0 mg IM STAT PRN; Protocol PRN Reason: Hypoglycemia Protocol Lactated Ringer's (Lactated Ringer's) 1,000 mls @ 80 mls/hr IV .[id number] [facility] Last Admin: 08/10/18 00:00 Dose: 80 mls/hr Clindamycin Phosphate 600 mg/ (Sodium Chloride) 104 mls @ 104 mls/hr IVPB Q8 [facility] PRN Reason: Protocol Last Admin: 08/10/18 01:24 Dose: 104 mls/hr Insulin Detemir (Levemir) 15 units SC HS [facility] Last Admin: 08/09/18 22:20 Dose: 15 u Insulin Human Regular (Humulin R) 0 units SC ACHS [facility] PRN Reason: Protocol Last Admin: 08/10/18 07:09 Dose: Not Given Insulin Lispro Protam/Lispro Human (Humalog Mix 75/25) 7 units SC Q12@0700, 1900 [facility] Last Admin: 08/10/18 07:09 Dose: 7 units Lidocaine (Lidoderm) 1 ea TD DAILY [facility] Last Admin: 08/09/18 08:11 Dose: 1 ea Oxycodone/Acetaminophen (Percocet 5/325 Mg Tab) 2 tab PO Q4 PRN PRN Reason: Pain, moderate (4-7) Stop: 08/11/18 13:30 Last Admin: 08/10/18 07:16 Dose: 2 tab Potassium Chloride (K-Dur 20 Meq Er Tab) 20 meq PO BID [facility] Last Admin: 08/09/18 16:28 Dose: 20 meq Multivit/Folic Acid/Iron () 1 tab PO DAILY [facility] Last Admin: 08/09/18 08:11 Dose: 1 tab - Labs Labs: 08/10/18 05:30 08/09/18 09:10 PT 12.7 Seconds (9.8-13.1) 07/28/18 16:15 INR 1.1 07/28/18 16:15 APTT 28.9 Seconds (25.6-37.1) 07/28/18 16:15 - Additional Findings Additional findings: - Constitutional Appears: Non-toxic, No Acute Distress - Head Exam Head Exam: ATRAUMATIC, NORMOCEPHALIC - Eye Exam Eye Exam: Normal Appearance. - Respiratory Exam Respiratory Exam: NORMAL BREATHING PATTERN - Cardiovascular Exam Cardiovascular Exam: RRR, +S1, +S2 - GI/Abdominal Exam GI & Abdominal Exam: Soft. absent: Distended, Tenderness - Rectal Exam Additional comments: L gluteus: erythema present but improving, TTP, fibrinous exudate in wound beds , purulent drainage from where drains were, dressing changed this AM - Neurological Exam Neurological Exam: Alert, Awake, Oriented x3 - Skin Skin Exam: Dry, Warm Assessment and Plan - Assessment and Plan (Free Text) Assessment: 33F s/p left gluteal abscess I & D POD#6 Plan: -Pain management, switch to oral medications 2 tabs of Percocet Q4H PRN and will wean off -Daily irrigation with peroxide/saline, May change dressing as needed -Encourage OOB to chair/Ambulation/IS -Continue IV abx -topical antifungal cream for suspected yeast infection -f/u ID recommendations for ABX for discahrge planning -Case Management referral for discharge planning -Further recommendations as per Dr. Lele Munroe PGY2
[2018-08-10] MEDS: Potassium Chloride 20 mEq ER Tab PO SCH ×2 (08:55→18:20)
[2018-08-10] MEDS: Lidocaine 5% Patch TD SCH (08:56)
[2018-08-10] MEDS: Prenatal Multivit/Folic Acid/Iron Tab PO SCH (08:59)
--- NOTE | 2018-08-10 11:36 | PN ---
DATE: 08/09/2018 SUBJECTIVE: The patient is seen on the floor. She is requiring, or at least getting Dilaudid on a every 4 hour basis on the clock. Last night, we started oral pain medicine and reduced the Dilaudid. She responded very aggressively. This morning, I spoke to her, she understands that we are going to be slowing down the Dilaudid and encouraging oral analgesics. I think she understands. If this is the problem, consult from pain management. For now, the white count is stable at 12.8. There is no new tenderness. No new erythema. The swelling is subsiding, but it is still draining. PLAN: We will plan to continue the antibiotics and showering for now, but gradually and consistently slow down on the analgesics. Alejandro Royal MD
[2018-08-10] MEDS: cefTRIAXone 2 GM in Sodium Chloride 0.9% 100 ML IVPB SCH (11:55)
--- NOTE | 2018-08-10 12:10 | CP.PCM.PN ---
Subjective - Date & Time of Evaluation Date of Evaluation: 08/10/18 Time of Evaluation: 10:38 - Subjective Subjective: patient seen and examined at bedside today. complaints of yeast infection persistent even with topical. wants to go home. no other complaints offered at this time. no acute events overnight. no fever/chills. Objective - Vital Signs/Intake and Output Vital Signs (last 24 hours): Temp Pulse Resp BP Pulse Ox 98.9 F 84 20 115/65 99 08/10/18 07:42 08/10/18 07:42 08/10/18 07:42 08/10/18 07:42 08/10/18 07:42 - Medications Medications: Current Medications Acetaminophen (Tylenol 325mg Tab) 650 mg PO Q6 PRN PRN Reason: Fever >100.4 F Last Admin: 07/30/18 20:17 Dose: 650 mg Clotrimazole (Lotrimin 1% Vaginal) 1 applic VG DAILY [facility] Last Admin: 08/10/18 08:58 Dose: 1 applic Dextrose (Dextrose 50% Inj) 0 ml IV STAT PRN; Protocol PRN Reason: Hypoglycemia Protocol Dextrose (Glutose 15) 0 gm PO ONCE PRN; Protocol PRN Reason: Hypoglycemia Protocol Docusate Sodium (Colace) 100 mg PO BID [facility] Last Admin: 08/10/18 08:54 Dose: 100 mg Enoxaparin Sodium (Lovenox) 40 mg SC Q12 [facility] PRN Reason: Protocol Last Admin: 08/03/18 21:37 Dose: 40 mg Glucagon (Glucagen Diagnostic Kit) 0 mg IM STAT PRN; Protocol PRN Reason: Hypoglycemia Protocol Lactated Ringer's (Lactated Ringer's) 1,000 mls @ 80 mls/hr IV .[id number] [facility] Last Admin: 08/10/18 00:00 Dose: 80 mls/hr Clindamycin Phosphate 600 mg/ (Sodium Chloride) 104 mls @ 104 mls/hr IVPB Q8 [facility] PRN Reason: Protocol Last Admin: 08/10/18 08:53 Dose: 104 mls/hr Ceftriaxone Sodium 2 gm/ (Sodium Chloride) 100 mls @ 100 mls/hr IVPB DAILY [facility] PRN Reason: Protocol Insulin Detemir (Levemir) 15 units SC HS [facility] Last Admin: 08/09/18 22:20 Dose: 15 u Insulin Human Regular (Humulin R) 0 units SC ACHS [facility] PRN Reason: Protocol Last Admin: 08/10/18 07:09 Dose: Not Given Insulin Lispro Protam/Lispro Human (Humalog Mix 75/25) 7 units SC Q12@0700, 1900 [facility] Last Admin: 08/10/18 07:09 Dose: 7 units Lidocaine (Lidoderm) 1 ea TD DAILY [facility] Last Admin: 08/10/18 08:56 Dose: 1 ea Oxycodone/Acetaminophen (Percocet 5/325 Mg Tab) 2 tab PO Q4 PRN PRN Reason: Pain, moderate (4-7) Stop: 08/11/18 13:30 Last Admin: 08/10/18 10:57 Dose: 2 tab Potassium Chloride (K-Dur 20 Meq Er Tab) 20 meq PO BID [facility] Last Admin: 08/10/18 08:55 Dose: 20 meq Multivit/Folic Acid/Iron () 1 tab PO DAILY [facility] Last Admin: 08/10/18 08:59 Dose: 1 tab - Labs Labs: 08/10/18 05:30 08/09/18 09:10 PT 12.7 Seconds (9.8-13.1) 07/28/18 16:15 INR 1.1 07/28/18 16:15 APTT 28.9 Seconds (25.6-37.1) 07/28/18 16:15 - Additional Findings Additional findings: - Constitutional Appears: Well, No Acute Distress - Head Exam Head Exam: ATRAUMATIC, NORMAL INSPECTION, NORMOCEPHALIC - Eye Exam Eye Exam: Normal appearance - Respiratory Exam Respiratory Exam: Clear to Ausculation Bilateral, NORMAL BREATHING PATTERN - Cardiovascular Exam Cardiovascular Exam: REGULAR RHYTHM, +S1, +S2. absent: Murmur - Neurological Exam Neurological Exam: Alert, Awake, Oriented x3 - Psychiatric Exam Psychiatric exam: Normal Affect, Normal Mood - Skin Skin Exam: Normal Color, Warm Assessment and Plan - Assessment and Plan (Free Text) Assessment: 33 yo female s/p left gluteal abscess I&D and vaginal yeast infection c/w IV antibiotics daily wound cleaning c/w pain management as per surgical team obgyn consult appreciated labs in am
[2018-08-10] MEDS: Lactated Ringer's 1,000 ML IV SCH ×2 (13:39)
--- NOTE | 2018-08-10 16:33 | CP.PCM.PN ---
Subjective - Date & Time of Evaluation Date of Evaluation: 08/10/18 Time of Evaluation: 16:23 - Subjective Subjective: I D NOTE REVIEWED CULTURES WHICH MAY BE SKIN RELATED AND SHOULD BE COVERED BY PRESENT REGIMEN(ANTIBIOTICS) AFTER DISCUSSION c surgical team may need manager intermediate oral and iv antibiotics. Objective - Vital Signs/Intake and Output Vital Signs (last 24 hours): Temp Pulse Resp BP Pulse Ox 99.7 F H 78 18 111/68 100 08/10/18 16:05 08/10/18 16:05 08/10/18 16:05 08/10/18 16:05 08/10/18 16:05 - Medications Medications: Current Medications Acetaminophen (Tylenol 325mg Tab) 650 mg PO Q6 PRN PRN Reason: Fever >100.4 F Last Admin: 07/30/18 20:17 Dose: 650 mg Clotrimazole (Lotrimin 1% Vaginal) 1 applic VG DAILY [facility] Last Admin: 08/10/18 08:58 Dose: 1 applic Dextrose (Dextrose 50% Inj) 0 ml IV STAT PRN; Protocol PRN Reason: Hypoglycemia Protocol Dextrose (Glutose 15) 0 gm PO ONCE PRN; Protocol PRN Reason: Hypoglycemia Protocol Docusate Sodium (Colace) 100 mg PO BID [facility] Last Admin: 08/10/18 08:54 Dose: 100 mg Enoxaparin Sodium (Lovenox) 40 mg SC Q12 [facility] PRN Reason: Protocol Last Admin: 08/03/18 21:37 Dose: 40 mg Glucagon (Glucagen Diagnostic Kit) 0 mg IM STAT PRN; Protocol PRN Reason: Hypoglycemia Protocol Lactated Ringer's (Lactated Ringer's) 1,000 mls @ 80 mls/hr IV .[id number] [facility] Last Admin: 08/10/18 13:39 Dose: Not Given Clindamycin Phosphate 600 mg/ (Sodium Chloride) 104 mls @ 104 mls/hr IVPB Q8 [facility] PRN Reason: Protocol Last Admin: 08/10/18 08:53 Dose: 104 mls/hr Ceftriaxone Sodium 2 gm/ (Sodium Chloride) 100 mls @ 100 mls/hr IVPB DAILY [facility] PRN Reason: Protocol Last Admin: 08/10/18 11:55 Dose: 100 mls/hr Insulin Detemir (Levemir) 15 units SC [facility] Last Admin: 08/09/18 22:20 Dose: 15 u Insulin Human Regular (Humulin R) 0 units SC ACHS [facility] PRN Reason: Protocol Last Admin: 08/10/18 11:54 Dose: 1 units Insulin Lispro Protam/Lispro Human (Humalog Mix 75/25) 7 units SC Q12@0700, 1900 [facility] Last Admin: 08/10/18 07:09 Dose: 7 units Lidocaine (Lidoderm) 1 ea TD DAILY [facility] Last Admin: 08/10/18 08:56 Dose: 1 ea Oxycodone/Acetaminophen (Percocet 5/325 Mg Tab) 2 tab PO Q4 PRN PRN Reason: Pain, moderate (4-7) Stop: 08/11/18 13:30 Last Admin: 08/10/18 10:57 Dose: 2 tab Potassium Chloride (K-Dur 20 Meq Er Tab) 20 meq PO BID [facility] Last Admin: 08/10/18 08:55 Dose: 20 meq Multivit/Folic Acid/Iron () 1 tab PO DAILY [facility] Last Admin: 08/10/18 08:59 Dose: 1 tab - Labs Labs: 08/10/18 05:30 08/09/18 09:10 PT 12.7 Seconds (9.8-13.1) 07/28/18 16:15 INR 1.1 07/28/18 16:15 APTT 28.9 Seconds (25.6-37.1) 07/28/18 16:15
--- NOTE | 2018-08-10 17:32 | CP.PCM.CON ---
History of Present Illness - History of Present Illness History of Present Illness: 33 yo @ about 17.5 wks admitted for 2 weeks for treatment for left gluteal cellulitis. Patient was found to have DM on admission and is being treated with insulin. Patient has had surgery to debride, drains placed and removed and is currently being treated with IV Abx. Patient reports perineal pain, spotting when she wipes and overall discomfort. Pt reports decreased movement, otherwise no CP, no SOB, no N/V, ambulating minimal. Past Patient History - Past Medical History & Family History Past Medical History?: Yes - Past Social History Alcohol: None Drugs: Denies - ENDOCRINE/METABOLIC Hx Endocrine Disorders: Yes (gallbladder disease) - MUSCULOSKELETAL/RHEUMATOLOGICAL Hx Falls: No - PSYCHIATRIC Hx Substance Use: No - SURGICAL HISTORY Hx Cholecystectomy: Yes (Jan 2016) Other/Comment: DNC - ANESTHESIA Hx Anesthesia: Yes Hx Anesthesia Reactions: No Meds Allergies/Adverse Reactions: Allergies Allergy/AdvReac Type Severity Reaction Status Date / Time codeine Allergy VOMITING Verified 03/17/18 16:23 latex Allergy RASH Verified 03/17/18 16:23 - Medications Medications: Current Medications Acetaminophen (Tylenol 325mg Tab) 650 mg PO Q6 PRN PRN Reason: Fever >100.4 F Last Admin: 07/30/18 20:17 Dose: 650 mg Clotrimazole (Lotrimin 1% Vaginal) 1 applic VG DAILY [facility] Last Admin: 08/10/18 08:58 Dose: 1 applic Dextrose (Dextrose 50% Inj) 0 ml IV STAT PRN; Protocol PRN Reason: Hypoglycemia Protocol Dextrose (Glutose 15) 0 gm PO ONCE PRN; Protocol PRN Reason: Hypoglycemia Protocol Docusate Sodium (Colace) 100 mg PO BID [facility] Last Admin: 08/10/18 17:01 Dose: 100 mg Enoxaparin Sodium (Lovenox) 40 mg SC Q12 [facility] PRN Reason: Protocol Last Admin: 08/03/18 21:37 Dose: 40 mg Glucagon (Glucagen Diagnostic Kit) 0 mg IM STAT PRN; Protocol PRN Reason: Hypoglycemia Protocol Lactated Ringer's (Lactated Ringer's) 1,000 mls @ 80 mls/hr IV .[id number] [facility] Last Admin: 08/10/18 13:39 Dose: Not Given Clindamycin Phosphate 600 mg/ (Sodium Chloride) 104 mls @ 104 mls/hr IVPB Q8 [facility] PRN Reason: Protocol Last Admin: 08/10/18 17:02 Dose: 104 mls/hr Ceftriaxone Sodium 2 gm/ (Sodium Chloride) 100 mls @ 100 mls/hr IVPB DAILY [facility] PRN Reason: Protocol Last Admin: 08/10/18 11:55 Dose: 100 mls/hr Insulin Detemir (Levemir) 15 units SC [facility] Last Admin: 08/09/18 22:20 Dose: 15 u Insulin Human Regular (Humulin R) 0 units SC ACHS [facility] PRN Reason: Protocol Last Admin: 08/10/18 11:54 Dose: 1 units Insulin Lispro Protam/Lispro Human (Humalog Mix 75/25) 7 units SC Q12@0700, 1900 [facility] Last Admin: 08/10/18 07:09 Dose: 7 units Lidocaine (Lidoderm) 1 ea TD DAILY [facility] Last Admin: 08/10/18 08:56 Dose: 1 ea Oxycodone/Acetaminophen (Percocet 5/325 Mg Tab) 2 tab PO Q4 PRN PRN Reason: Pain, moderate (4-7) Stop: 08/11/18 13:30 Last Admin: 08/10/18 17:10 Dose: 2 tab Potassium Chloride (K-Dur 20 Meq Er Tab) 20 meq PO BID [facility] Last Admin: 08/10/18 08:55 Dose: 20 meq Multivit/Folic Acid/Iron () 1 tab PO DAILY [facility] Last Admin: 08/10/18 08:59 Dose: 1 tab Terconazole (Terazol 7 (0.4%)Cream) 1 applic VG [facility] Stop: 08/16/18 22:01 Physical Exam - Constitutional Appears: Well Additional comments: Morbid obesity - Head Exam Head Exam: ATRAUMATIC - Eye Exam Pupil Exam: PERRL - Respiratory Exam Respiratory Exam: Wheezes, NORMAL BREATHING PATTERN - Cardiovascular Exam Cardiovascular Exam: REGULAR RHYTHM, +S1, +S2 - GI/Abdominal Exam GI & Abdominal Exam: Soft Additional comments: Large panus, slight pain to deep pressure, +BS, no rebound, no gaurding - Exam Additional comments: External errythema, painful to touch on left perianal area and top of labia, no purulent drainage, no active bleeding, no active sign of infection. - Extremities Exam Extremities exam: Positive for: normal inspection - Skin Skin Exam: Normal Color, Warm Results - Vital Signs Recent Vital Signs: Last Vital Signs Temp 99.7 F H 08/10/18 16:05 Pulse 78 08/10/18 16:05 Resp 18 08/10/18 16:05 BP 111/68 08/10/18 16:05 Pulse Ox 100 08/10/18 16:05 - Labs Result Diagrams: 08/10/18 05:30 08/09/18 09:10 Labs: Laboratory Results - last 24 hr 08/09/18 08/10/18 08/10/18 21:22 05:30 05:49 WBC 14.4 H RBC 3.61 L Hgb 10.8 L Hct 31.8 L MCV 88.1 MCH 30.0 MCHC 34.0 RDW 13.3 Plt Count 376 POC Glucose (mg/dL) 154 H 96 08/10/18 10:46 WBC RBC Hgb Hct MCV MCH MCHC RDW Plt Count POC Glucose (mg/dL) 160 H Assessment & Plan - Assessment and Plan (Free Text) Assessment: A/P 33 yo @ 17.5 wks admitted for management of left gluteal cellulitis reporting vaginal pain/bleeding 1. Assessment of heart rate by hand doppler unable to complete - will order OB U/S for assessment of fetus 2. Patient to have FS below 95 and 2 hr postprandial below 120. Pt to follow up with MFM when discharged for management 3. On physical exam patient has errythema and pain in vaginal area adjoining where cellulitis was debrided, but does not look to be currently infected. Pt currently on IV Abx and Percocet for pain. Will order a vaginal treatment for yeast infection, should help with her discomfort. No active bleeding appreciated 4. Consult appreciated - Date & Time Date: 08/10/18 Time: 17:32
--- NOTE | 2018-08-10 18:57 | US ---
Indication: Unable to assess heart rate OB ultrasound, limited Comparison: Ob limited ultrasound performed 08/04/18 Technique: Real-time ultrasound was performed through the pelvis. Findings: Limited examination performed for the purposes of detecting heart rate; heart rate was detected measuring approximately 167 beats per minute. Posterior fundal placenta. No evidence of previa at this time. Breech presentation. No significant pelvic free fluid identified. The ovaries were not identified. Cervix length measures approximately 4.4 cm. Impression: Estimated heart rate 167 beats per minute. Limited additional findings as above. The study was performed for the emergent evaluation of heart rate, and the whole anatomic survey of the fetus was not performed. This should be performed on an outpatient elective basis as clinically warranted.
[2018-08-10] MEDS ORDERED: Miconazole 2% Vaginal 7 CREAM VAG SCH (22:00)
[2018-08-10] MEDS: Insulin Detemir 100 Units/ml Inj SC SCH (22:02)
[2018-08-10] MEDS: Terconazole 7 cream 45gm VG SCH (22:06)
[2018-08-11] MEDS: Clindamycin 600 MG in Sodium Chloride 0.9% 100 ML IVPB SCH ×3 (01:24→16:30)
[2018-08-11] MEDS: Lactated Ringer's 1,000 ML IV SCH (02:00)
[2018-08-11] MEDS: Oxycodone/Acetaminophen 5/325 mg Tab PO PRN ×4 (02:17→19:23)
[2018-08-11 06:14] LABS: HEMOGLOBIN 10.8 g/dL (12.0-16.0); MEAN CORPUSCULAR HEMOGLOBIN 29.9 pg (27.0-31.0); MEAN CORPUSCULAR HGB CONC 33.6 g/dL (33.0-37.0); RBC 3.62 Mil/uL (3.80-5.20); RED CELL DISTRIBUTION WIDTH 13.9 % (11.5-14.5); WHITE BLOOD COUNT 14.6 K/uL (4.8-10.8)
[2018-08-11 06:37] LABS: ALB/GLOB RATIO 0.9 (1.0-2.1); ALT/SGPT 41 U/L (9-52); AST/SGOT 34 U/L (14-36); BLOOD UREA NITROGEN 7 mg/dl (7-17); CALCIUM 9.3 mg/dL (8.4-10.2); GFR NON-AFRICAN AMERICAN > 60
--- NOTE | 2018-08-11 07:53 | CP.PCM.PN ---
Subjective - Date & Time of Evaluation Date of Evaluation: 08/11/18 Time of Evaluation: 07:00 - Subjective Subjective: General Surgery Note for Dr. Royal Patient seen and examined at bedside. Overnight, patient asked for dilaudid to help her sleep. Patient still complaining of pain on gluteus. She states that her groin has developed some new redness and states it is tender. Denies fever/ chills. Objective - Vital Signs/Intake and Output Vital Signs (last 24 hours): Temp Pulse Resp BP Pulse Ox 98.5 F 83 18 114/64 94 L 08/10/18 23:47 08/10/18 23:47 08/10/18 23:47 08/10/18 23:47 08/10/18 23:47 - Medications Medications: Current Medications Acetaminophen (Tylenol 325mg Tab) 650 mg PO Q6 PRN PRN Reason: Fever >100.4 F Last Admin: 07/30/18 20:17 Dose: 650 mg Dextrose (Dextrose 50% Inj) 0 ml IV STAT PRN; Protocol PRN Reason: Hypoglycemia Protocol Dextrose (Glutose 15) 0 gm PO ONCE PRN; Protocol PRN Reason: Hypoglycemia Protocol Docusate Sodium (Colace) 100 mg PO BID [facility] Last Admin: 08/10/18 17:01 Dose: 100 mg Enoxaparin Sodium (Lovenox) 40 mg SC Q12 [facility] PRN Reason: Protocol Last Admin: 08/03/18 21:37 Dose: 40 mg Glucagon (Glucagen Diagnostic Kit) 0 mg IM STAT PRN; Protocol PRN Reason: Hypoglycemia Protocol Lactated Ringer's (Lactated Ringer's) 1,000 mls @ 80 mls/hr IV .[id number] [facility] Last Admin: 08/11/18 02:00 Dose: Not Given Clindamycin Phosphate 600 mg/ (Sodium Chloride) 104 mls @ 104 mls/hr IVPB Q8 [facility] PRN Reason: Protocol Last Admin: 08/11/18 01:24 Dose: 104 mls/hr Ceftriaxone Sodium 2 gm/ (Sodium Chloride) 100 mls @ 100 mls/hr IVPB DAILY [facility] PRN Reason: Protocol Last Admin: 08/10/18 11:55 Dose: 100 mls/hr Insulin Detemir (Levemir) 15 units SC HS [facility] Last Admin: 08/10/18 22:02 Dose: 15 u Insulin Human Regular (Humulin R) 0 units SC ACHS [facility] PRN Reason: Protocol Last Admin: 08/10/18 22:30 Dose: Not Given Insulin Lispro Protam/Lispro Human (Humalog Mix 75/25) 7 units SC Q12@0700, 1900 [facility] Last Admin: 08/10/18 18:21 Dose: 7 units Lidocaine (Lidoderm) 1 ea TD DAILY [facility] Last Admin: 08/10/18 08:56 Dose: 1 ea Oxycodone/Acetaminophen (Percocet 5/325 Mg Tab) 2 tab PO Q4 PRN PRN Reason: Pain, moderate (4-7) Stop: 08/11/18 13:30 Last Admin: 08/11/18 02:17 Dose: 2 tab Potassium Chloride (K-Dur 20 Meq Er Tab) 20 meq PO BID [facility] Last Admin: 08/10/18 18:20 Dose: 20 meq Multivit/Folic Acid/Iron () 1 tab PO DAILY [facility] Last Admin: 08/10/18 08:59 Dose: 1 tab Terconazole (Terazol 7 (0.4%)Cream) 1 applic VG HS [facility] Stop: 08/16/18 22:01 Last Admin: 08/10/18 22:06 Dose: Not Given - Labs Labs: 08/11/18 05:25 08/11/18 05:25 PT 12.7 Seconds (9.8-13.1) 07/28/18 16:15 INR 1.1 07/28/18 16:15 APTT 28.9 Seconds (25.6-37.1) 07/28/18 16:15 - Additional Findings Additional findings: - Constitutional Appears: Non-toxic, No Acute Distress - Head Exam Head Exam: ATRAUMATIC, NORMOCEPHALIC - Eye Exam Eye Exam: Normal Appearance. - Respiratory Exam Respiratory Exam: NORMAL BREATHING PATTERN - Cardiovascular Exam Cardiovascular Exam: RRR, +S1, +S2 - GI/Abdominal Exam GI & Abdominal Exam: Soft. absent: Distended, Tenderness - Rectal Exam Additional comments: L gluteus: erythema improving, still TTP, fibrinous exudate in wound beds, purulent drainage - Neurological Exam Neurological Exam: Alert, Awake, Oriented x3 - Skin Skin Exam: Dry, Warm erythema improving posteriorly, some drainage note, new discoloration in groin Assessment and Plan - Assessment and Plan (Free Text) Assessment: 33F s/p left gluteal abscess I & D POD#7 Plan: -Pain management, switch to oral medications 2 tabs of Percocet Q4H PRN and will wean off -Daily irrigation with peroxide/saline, May change dressing as needed -Encourage OOB to chair/Ambulation/IS -Continue IV abx -Antifungal yeast infection -f/u ID recommendations for ABX for discahrge planning -Case Management referral for discharge planning -Further recommendations as per Dr. Lele Munroe PGY2
[2018-08-11] MEDS: Insulin Regular 100 units/ml SC SCH ×4 (08:36→23:00)
[2018-08-11] MEDS: Lidocaine 5% Patch TD SCH (08:38)
[2018-08-11] MEDS: Potassium Chloride 20 mEq ER Tab PO SCH ×2 (08:38→16:32)
[2018-08-11] MEDS: Prenatal Multivit/Folic Acid/Iron Tab PO SCH (08:38)
[2018-08-11] MEDS: Insulin Lispro Mix 75/25 100 units/ml (HumaLog) 10ml SC SCH ×2 (08:44→19:42)
--- NOTE | 2018-08-11 11:49 | CP.PCM.PN ---
<Candido Buck - Last Filed: 08/11/18 20:03> Subjective - Date & Time of Evaluation Date of Evaluation: 08/11/18 Time of Evaluation: 10:30 - Subjective Subjective: Pt seen and examined at bedside with Dr. Xie Pt denies acute events overnight. Reports improvement with vaginal discomfort. Tolerating PO diet. Remains afebrile Objective - Vital Signs/Intake and Output Vital Signs (last 24 hours): Temp Pulse Resp BP Pulse Ox 97.8 F 82 20 117/72 97 08/11/18 08:30 08/11/18 08:30 08/11/18 08:30 08/11/18 08:30 08/11/18 08:30 - Medications Medications: Current Medications Acetaminophen (Tylenol 325mg Tab) 650 mg PO Q6 PRN PRN Reason: Fever >100.4 F Last Admin: 07/30/18 20:17 Dose: 650 mg Dextrose (Dextrose 50% Inj) 0 ml IV STAT PRN; Protocol PRN Reason: Hypoglycemia Protocol Dextrose (Glutose 15) 0 gm PO ONCE PRN; Protocol PRN Reason: Hypoglycemia Protocol Docusate Sodium (Colace) 100 mg PO BID [facility] Last Admin: 08/11/18 08:38 Dose: 100 mg Enoxaparin Sodium (Lovenox) 40 mg SC Q12 [facility] PRN Reason: Protocol Last Admin: 08/03/18 21:37 Dose: 40 mg Glucagon (Glucagen Diagnostic Kit) 0 mg IM STAT PRN; Protocol PRN Reason: Hypoglycemia Protocol Lactated Ringer's (Lactated Ringer's) 1,000 mls @ 80 mls/hr IV .[id number] [facility] Last Admin: 08/11/18 02:00 Dose: Not Given Clindamycin Phosphate 600 mg/ (Sodium Chloride) 104 mls @ 104 mls/hr IVPB Q8 [facility] PRN Reason: Protocol Last Admin: 08/11/18 08:36 Dose: 104 mls/hr Ceftriaxone Sodium 2 gm/ (Sodium Chloride) 100 mls @ 100 mls/hr IVPB DAILY [facility] PRN Reason: Protocol Last Admin: 08/10/18 11:55 Dose: 100 mls/hr Insulin Detemir (Levemir) 15 units SC HS [facility] Last Admin: 08/10/18 22:02 Dose: 15 u Insulin Human Regular (Humulin R) 0 units SC ACHS [facility] PRN Reason: Protocol Last Admin: 08/11/18 08:36 Dose: Not Given Insulin Lispro Protam/Lispro Human (Humalog Mix 75/25) 7 units SC Q12@0700, 1900 [facility] Last Admin: 08/11/18 08:44 Dose: 7 units Lidocaine (Lidoderm) 1 ea TD DAILY [facility] Last Admin: 08/11/18 08:38 Dose: 1 ea Oxycodone/Acetaminophen (Percocet 5/325 Mg Tab) 2 tab PO Q4 PRN PRN Reason: Pain, moderate (4-7) Stop: 08/11/18 13:30 Last Admin: 08/11/18 08:32 Dose: 2 tab Potassium Chloride (K-Dur 20 Meq Er Tab) 20 meq PO BID [facility] Last Admin: 08/11/18 08:38 Dose: 20 meq Multivit/Folic Acid/Iron () 1 tab PO DAILY [facility] Last Admin: 08/11/18 08:38 Dose: 1 tab Terconazole (Terazol 7 (0.4%)Cream) 1 applic VG HS [facility] Stop: 08/16/18 22:01 Last Admin: 08/10/18 22:06 Dose: Not Given - Labs Labs: 08/11/18 05:25 08/11/18 05:25 PT 12.7 Seconds (9.8-13.1) 07/28/18 16:15 INR 1.1 07/28/18 16:15 APTT 28.9 Seconds (25.6-37.1) 07/28/18 16:15 - Constitutional Appears: Well, Non-toxic, No Acute Distress - Eye Exam Eye Exam: EOMI - Respiratory Exam Respiratory Exam: Clear to Ausculation Bilateral, NORMAL BREATHING PATTERN. absent: Wheezes - Cardiovascular Exam Cardiovascular Exam: +S1, +S2 - GI/Abdominal Exam GI & Abdominal Exam: Soft, Normal Bowel Sounds. absent: Tenderness - Neurological Exam Neurological Exam: Alert, Awake, CN II-XII Intact, Oriented x3 - Psychiatric Exam Psychiatric exam: Normal Affect, Normal Mood Assessment and Plan (1) Vaginal yeast infection Status: Acute (2) Cellulitis and abscess of buttock Status: Acute (3) Morbid (severe) obesity due to excess calories Status: Acute (4) Status: Acute - Assessment and Plan (Free Text) Plan: Surgery: Dr. Royal, Obgyn, ID: Dr. Fraga on board; future recommendations appreciated pt will require continued IV ABX OB ultrasound and labs reviewed Case dw Dr. Rojas Buck MD PGY2 <Sterling Xie - Last Filed: 08/13/18 16:48> Objective - Vital Signs/Intake and Output Vital Signs (last 24 hours): Temp Pulse Resp BP Pulse Ox 97.7 F 77 18 115/73 97 08/13/18 16:25 08/13/18 16:25 08/13/18 16:25 08/13/18 16:25 08/13/18 16:25 - Medications Medications: Current Medications Acetaminophen (Tylenol 325mg Tab) 650 mg PO Q6 PRN PRN Reason: Fever >100.4 F Last Admin: 07/30/18 20:17 Dose: 650 mg Betamethasone Dipropion Augmented (Diprolene Af) 1 gm TOP BID [facility] Last Admin: 08/13/18 16:20 Dose: 1 appl Clotrimazole (Lotrimin 1% Vaginal) 1 applic VG HS [facility] Dextrose (Dextrose 50% Inj) 0 ml IV STAT PRN; Protocol PRN Reason: Hypoglycemia Protocol Dextrose (Glutose 15) 0 gm PO ONCE PRN; Protocol PRN Reason: Hypoglycemia Protocol Docusate Sodium (Colace) 100 mg PO BID [facility] Last Admin: 08/13/18 16:17 Dose: 100 mg Enoxaparin Sodium (Lovenox) 40 mg SC Q12 [facility] PRN Reason: Protocol Last Admin: 08/03/18 21:37 Dose: 40 mg Glucagon (Glucagen Diagnostic Kit) 0 mg IM STAT PRN; Protocol PRN Reason: Hypoglycemia Protocol Lactated Ringer's (Lactated Ringer's) 1,000 mls @ 80 mls/hr IV .[id number] [facility] Last Admin: 08/12/18 03:43 Dose: Not Given Clindamycin Phosphate 600 mg/ (Sodium Chloride) 104 mls @ 104 mls/hr IVPB Q8 [facility] PRN Reason: Protocol Last Admin: 08/13/18 16:12 Dose: 104 mls/hr Ceftriaxone Sodium 2 gm/ (Sodium Chloride) 100 mls @ 100 mls/hr IVPB DAILY [facility] PRN Reason: Protocol Last Admin: 08/13/18 08:30 Dose: 100 mls/hr Insulin Detemir (Levemir) 15 units SC [facility] Last Admin: 08/12/18 22:15 Dose: 15 u Insulin Human Regular (Humulin R) 0 units SC ACHS [facility] PRN Reason: Protocol Last Admin: 08/13/18 16:36 Dose: 1 units Insulin Lispro Protam/Lispro Human (Humalog Mix 75/25) 7 units SC Q12@0700, 1900 [facility] Last Admin: 08/13/18 08:22 Dose: 7 units Lidocaine (Lidoderm) 1 ea TD DAILY [facility] Last Admin: 08/13/18 08:23 Dose: 1 ea Nystatin (Mycostatin Cream) 1 applic TOP BID [facility] Last Admin: 08/13/18 16:21 Dose: 1 applic Oxycodone/Acetaminophen (Percocet 5/325 Mg Tab) 2 tab PO Q4 PRN PRN Reason: Pain, moderate (4-7) Stop: 08/14/18 17:41 Last Admin: 08/13/18 14:30 Dose: 2 tab Potassium Chloride (K-Dur 20 Meq Er Tab) 20 meq PO BID [facility] Last Admin: 08/13/18 16:21 Dose: 20 meq Multivit/Folic Acid/Iron () 1 tab PO DAILY [facility] Last Admin: 08/13/18 08:35 Dose: 1 tab Terconazole (Terazol 7 (0.4%)Cream) 1 applic VG [facility] Stop: 08/16/18 22:01 Last Admin: 08/12/18 22:24 Dose: Not Given - Labs Labs: 08/13/18 05:50 08/13/18 05:50 PT 12.7 Seconds (9.8-13.1) 07/28/18 16:15 INR 1.1 07/28/18 16:15 APTT 28.9 Seconds (25.6-37.1) 07/28/18 16:15 Assessment and Plan (1) Cellulitis and abscess of buttock Status: Acute (2) Diabetes mellitus type 2 in obese Status: Resolved (3) Status: Acute (4) Morbid (severe) obesity due to excess calories Status: Acute - Assessment and Plan (Free Text) Plan: I was present during evaluation. Discussed with Dr Buck re plans of care and mgt. Sterling Xie M.D.
[2018-08-11] MEDS: cefTRIAXone 2 GM in Sodium Chloride 0.9% 100 ML IVPB SCH (12:15)
--- NOTE | 2018-08-11 15:16 | PN ---
DATE: 08/11/2018 Kiki was seen on the floor yesterday. She has new redness anteriorly on the left pubis. She is still very tender and is in pain. The posterior confines seem to be improving, although there is still some thickness here. The drainage has slowed down. I do not think there is any drainable collection and will continue with antibiotics. The normal treatment for something like this will be an I and D, which has been minimally successful so far. The concern is the deeper infection; however, MRI cannot be done because of her weight and the CAT scan cannot be done because of her . Ultrasound had been done that showed several pockets that were drained. For now, we will continue the antibiotics and ask for current ID input. She wants to go home and this might be reasonable. We will determine if she can do sitz baths. Alejandro Royal MD
[2018-08-11] MEDS ORDERED: Hydrogen Peroxide 3% Soln (480ml) TP ONE (16:20)
[2018-08-11] MEDS: Terconazole 7 cream 45gm VG SCH (22:30)
[2018-08-11] MEDS: Insulin Detemir 100 Units/ml Inj SC SCH (22:30)
[2018-08-12] MEDS: Oxycodone/Acetaminophen 5/325 mg Tab PO PRN ×5 (00:17→21:10)
[2018-08-12] MEDS: Clindamycin 600 MG in Sodium Chloride 0.9% 100 ML IVPB SCH ×3 (00:18→16:14)
[2018-08-12] MEDS: Lactated Ringer's 1,000 ML IV SCH (03:43)
[2018-08-12] MEDS: Terconazole 7 cream 45gm VG SCH ×2 (03:45→22:24)
[2018-08-12 06:27] LABS: HEMOGLOBIN 10.3 g/dL (12.0-16.0); MEAN CELL VOLUME 88.6 fl (81.0-99.0); MEAN CORPUSCULAR HGB CONC 33.8 g/dL (33.0-37.0); RBC 3.43 Mil/uL (3.80-5.20); RED CELL DISTRIBUTION WIDTH 13.7 % (11.5-14.5); WHITE BLOOD COUNT 13.3 K/uL (4.8-10.8)
[2018-08-12] MEDS: Insulin Regular 100 units/ml SC SCH ×4 (07:30→22:23)
[2018-08-12] MEDS: Potassium Chloride 20 mEq ER Tab PO SCH ×2 (08:52→16:07)
[2018-08-12] MEDS: Lidocaine 5% Patch TD SCH (08:52)
[2018-08-12] MEDS: Prenatal Multivit/Folic Acid/Iron Tab PO SCH (08:55)
[2018-08-12] MEDS: cefTRIAXone 2 GM in Sodium Chloride 0.9% 100 ML IVPB SCH (08:55)
[2018-08-12] MEDS: Insulin Lispro Mix 75/25 100 units/ml (HumaLog) 10ml SC SCH ×2 (08:59→18:34)
--- NOTE | 2018-08-12 10:13 | CP.PCM.PCO ---
Physician Communication Note - Physician Communication Note Physician Communication Note: Per Dr. Fraga,pt to continue IV abx for 12 more days & monitor wound
--- NOTE | 2018-08-12 12:18 | CP.PCM.PN ---
Subjective - Date & Time of Evaluation Date of Evaluation: 08/12/18 Time of Evaluation: 12:20 - Subjective Subjective: General Surgery Note for Dr. Royal Patient seen and examined at bedside. No acute event overnight. Patient currently denies pain. Denies fever/chills. ID wants IV abx for total of 2 more weeks. Objective - Vital Signs/Intake and Output Vital Signs (last 24 hours): Temp Pulse Resp BP Pulse Ox 98.8 F 74 20 120/75 97 08/12/18 08:22 08/12/18 08:22 08/12/18 08:22 08/12/18 08:22 08/12/18 08:22 - Medications Medications: Current Medications Acetaminophen (Tylenol 325mg Tab) 650 mg PO Q6 PRN PRN Reason: Fever >100.4 F Last Admin: 07/30/18 20:17 Dose: 650 mg Dextrose (Dextrose 50% Inj) 0 ml IV STAT PRN; Protocol PRN Reason: Hypoglycemia Protocol Dextrose (Glutose 15) 0 gm PO ONCE PRN; Protocol PRN Reason: Hypoglycemia Protocol Docusate Sodium (Colace) 100 mg PO BID [facility] Last Admin: 08/11/18 16:30 Dose: 100 mg Enoxaparin Sodium (Lovenox) 40 mg SC Q12 [facility] PRN Reason: Protocol Last Admin: 08/03/18 21:37 Dose: 40 mg Glucagon (Glucagen Diagnostic Kit) 0 mg IM STAT PRN; Protocol PRN Reason: Hypoglycemia Protocol Lactated Ringer's (Lactated Ringer's) 1,000 mls @ 80 mls/hr IV .[id number] [facility] Last Admin: 08/12/18 03:43 Dose: Not Given Clindamycin Phosphate 600 mg/ (Sodium Chloride) 104 mls @ 104 mls/hr IVPB Q8 [facility] PRN Reason: Protocol Last Admin: 08/12/18 08:46 Dose: 104 mls/hr Ceftriaxone Sodium 2 gm/ (Sodium Chloride) 100 mls @ 100 mls/hr IVPB DAILY [facility] PRN Reason: Protocol Last Admin: 08/12/18 08:55 Dose: 100 mls/hr Insulin Detemir (Levemir) 15 units SC HS [facility] Last Admin: 08/11/18 22:30 Dose: 15 u Insulin Human Regular (Humulin R) 0 units SC ACHS [facility] PRN Reason: Protocol Last Admin: 08/12/18 07:30 Dose: Not Given Insulin Lispro Protam/Lispro Human (Humalog Mix 75/25) 7 units SC Q12@0700, 1900 [facility] Last Admin: 08/12/18 08:59 Dose: 7 units Lidocaine (Lidoderm) 1 ea TD DAILY [facility] Last Admin: 08/12/18 08:52 Dose: 1 ea Nystatin (Mycostatin Cream) 1 applic TOP BID [facility] Last Admin: 08/11/18 16:31 Dose: 1 applic Oxycodone/Acetaminophen (Percocet 5/325 Mg Tab) 2 tab PO Q4 PRN PRN Reason: Pain, moderate (4-7) Stop: 08/14/18 17:41 Last Admin: 08/12/18 10:28 Dose: 2 tab Potassium Chloride (K-Dur 20 Meq Er Tab) 20 meq PO BID [facility] Last Admin: 08/12/18 08:52 Dose: 20 meq Multivit/Folic Acid/Iron () 1 tab PO DAILY [facility] Last Admin: 08/12/18 08:55 Dose: 1 tab Terconazole (Terazol 7 (0.4%)Cream) 1 applic VG HS [facility] Stop: 08/16/18 22:01 Last Admin: 08/12/18 03:45 Dose: Not Given - Labs Labs: 08/12/18 06:10 08/11/18 05:25 PT 12.7 Seconds (9.8-13.1) 07/28/18 16:15 INR 1.1 07/28/18 16:15 APTT 28.9 Seconds (25.6-37.1) 07/28/18 16:15 - Additional Findings Additional findings: - Constitutional Appears: Non-toxic, No Acute Distress - Head Exam Head Exam: ATRAUMATIC, NORMOCEPHALIC - Eye Exam Eye Exam: Normal Appearance. - Respiratory Exam Respiratory Exam: NORMAL BREATHING PATTERN - Cardiovascular Exam Cardiovascular Exam: RRR, +S1, +S2 - GI/Abdominal Exam GI & Abdominal Exam: Soft. absent: Distended, Tenderness - Rectal Exam Additional comments: L gluteus: erythema improving, still TTP, fibrinous exudate in wound beds, purulent drainage - Neurological Exam Neurological Exam: Alert, Awake, Oriented x3 - Skin Skin Exam: Dry, Warm erythema improving posteriorly, some drainage note, new discoloration in groin Assessment and Plan - Assessment and Plan (Free Text) Assessment: 33F s/p left gluteal abscess I & D POD#8 Plan: -IV abx for 2 more weeks -TCU evaluation -Pain management, wean off -Daily irrigation with peroxide/saline, May change dressing as needed -Encourage OOB to chair/Ambulation/IS -Antifungal yeast infection -Further recommendations as per Dr. Lele Munroe PGY2
--- NOTE | 2018-08-12 16:33 | CP.PCM.PN ---
<Candido Buck - Last Filed: 08/12/18 16:29> Subjective - Date & Time of Evaluation Date of Evaluation: 08/12/18 Time of Evaluation: 11:45 - Subjective Subjective: Pt seen and examined at bedside with Dr. Xie. Pt resting comfortably in bed. tolerating PO diet. Reports vaginal discomfort. reports improvement of gluteal cellulitis. Objective - Vital Signs/Intake and Output Vital Signs (last 24 hours): Temp Pulse Resp BP Pulse Ox 97.8 F 86 18 111/72 96 08/12/18 16:24 08/12/18 16:24 08/12/18 16:24 08/12/18 16:24 08/12/18 16:24 - Medications Medications: Current Medications Acetaminophen (Tylenol 325mg Tab) 650 mg PO Q6 PRN PRN Reason: Fever >100.4 F Last Admin: 07/30/18 20:17 Dose: 650 mg Dextrose (Dextrose 50% Inj) 0 ml IV STAT PRN; Protocol PRN Reason: Hypoglycemia Protocol Dextrose (Glutose 15) 0 gm PO ONCE PRN; Protocol PRN Reason: Hypoglycemia Protocol Docusate Sodium (Colace) 100 mg PO BID [facility] Last Admin: 08/12/18 16:07 Dose: 100 mg Enoxaparin Sodium (Lovenox) 40 mg SC Q12 [facility] PRN Reason: Protocol Last Admin: 08/03/18 21:37 Dose: 40 mg Glucagon (Glucagen Diagnostic Kit) 0 mg IM STAT PRN; Protocol PRN Reason: Hypoglycemia Protocol Lactated Ringer's (Lactated Ringer's) 1,000 mls @ 80 mls/hr IV .[id number] [facility] Last Admin: 08/12/18 03:43 Dose: Not Given Clindamycin Phosphate 600 mg/ (Sodium Chloride) 104 mls @ 104 mls/hr IVPB Q8 [facility] PRN Reason: Protocol Last Admin: 08/12/18 16:14 Dose: 104 mls/hr Ceftriaxone Sodium 2 gm/ (Sodium Chloride) 100 mls @ 100 mls/hr IVPB DAILY [facility] PRN Reason: Protocol Last Admin: 08/12/18 08:55 Dose: 100 mls/hr Insulin Detemir (Levemir) 15 units SC HS [facility] Last Admin: 08/11/18 22:30 Dose: 15 u Insulin Human Regular (Humulin R) 0 units SC ACHS [facility] PRN Reason: Protocol Last Admin: 08/12/18 16:13 Dose: 1 units Insulin Lispro Protam/Lispro Human (Humalog Mix 75/25) 7 units SC Q12@0700, 1900 [facility] Last Admin: 08/12/18 08:59 Dose: 7 units Lidocaine (Lidoderm) 1 ea TD DAILY [facility] Last Admin: 08/12/18 08:52 Dose: 1 ea Nystatin (Mycostatin Cream) 1 applic TOP BID [facility] Last Admin: 08/12/18 16:10 Dose: 1 applic Oxycodone/Acetaminophen (Percocet 5/325 Mg Tab) 2 tab PO Q4 PRN PRN Reason: Pain, moderate (4-7) Stop: 08/14/18 17:41 Last Admin: 08/12/18 16:05 Dose: 2 tab Potassium Chloride (K-Dur 20 Meq Er Tab) 20 meq PO BID [facility] Last Admin: 08/12/18 16:07 Dose: 20 meq Multivit/Folic Acid/Iron () 1 tab PO DAILY [facility] Last Admin: 08/12/18 08:55 Dose: 1 tab Terconazole (Terazol 7 (0.4%)Cream) 1 applic VG HS [facility] Stop: 08/16/18 22:01 Last Admin: 08/12/18 03:45 Dose: Not Given - Labs Labs: 08/12/18 06:10 08/11/18 05:25 PT 12.7 Seconds (9.8-13.1) 07/28/18 16:15 INR 1.1 07/28/18 16:15 APTT 28.9 Seconds (25.6-37.1) 07/28/18 16:15 - Constitutional Appears: No Acute Distress - Eye Exam Eye Exam: EOMI - Respiratory Exam Respiratory Exam: NORMAL BREATHING PATTERN - Cardiovascular Exam Cardiovascular Exam: +S1, +S2 - Neurological Exam Neurological Exam: Alert, Awake, CN II-XII Intact, Oriented x3 - Psychiatric Exam Psychiatric exam: Normal Affect, Normal Mood Assessment and Plan (1) Vaginal yeast infection Status: Acute (2) Cellulitis and abscess of buttock Status: Acute (3) Morbid (severe) obesity due to excess calories Status: Acute (4) Status: Acute - Assessment and Plan (Free Text) Plan: Surgery: on board ID: Dr. Fraga: on board Continue IV abx Continue treatment/care plan as ordered candido buck md pgy2 <Sterling Xie - Last Filed: 08/13/18 17:02> Objective - Vital Signs/Intake and Output Vital Signs (last 24 hours): Temp Pulse Resp BP Pulse Ox 97.7 F 77 18 115/73 97 08/13/18 16:25 08/13/18 16:25 08/13/18 16:25 08/13/18 16:25 08/13/18 16:25 - Medications Medications: Current Medications Acetaminophen (Tylenol 325mg Tab) 650 mg PO Q6 PRN PRN Reason: Fever >100.4 F Last Admin: 07/30/18 20:17 Dose: 650 mg Betamethasone Dipropion Augmented (Diprolene Af) 1 gm TOP BID [facility] Last Admin: 08/13/18 16:20 Dose: 1 appl Clotrimazole (Lotrimin 1% Vaginal) 1 applic VG [facility] Dextrose (Dextrose 50% Inj) 0 ml IV STAT PRN; Protocol PRN Reason: Hypoglycemia Protocol Dextrose (Glutose 15) 0 gm PO ONCE PRN; Protocol PRN Reason: Hypoglycemia Protocol Docusate Sodium (Colace) 100 mg PO BID [facility] Last Admin: 08/13/18 16:17 Dose: 100 mg Enoxaparin Sodium (Lovenox) 40 mg SC Q12 [facility] PRN Reason: Protocol Last Admin: 08/03/18 21:37 Dose: 40 mg Glucagon (Glucagen Diagnostic Kit) 0 mg IM STAT PRN; Protocol PRN Reason: Hypoglycemia Protocol Lactated Ringer's (Lactated Ringer's) 1,000 mls @ 80 mls/hr IV .[id number] [facility] Last Admin: 08/12/18 03:43 Dose: Not Given Clindamycin Phosphate 600 mg/ (Sodium Chloride) 104 mls @ 104 mls/hr IVPB Q8 [facility] PRN Reason: Protocol Last Admin: 08/13/18 16:12 Dose: 104 mls/hr Ceftriaxone Sodium 2 gm/ (Sodium Chloride) 100 mls @ 100 mls/hr IVPB DAILY [facility] PRN Reason: Protocol Last Admin: 08/13/18 08:30 Dose: 100 mls/hr Insulin Detemir (Levemir) 15 units SC [facility] Last Admin: 08/12/18 22:15 Dose: 15 u Insulin Human Regular (Humulin R) 0 units SC ACHS [facility] PRN Reason: Protocol Last Admin: 08/13/18 16:36 Dose: 1 units Insulin Lispro Protam/Lispro Human (Humalog Mix 75/25) 7 units SC Q12@0700, 1900 [facility] Last Admin: 08/13/18 08:22 Dose: 7 units Lidocaine (Lidoderm) 1 ea TD DAILY [facility] Last Admin: 08/13/18 08:23 Dose: 1 ea Nystatin (Mycostatin Cream) 1 applic TOP BID [facility] Last Admin: 08/13/18 16:21 Dose: 1 applic Oxycodone/Acetaminophen (Percocet 5/325 Mg Tab) 2 tab PO Q4 PRN PRN Reason: Pain, moderate (4-7) Stop: 08/14/18 17:41 Last Admin: 08/13/18 14:30 Dose: 2 tab Potassium Chloride (K-Dur 20 Meq Er Tab) 20 meq PO BID [facility] Last Admin: 08/13/18 16:21 Dose: 20 meq Multivit/Folic Acid/Iron () 1 tab PO DAILY [facility] Last Admin: 08/13/18 08:35 Dose: 1 tab Terconazole (Terazol 7 (0.4%)Cream) 1 applic VG HS [facility] Stop: 08/16/18 22:01 Last Admin: 08/12/18 22:24 Dose: Not Given - Labs Labs: 08/13/18 05:50 08/13/18 05:50 PT 12.7 Seconds (9.8-13.1) 07/28/18 16:15 INR 1.1 07/28/18 16:15 APTT 28.9 Seconds (25.6-37.1) 07/28/18 16:15 Assessment and Plan (1) Cellulitis and abscess of buttock Status: Acute (2) Diabetes mellitus type 2 in obese Status: Resolved (3) Status: Acute (4) Morbid (severe) obesity due to excess calories Status: Acute - Assessment and Plan (Free Text) Plan: I was present during evaluation and discussed with Dr Cielo swan plans of care and mgt. will add Clotrimazole and betamethasone for vaginitis sx. Sterling Xie M.D.
[2018-08-12] MEDS: Insulin Detemir 100 Units/ml Inj SC SCH (22:15)
[2018-08-13] MEDS: Clindamycin 600 MG in Sodium Chloride 0.9% 100 ML IVPB SCH ×3 (00:56→16:12)
[2018-08-13] MEDS: Oxycodone/Acetaminophen 5/325 mg Tab PO PRN ×4 (03:46→20:29)
[2018-08-13 06:32] LABS: HEMOGLOBIN 10.3 g/dL (12.0-16.0); MEAN CELL VOLUME 88.3 fl (81.0-99.0); MEAN CORPUSCULAR HEMOGLOBIN 29.9 pg (27.0-31.0); MEAN CORPUSCULAR HGB CONC 33.9 g/dL (33.0-37.0); RBC 3.44 Mil/uL (3.80-5.20); RED CELL DISTRIBUTION WIDTH 13.8 % (11.5-14.5); WHITE BLOOD COUNT 13.8 K/uL (4.8-10.8)
[2018-08-13 07:01] LABS: BLOOD UREA NITROGEN 10 mg/dl (7-17); CALCIUM 9.3 mg/dL (8.4-10.2); GFR NON-AFRICAN AMERICAN > 60
[2018-08-13] MEDS: Insulin Regular 100 units/ml SC SCH ×4 (07:39→22:00)
--- NOTE | 2018-08-13 08:16 | CP.PCM.PN ---
Subjective - Date & Time of Evaluation Date of Evaluation: 08/13/18 Time of Evaluation: 07:20 - Subjective Subjective: General Surgery Patient seen and examined. No acute event overnight. Still with pain on sitting , but tolerable. Denies fever/chills. Objective - Vital Signs/Intake and Output Vital Signs (last 24 hours): Temp Pulse Resp BP Pulse Ox 98 F 82 18 109/69 98 08/13/18 00:27 08/13/18 00:27 08/13/18 00:27 08/13/18 00:27 08/13/18 00:27 - Medications Medications: Current Medications Acetaminophen (Tylenol 325mg Tab) 650 mg PO Q6 PRN PRN Reason: Fever >100.4 F Last Admin: 07/30/18 20:17 Dose: 650 mg Dextrose (Dextrose 50% Inj) 0 ml IV STAT PRN; Protocol PRN Reason: Hypoglycemia Protocol Dextrose (Glutose 15) 0 gm PO ONCE PRN; Protocol PRN Reason: Hypoglycemia Protocol Docusate Sodium (Colace) 100 mg PO BID [facility] Last Admin: 08/12/18 16:07 Dose: 100 mg Enoxaparin Sodium (Lovenox) 40 mg SC Q12 [facility] PRN Reason: Protocol Last Admin: 08/03/18 21:37 Dose: 40 mg Glucagon (Glucagen Diagnostic Kit) 0 mg IM STAT PRN; Protocol PRN Reason: Hypoglycemia Protocol Lactated Ringer's (Lactated Ringer's) 1,000 mls @ 80 mls/hr IV .[id number] [facility] Last Admin: 08/12/18 03:43 Dose: Not Given Clindamycin Phosphate 600 mg/ (Sodium Chloride) 104 mls @ 104 mls/hr IVPB Q8 [facility] PRN Reason: Protocol Last Admin: 08/13/18 00:56 Dose: 104 mls/hr Ceftriaxone Sodium 2 gm/ (Sodium Chloride) 100 mls @ 100 mls/hr IVPB DAILY [facility] PRN Reason: Protocol Last Admin: 08/12/18 08:55 Dose: 100 mls/hr Insulin Detemir (Levemir) 15 units SC HS [facility] Last Admin: 08/12/18 22:15 Dose: 15 u Insulin Human Regular (Humulin R) 0 units SC ACHS [facility] PRN Reason: Protocol Last Admin: 08/12/18 22:23 Dose: Not Given Insulin Lispro Protam/Lispro Human (Humalog Mix 75/25) 7 units SC Q12@0700, 1900 [facility] Last Admin: 08/12/18 18:34 Dose: 7 units Lidocaine (Lidoderm) 1 ea TD DAILY [facility] Last Admin: 08/12/18 08:52 Dose: 1 ea Nystatin (Mycostatin Cream) 1 applic TOP BID [facility] Last Admin: 08/12/18 16:10 Dose: 1 applic Oxycodone/Acetaminophen (Percocet 5/325 Mg Tab) 2 tab PO Q4 PRN PRN Reason: Pain, moderate (4-7) Stop: 08/14/18 17:41 Last Admin: 08/13/18 03:46 Dose: 2 tab Potassium Chloride (K-Dur 20 Meq Er Tab) 20 meq PO BID [facility] Last Admin: 08/12/18 16:07 Dose: 20 meq Multivit/Folic Acid/Iron () 1 tab PO DAILY [facility] Last Admin: 08/12/18 08:55 Dose: 1 tab Terconazole (Terazol 7 (0.4%)Cream) 1 applic VG HS [facility] Stop: 08/16/18 22:01 Last Admin: 08/12/18 22:24 Dose: Not Given - Labs Labs: 08/13/18 05:50 08/13/18 05:50 PT 12.7 Seconds (9.8-13.1) 07/28/18 16:15 INR 1.1 07/28/18 16:15 APTT 28.9 Seconds (25.6-37.1) 07/28/18 16:15 - Constitutional Appears: Non-toxic, No Acute Distress - Head Exam Head Exam: ATRAUMATIC, NORMOCEPHALIC - Eye Exam Eye Exam: EOMI. absent: Scleral icterus - Respiratory Exam Respiratory Exam: Respiratory Distress. absent: NORMAL BREATHING PATTERN - Cardiovascular Exam Cardiovascular Exam: RRR, +S1, +S2 - GI/Abdominal Exam GI & Abdominal Exam: Soft. absent: Distended, Tenderness - Rectal Exam Additional comments: L gluteus: erythema improving, still TTP, fibrinous exudate in wound beds, some purulent drainage - Extremities Exam Extremities Exam: absent: Calf Tenderness, Pedal Edema - Neurological Exam Neurological Exam: Alert, Awake, Oriented x3 - Skin Skin Exam: Dry, Warm Assessment and Plan - Assessment and Plan (Free Text) Assessment: 33F s/p left gluteal abscess I & D POD#9 Plan: -IV abx per ID -F/U TCU evaluation -Pain management, wean off -Nursing can continue daily irrigation with peroxide/saline, change dressing as needed -Encourage OOB to chair/Ambulation/IS -Antifungal yeast infection D/W Dr. Lele Eduardo PGY4
[2018-08-13] MEDS: Insulin Lispro Mix 75/25 100 units/ml (HumaLog) 10ml SC SCH ×2 (08:22→18:56)
[2018-08-13] MEDS: Lidocaine 5% Patch TD SCH (08:23)
[2018-08-13] MEDS: cefTRIAXone 2 GM in Sodium Chloride 0.9% 100 ML IVPB SCH (08:30)
[2018-08-13] MEDS: Potassium Chloride 20 mEq ER Tab PO SCH ×2 (08:35→16:21)
[2018-08-13] MEDS: Prenatal Multivit/Folic Acid/Iron Tab PO SCH (08:35)
[2018-08-13 16:01] LABS: SQUAMOUS EPITHIAL 3 /hpf (0-5); URINE BACTERIA RARE (<OCC); URINE BILIRUBIN NEGATIVE (NEGATIVE); URINE BLOOD NEGATIVE (NEGATIVE); URINE CLARITY CLOUDY (Clear); URINE COLOR YELLOW (YELLOW); URINE GLUCOSE (UA) NEG (Normal); URINE LEUKOCYTE ESTERASE LARGE Leu/uL (Negative); URINE PROTEIN NEGATIVE (NEGATIVE); URINE UROBILINOGEN 0.2-1.0 mg/dL (0.2-1.0)
[2018-08-13] MEDS: Betamethasone Dip 0.05% Cream(15 gm) TOP SCH (16:20)
--- NOTE | 2018-08-13 17:06 | CP.PCM.PN ---
Subjective - Date & Time of Evaluation Date of Evaluation: 08/13/18 Time of Evaluation: 12:25 - Subjective Subjective: Patient has less pain in the buttock area. Has no fever. Has no chest pain or SOB Complains of persistent vaginal discomfort jessica in the urethral area during micturation. Urine C and S showed mult colonies Objective - Vital Signs/Intake and Output Vital Signs (last 24 hours): Temp Pulse Resp BP Pulse Ox 97.7 F 77 18 115/73 97 08/13/18 16:25 08/13/18 16:25 08/13/18 16:25 08/13/18 16:25 08/13/18 16:25 - Medications Medications: Current Medications Acetaminophen (Tylenol 325mg Tab) 650 mg PO Q6 PRN PRN Reason: Fever >100.4 F Last Admin: 07/30/18 20:17 Dose: 650 mg Betamethasone Dipropion Augmented (Diprolene Af) 1 gm TOP BID [facility] Last Admin: 08/13/18 16:20 Dose: 1 appl Clotrimazole (Lotrimin 1% Vaginal) 1 applic VG HS [facility] Dextrose (Dextrose 50% Inj) 0 ml IV STAT PRN; Protocol PRN Reason: Hypoglycemia Protocol Dextrose (Glutose 15) 0 gm PO ONCE PRN; Protocol PRN Reason: Hypoglycemia Protocol Docusate Sodium (Colace) 100 mg PO BID [facility] Last Admin: 08/13/18 16:17 Dose: 100 mg Enoxaparin Sodium (Lovenox) 40 mg SC Q12 [facility] PRN Reason: Protocol Last Admin: 08/03/18 21:37 Dose: 40 mg Glucagon (Glucagen Diagnostic Kit) 0 mg IM STAT PRN; Protocol PRN Reason: Hypoglycemia Protocol Lactated Ringer's (Lactated Ringer's) 1,000 mls @ 80 mls/hr IV .[id number] [facility] Last Admin: 08/12/18 03:43 Dose: Not Given Clindamycin Phosphate 600 mg/ (Sodium Chloride) 104 mls @ 104 mls/hr IVPB Q8 [facility] PRN Reason: Protocol Last Admin: 08/13/18 16:12 Dose: 104 mls/hr Ceftriaxone Sodium 2 gm/ (Sodium Chloride) 100 mls @ 100 mls/hr IVPB DAILY [facility] PRN Reason: Protocol Last Admin: 08/13/18 08:30 Dose: 100 mls/hr Insulin Detemir (Levemir) 15 units SC HS [facility] Last Admin: 08/12/18 22:15 Dose: 15 u Insulin Human Regular (Humulin R) 0 units SC ACHS [facility] PRN Reason: Protocol Last Admin: 08/13/18 16:36 Dose: 1 units Insulin Lispro Protam/Lispro Human (Humalog Mix 75/25) 7 units SC Q12@0700, 1900 [facility] Last Admin: 08/13/18 08:22 Dose: 7 units Lidocaine (Lidoderm) 1 ea TD DAILY [facility] Last Admin: 08/13/18 08:23 Dose: 1 ea Nystatin (Mycostatin Cream) 1 applic TOP BID [facility] Last Admin: 08/13/18 16:21 Dose: 1 applic Oxycodone/Acetaminophen (Percocet 5/325 Mg Tab) 2 tab PO Q4 PRN PRN Reason: Pain, moderate (4-7) Stop: 08/14/18 17:41 Last Admin: 08/13/18 14:30 Dose: 2 tab Potassium Chloride (K-Dur 20 Meq Er Tab) 20 meq PO BID [facility] Last Admin: 08/13/18 16:21 Dose: 20 meq Multivit/Folic Acid/Iron () 1 tab PO DAILY [facility] Last Admin: 08/13/18 08:35 Dose: 1 tab Terconazole (Terazol 7 (0.4%)Cream) 1 applic VG [facility] Stop: 08/16/18 22:01 Last Admin: 08/12/18 22:24 Dose: Not Given - Labs Labs: 08/13/18 05:50 08/13/18 05:50 PT 12.7 Seconds (9.8-13.1) 07/28/18 16:15 INR 1.1 07/28/18 16:15 APTT 28.9 Seconds (25.6-37.1) 07/28/18 16:15 - Head Exam Head Exam: NORMAL INSPECTION - Eye Exam Eye Exam: Normal appearance - Respiratory Exam Respiratory Exam: NORMAL BREATHING PATTERN - Neurological Exam Neurological Exam: CN II-XII Intact, Oriented x3 Assessment and Plan (1) Cellulitis and abscess of buttock Status: Acute (2) Diabetes mellitus type 2 in obese Status: Resolved (3) Status: Acute (4) Morbid (severe) obesity due to excess calories Status: Acute (5) Urethritis Status: Acute (6) Vaginitis Status: Acute - Assessment and Plan (Free Text) Plan: start clotrimazole and betamethasone cont meds cont tx. cont wound care will maintain iv antibiotics for another 7 days as per ID if ok with insurance if not will do LTAC or continued iv antibioics as SNF level.
[2018-08-13] MEDS: Insulin Detemir 100 Units/ml Inj SC SCH (22:30)
[2018-08-13] MEDS: Terconazole 7 cream 45gm VG SCH (22:34)
[2018-08-14] MEDS: Clindamycin 600 MG in Sodium Chloride 0.9% 100 ML IVPB SCH ×3 (00:39→17:37)
[2018-08-14] MEDS: Oxycodone/Acetaminophen 5/325 mg Tab PO PRN ×4 (00:43→17:45)
[2018-08-14] MEDS: Insulin Lispro Mix 75/25 100 units/ml (HumaLog) 10ml SC SCH ×2 (06:45→17:59)
[2018-08-14] MEDS: Insulin Regular 100 units/ml SC SCH ×4 (07:02→22:11)
[2018-08-14] MEDS: Betamethasone Dip 0.05% Cream(15 gm) TOP SCH ×3 (08:24→17:40)
[2018-08-14] MEDS: Potassium Chloride 20 mEq ER Tab PO SCH ×2 (08:25→17:41)
[2018-08-14] MEDS: Lidocaine 5% Patch TD SCH (08:25)
[2018-08-14] MEDS: Prenatal Multivit/Folic Acid/Iron Tab PO SCH (08:27)
[2018-08-14] MEDS: cefTRIAXone 2 GM in Sodium Chloride 0.9% 100 ML IVPB SCH (08:27)
[2018-08-14] MEDS ORDERED: Hydrogen Peroxide 3% Soln (480ml) TP ONE (12:26)
[2018-08-14] MEDS ORDERED: Oxycodone/Acetaminophen 5/325 mg Tab PO PRN (18:51)
--- NOTE | 2018-08-14 18:56 | CP.PCM.PN ---
<Candido Buck - Last Filed: 08/14/18 18:54> Subjective - Date & Time of Evaluation Date of Evaluation: 08/14/18 Time of Evaluation: 11:00 - Subjective Subjective: Pt seen and evaluated at bedside with Dr. Xie Denied acute overnight events. Reports improvement in symptoms. Objective - Vital Signs/Intake and Output Vital Signs (last 24 hours): Temp Pulse Resp BP Pulse Ox 97.6 F 82 20 125/80 99 08/14/18 16:47 08/14/18 16:47 08/14/18 16:47 08/14/18 16:47 08/14/18 16:47 - Medications Medications: Current Medications Acetaminophen (Tylenol 325mg Tab) 650 mg PO Q6 PRN PRN Reason: Fever >100.4 F Last Admin: 07/30/18 20:17 Dose: 650 mg Betamethasone Dipropion Augmented (Diprolene Af) 1 gm TOP BID [facility] Last Admin: 08/14/18 17:40 Dose: 1 appl Clotrimazole (Lotrimin 1% Vaginal) 1 applic VG [facility] Last Admin: 08/13/18 22:33 Dose: Not Given Dextrose (Dextrose 50% Inj) 0 ml IV STAT PRN; Protocol PRN Reason: Hypoglycemia Protocol Dextrose (Glutose 15) 0 gm PO ONCE PRN; Protocol PRN Reason: Hypoglycemia Protocol Docusate Sodium (Colace) 100 mg PO BID [facility] Last Admin: 08/14/18 17:41 Dose: 100 mg Enoxaparin Sodium (Lovenox) 40 mg SC Q12 [facility] PRN Reason: Protocol Last Admin: 08/03/18 21:37 Dose: 40 mg Glucagon (Glucagen Diagnostic Kit) 0 mg IM STAT PRN; Protocol PRN Reason: Hypoglycemia Protocol Clindamycin Phosphate 600 mg/ (Sodium Chloride) 104 mls @ 104 mls/hr IVPB Q8 [facility] PRN Reason: Protocol Last Admin: 08/14/18 17:37 Dose: 104 mls/hr Ceftriaxone Sodium 2 gm/ (Sodium Chloride) 100 mls @ 100 mls/hr IVPB DAILY [facility] PRN Reason: Protocol Last Admin: 08/14/18 08:27 Dose: 100 mls/hr Insulin Detemir (Levemir) 15 units SC [facility] Last Admin: 08/13/18 22:30 Dose: 15 u Insulin Human Regular (Humulin R) 0 units SC ACHS [facility] PRN Reason: Protocol Last Admin: 08/14/18 17:48 Dose: Not Given Insulin Lispro Protam/Lispro Human (Humalog Mix 75/25) 7 units SC Q12@0700, 1900 [facility] Last Admin: 08/14/18 17:59 Dose: 7 units Lidocaine (Lidoderm) 1 ea TD DAILY [facility] Last Admin: 08/14/18 08:25 Dose: 1 ea Nystatin (Mycostatin Cream) 1 applic TOP BID [facility] Last Admin: 08/14/18 18:18 Dose: 1 applic Oxycodone/Acetaminophen (Percocet 5/325 Mg Tab) 1 tab PO Q6 PRN PRN Reason: Pain, moderate (4-7) Stop: 08/17/18 18:52 Potassium Chloride (K-Dur 20 Meq Er Tab) 20 meq PO BID [facility] Last Admin: 08/14/18 17:41 Dose: 20 meq Multivit/Folic Acid/Iron () 1 tab PO DAILY [facility] Last Admin: 08/14/18 08:27 Dose: 1 tab Terconazole (Terazol 7 (0.4%)Cream) 1 applic VG HS [facility] Stop: 08/16/18 22:01 Last Admin: 08/13/18 22:34 Dose: Not Given - Labs Labs: 08/13/18 05:50 08/13/18 05:50 PT 12.7 Seconds (9.8-13.1) 07/28/18 16:15 INR 1.1 07/28/18 16:15 APTT 28.9 Seconds (25.6-37.1) 07/28/18 16:15 - Constitutional Appears: Non-toxic, No Acute Distress - Eye Exam Eye Exam: EOMI - Respiratory Exam Respiratory Exam: NORMAL BREATHING PATTERN - Cardiovascular Exam Cardiovascular Exam: +S1, +S2 - GI/Abdominal Exam GI & Abdominal Exam: Soft - Neurological Exam Neurological Exam: Alert, Awake, CN II-XII Intact, Oriented x3 - Psychiatric Exam Psychiatric exam: Normal Affect, Normal Mood Assessment and Plan (1) Vaginal yeast infection Status: Acute (2) Cellulitis and abscess of buttock Status: Acute (3) Morbid (severe) obesity due to excess calories Status: Acute (4) Status: Acute - Assessment and Plan (Free Text) Plan: Continue with treatment/care as ordered iv abx for 6 more days per ID Considering LTAC Continue with wound care. case dw Dr. Rojas Buck MD PGY2 <Sterling Xie - Last Filed: 08/17/18 08:37> Objective - Vital Signs/Intake and Output Vital Signs (last 24 hours): Temp Pulse Resp BP Pulse Ox 98 F 86 20 113/76 97 08/17/18 01:04 08/17/18 01:04 08/17/18 01:04 08/17/18 01:04 08/17/18 01:04 - Medications Medications: Current Medications Acetaminophen (Tylenol 325mg Tab) 650 mg PO Q6 PRN PRN Reason: Fever >100.4 F Last Admin: 07/30/18 20:17 Dose: 650 mg Betamethasone Dipropion Augmented (Diprolene Af) 1 gm TOP BID [facility] Last Admin: 08/16/18 16:23 Dose: 1 appl Clotrimazole (Lotrimin 1% Vaginal) 1 applic VG HS [facility] Last Admin: 08/16/18 21:27 Dose: 1 applic Dextrose (Dextrose 50% Inj) 0 ml IV STAT PRN; Protocol PRN Reason: Hypoglycemia Protocol Dextrose (Glutose 15) 0 gm PO ONCE PRN; Protocol PRN Reason: Hypoglycemia Protocol Enoxaparin Sodium (Lovenox) 40 mg SC Q12 [facility] PRN Reason: Protocol Last Admin: 08/03/18 21:37 Dose: 40 mg Glucagon (Glucagen Diagnostic Kit) 0 mg IM STAT PRN; Protocol PRN Reason: Hypoglycemia Protocol Hydromorphone HCl (Dilaudid) 1 mg IVP Q4 PRN PRN Reason: Pain, severe (8-10) Last Admin: 08/17/18 08:15 Dose: 1 mg Ceftriaxone Sodium 2 gm/ (Sodium Chloride) 100 mls @ 100 mls/hr IVPB DAILY [facility] PRN Reason: Protocol Last Admin: 08/16/18 10:01 Dose: 100 mls/hr Vancomycin HCl 1 gm/ Sodium (Chloride) 250 mls @ 166.667 mls/hr IVPB Q12 [facility] PRN Reason: Protocol Last Admin: 08/16/18 21:25 Dose: 166.667 mls/hr Potassium Chloride/Dextrose/Sod Cl (Potassium Chl 20 Meq In D5-1/2ns) 1,000 mls @ 125 mls/hr IV .Q8H [facility] Stop: 08/18/18 06:27 Insulin Detemir (Levemir) 15 units SC HS [facility] Last Admin: 08/16/18 21:26 Dose: 15 u Insulin Human Regular (Humulin R) 0 units SC ACHS [facility] PRN Reason: Protocol Last Admin: 08/16/18 22:30 Dose: Not Given Insulin Lispro Protam/Lispro Human (Humalog Mix 75/25) 7 units SC Q12@0700, 1900 [facility] Last Admin: 08/16/18 18:40 Dose: 7 units Lidocaine (Lidoderm) 1 ea TD DAILY [facility] Last Admin: 08/16/18 10:28 Dose: Not Given Lidocaine/Prilocaine (Lidocaine/Prilocaine 2.5%-2.5%) 1 applic TP ONCE PRN PRN Reason: Other Nystatin (Nystop Topical Powder) 1 applic TOP TID [facility] Last Admin: 08/16/18 16:24 Dose: 1 applic Oxycodone/Acetaminophen (Percocet 5/325 Mg Tab) 1 tab PO Q6 PRN PRN Reason: Pain, moderate (4-7) Stop: 08/17/18 18:52 Last Admin: 08/14/18 22:06 Dose: 1 tab Phenazopyridine HCl (Pyridium) 100 mg PO TID [facility] Last Admin: 08/16/18 16:24 Dose: 100 mg Multivit/Folic Acid/Iron () 1 tab PO DAILY [facility] Last Admin: 08/16/18 10:00 Dose: 1 tab - Labs Labs: 08/17/18 05:55 08/17/18 05:55 PT 11.7 Seconds (9.8-13.1) 08/17/18 05:55 INR 1.1 08/17/18 05:55 APTT 28.2 Seconds (25.6-37.1) 08/17/18 05:55 Assessment and Plan (1) Cellulitis and abscess of buttock Status: Acute (2) Diabetes mellitus type 2 in obese Status: Resolved (3) Status: Acute (4) Morbid (severe) obesity due to excess calories Status: Acute (5) Urethritis Status: Acute (6) Vaginitis Status: Acute - Assessment and Plan (Free Text) Plan: I was present during evaluation and discussed with Dr Buck re plans of care and tx. Will contoinue iv antibiotics follow up with Dr Fraga.
[2018-08-14] MEDS: Insulin Detemir 100 Units/ml Inj SC SCH (22:08)
[2018-08-14] MEDS: Terconazole 7 cream 45gm VG SCH (23:32)
[2018-08-15] MEDS: Clindamycin 600 MG in Sodium Chloride 0.9% 100 ML IVPB SCH ×2 (00:45→10:37)
[2018-08-15] MEDS: Insulin Lispro Mix 75/25 100 units/ml (HumaLog) 10ml SC SCH ×2 (06:41→19:12)
[2018-08-15] MEDS: Insulin Regular 100 units/ml SC SCH ×4 (07:30→22:30)
[2018-08-15 09:35] LABS: MEAN CELL VOLUME 88.7 fl (81.0-99.0); MEAN CORPUSCULAR HEMOGLOBIN 29.6 pg (27.0-31.0); MEAN CORPUSCULAR HGB CONC 33.4 g/dL (33.0-37.0); RBC 4.05 Mil/uL (3.80-5.20); WHITE BLOOD COUNT 23.3 K/uL (4.8-10.8)
[2018-08-15 09:43] LABS: BLOOD UREA NITROGEN 11 mg/dl (7-17); CALCIUM 9.2 mg/dL (8.4-10.2); GFR NON-AFRICAN AMERICAN > 60
[2018-08-15] MEDS: Betamethasone Dip 0.05% Cream(15 gm) TOP SCH ×4 (10:37→19:11)
[2018-08-15] MEDS: Lidocaine 5% Patch TD SCH (10:38)
[2018-08-15] MEDS: Potassium Chloride 20 mEq ER Tab PO SCH ×2 (10:38→17:20)
[2018-08-15] MEDS: Prenatal Multivit/Folic Acid/Iron Tab PO SCH ×2 (10:39→17:29)
[2018-08-15] MEDS: cefTRIAXone 2 GM in Sodium Chloride 0.9% 100 ML IVPB SCH ×2 (10:40→14:14)
--- NOTE | 2018-08-15 18:24 | CP.PCM.PN ---
Subjective - Date & Time of Evaluation Date of Evaluation: 08/15/18 Time of Evaluation: 18:13 - Subjective Subjective: I D NOTE PATIENTs wbc IS UP TO 23.3 AFEBRILE HAVE DISCONTINUED CLINDAMYCIN ANDSTARTED IV VANCOMYCIN CONSIDERING HER WEIGHT,,and CONTINUED SEVERITY OF INFECTION FEEL CHANGE IS NECESSARY. Objective - Vital Signs/Intake and Output Vital Signs (last 24 hours): Temp Pulse Resp BP Pulse Ox 98.1 F 81 18 117/74 97 08/15/18 16:14 08/15/18 16:14 08/15/18 16:14 08/15/18 16:14 08/15/18 16:14 - Medications Medications: Current Medications Acetaminophen (Tylenol 325mg Tab) 650 mg PO Q6 PRN PRN Reason: Fever >100.4 F Last Admin: 07/30/18 20:17 Dose: 650 mg Betamethasone Dipropion Augmented (Diprolene Af) 1 gm TOP BID [facility] Last Admin: 08/15/18 17:20 Dose: 1 appl Clotrimazole (Lotrimin 1% Vaginal) 1 applic VG [facility] Last Admin: 08/14/18 22:12 Dose: 1 applic Dextrose (Dextrose 50% Inj) 0 ml IV STAT PRN; Protocol PRN Reason: Hypoglycemia Protocol Dextrose (Glutose 15) 0 gm PO ONCE PRN; Protocol PRN Reason: Hypoglycemia Protocol Docusate Sodium (Colace) 100 mg PO BID [facility] Last Admin: 08/15/18 17:19 Dose: 100 mg Enoxaparin Sodium (Lovenox) 40 mg SC Q12 [facility] PRN Reason: Protocol Last Admin: 08/03/18 21:37 Dose: 40 mg Glucagon (Glucagen Diagnostic Kit) 0 mg IM STAT PRN; Protocol PRN Reason: Hypoglycemia Protocol Ceftriaxone Sodium 2 gm/ (Sodium Chloride) 100 mls @ 100 mls/hr IVPB DAILY [facility] PRN Reason: Protocol Last Admin: 08/15/18 14:14 Dose: 100 mls/hr Vancomycin HCl 1 gm/ Sodium (Chloride) 250 mls @ 166.667 mls/hr IVPB Q12 [facility] PRN Reason: Protocol Insulin Detemir (Levemir) 15 units SC [facility] Last Admin: 08/14/18 22:08 Dose: 15 u Insulin Human Regular (Humulin R) 0 units SC [facility] PRN Reason: Protocol Last Admin: 08/15/18 13:01 Dose: Not Given Insulin Lispro Protam/Lispro Human (Humalog Mix 75/25) 7 units SC Q12@0700, 1900 [facility] Last Admin: 08/15/18 06:41 Dose: 7 units Lidocaine (Lidoderm) 1 ea TD DAILY [facility] Last Admin: 08/15/18 10:38 Dose: Not Given Nystatin (Mycostatin Cream) 1 applic TOP BID [facility] Last Admin: 08/15/18 10:39 Dose: Not Given Oxycodone/Acetaminophen (Percocet 5/325 Mg Tab) 1 tab PO Q6 PRN PRN Reason: Pain, moderate (4-7) Stop: 08/17/18 18:52 Last Admin: 08/14/18 22:06 Dose: 1 tab Potassium Chloride (K-Dur 20 Meq Er Tab) 20 meq PO BID [facility] Last Admin: 08/15/18 17:20 Dose: 20 meq Multivit/Folic Acid/Iron () 1 tab PO DAILY [facility] Last Admin: 08/15/18 17:29 Dose: 1 tab Terconazole (Terazol 7 (0.4%)Cream) 1 applic VG HS [facility] Stop: 08/16/18 22:01 Last Admin: 08/14/18 23:32 Dose: Not Given - Labs Labs: 08/15/18 08:33 08/15/18 08:33 PT 12.7 Seconds (9.8-13.1) 07/28/18 16:15 INR 1.1 07/28/18 16:15 APTT 28.9 Seconds (25.6-37.1) 07/28/18 16:15
[2018-08-15] MEDS: Insulin Detemir 100 Units/ml Inj SC SCH (22:29)
[2018-08-15] MEDS: Terconazole 7 cream 45gm VG SCH ×2 (22:30)
[2018-08-16 06:23] LABS: BASO % 0.3 % (0.0-2.0); EOS % 0.2 % (0.0-4.0); HEMOGLOBIN 10.3 g/dL (12.0-16.0); LYMPH # 3.1 K/uL (1.0-4.3); LYMPH % 24.3 % (20.0-40.0); MEAN CELL VOLUME 88.1 fl (81.0-99.0); MEAN PLATELET VOLUME 8.5 fl (7.2-11.7); MONO # 0.7 K/uL (0.0-0.8); MONO % 5.6 % (0.0-10.0); NEUT # 8.9 K/uL (1.8-7.0); NEUT % 69.6 % (50.0-75.0); RBC 3.44 Mil/uL (3.80-5.20); RED CELL DISTRIBUTION WIDTH 14.2 % (11.5-14.5); WHITE BLOOD COUNT 12.8 K/uL (4.8-10.8)
[2018-08-16] MEDS: Lidocaine 5% Patch TD SCH ×2 (09:56→10:28)
[2018-08-16] MEDS: Potassium Chloride 20 mEq ER Tab PO SCH ×2 (09:57→16:24)
[2018-08-16] MEDS: Insulin Regular 100 units/ml SC SCH ×4 (09:58→22:30)
[2018-08-16] MEDS: Insulin Lispro Mix 75/25 100 units/ml (HumaLog) 10ml SC SCH ×2 (09:58→18:40)
[2018-08-16] MEDS: Prenatal Multivit/Folic Acid/Iron Tab PO SCH (10:00)
[2018-08-16] MEDS: cefTRIAXone 2 GM in Sodium Chloride 0.9% 100 ML IVPB SCH (10:01)
[2018-08-16] MEDS: Betamethasone Dip 0.05% Cream(15 gm) TOP SCH ×2 (10:12→16:23)
[2018-08-16] MEDS ORDERED: Lidocaine/Prilocaine CREAM 5GM TP PRN (11:44)
[2018-08-16] MEDS: Insulin Detemir 100 Units/ml Inj SC SCH (21:26)
[2018-08-16] MEDS: Terconazole 7 cream 45gm VG SCH (21:27)
[2018-08-17 06:24] LABS: BASO % 0.3 % (0.0-2.0); EOS % 0.1 % (0.0-4.0); HEMOGLOBIN 10.4 g/dL (12.0-16.0); LYMPH # 2.4 K/uL (1.0-4.3); LYMPH % 19.1 % (20.0-40.0); MEAN CELL VOLUME 88.2 fl (81.0-99.0); MEAN PLATELET VOLUME 8.7 fl (7.2-11.7); MONO # 0.7 K/uL (0.0-0.8); MONO % 5.2 % (0.0-10.0); NEUT # 9.6 K/uL (1.8-7.0); NEUT % 75.3 % (50.0-75.0); RBC 3.47 Mil/uL (3.80-5.20); WHITE BLOOD COUNT 12.8 K/uL (4.8-10.8)
[2018-08-17 06:41] LABS: INR 1.1; PROTHROMBIN TIME 11.7 Seconds (9.8-13.1)
[2018-08-17 06:43] LABS: BLOOD UREA NITROGEN 9 mg/dl (7-17); GFR NON-AFRICAN AMERICAN > 60; PARTIAL THROMBOPLASTIN TIME 28.2 Seconds (25.6-37.1)
[2018-08-17 06:44] LABS: ALBUMIN 3.1 g/dL (3.5-5.0); ALT/SGPT 59 U/L (9-52); AST/SGOT 47 U/L (14-36)
[2018-08-17] MEDS: Insulin Lispro Mix 75/25 100 units/ml (HumaLog) 10ml SC SCH ×2 (07:00→19:00)
[2018-08-17] MEDS: Potassium Ch 20mEq in D5-1/2NS 1,000 ML IV SCH ×3 (08:34→23:14)
[2018-08-17] MEDS: cefTRIAXone 2 GM in Sodium Chloride 0.9% 100 ML IVPB SCH (08:35)
--- NOTE | 2018-08-17 08:35 | CP.PCM.PN ---
Subjective - Date & Time of Evaluation Date of Evaluation: 08/17/18 Time of Evaluation: 07:00 - Subjective Subjective: General Surgery Patient seen and examined. No acute event overnight. Still with pain on sitting , tolerable. Complains of pain with urination. Denies fever/chills. Objective - Vital Signs/Intake and Output Vital Signs (last 24 hours): Temp Pulse Resp BP Pulse Ox 98 F 86 20 113/76 97 08/17/18 01:04 08/17/18 01:04 08/17/18 01:04 08/17/18 01:04 08/17/18 01:04 - Medications Medications: Current Medications Acetaminophen (Tylenol 325mg Tab) 650 mg PO Q6 PRN PRN Reason: Fever >100.4 F Last Admin: 07/30/18 20:17 Dose: 650 mg Betamethasone Dipropion Augmented (Diprolene Af) 1 gm TOP BID [facility] Last Admin: 08/16/18 16:23 Dose: 1 appl Clotrimazole (Lotrimin 1% Vaginal) 1 applic VG [facility] Last Admin: 08/16/18 21:27 Dose: 1 applic Dextrose (Dextrose 50% Inj) 0 ml IV STAT PRN; Protocol PRN Reason: Hypoglycemia Protocol Dextrose (Glutose 15) 0 gm PO ONCE PRN; Protocol PRN Reason: Hypoglycemia Protocol Enoxaparin Sodium (Lovenox) 40 mg SC Q12 [facility] PRN Reason: Protocol Last Admin: 08/03/18 21:37 Dose: 40 mg Glucagon (Glucagen Diagnostic Kit) 0 mg IM STAT PRN; Protocol PRN Reason: Hypoglycemia Protocol Hydromorphone HCl (Dilaudid) 1 mg IVP Q4 PRN PRN Reason: Pain, severe (8-10) Last Admin: 08/17/18 08:15 Dose: 1 mg Ceftriaxone Sodium 2 gm/ (Sodium Chloride) 100 mls @ 100 mls/hr IVPB DAILY [facility] PRN Reason: Protocol Last Admin: 08/16/18 10:01 Dose: 100 mls/hr Vancomycin HCl 1 gm/ Sodium (Chloride) 250 mls @ 166.667 mls/hr IVPB Q12 [facility] PRN Reason: Protocol Last Admin: 08/16/18 21:25 Dose: 166.667 mls/hr Potassium Chloride/Dextrose/Sod Cl (Potassium Chl 20 Meq In D5-1/2ns) 1,000 mls @ 125 mls/hr IV .Q8H [facility] Stop: 08/18/18 06:27 Insulin Detemir (Levemir) 15 units SC [facility] Last Admin: 08/16/18 21:26 Dose: 15 u Insulin Human Regular (Humulin R) 0 units SC [facility] PRN Reason: Protocol Last Admin: 08/16/18 22:30 Dose: Not Given Insulin Lispro Protam/Lispro Human (Humalog Mix 75/25) 7 units SC Q12@0700, 1900 [facility] Last Admin: 08/16/18 18:40 Dose: 7 units Lidocaine (Lidoderm) 1 ea TD DAILY [facility] Last Admin: 08/16/18 10:28 Dose: Not Given Lidocaine/Prilocaine (Lidocaine/Prilocaine 2.5%-2.5%) 1 applic TP ONCE PRN PRN Reason: Other Nystatin (Nystop Topical Powder) 1 applic TOP TID [facility] Last Admin: 08/16/18 16:24 Dose: 1 applic Oxycodone/Acetaminophen (Percocet 5/325 Mg Tab) 1 tab PO Q6 PRN PRN Reason: Pain, moderate (4-7) Stop: 08/17/18 18:52 Last Admin: 08/14/18 22:06 Dose: 1 tab Phenazopyridine HCl (Pyridium) 100 mg PO TID [facility] Last Admin: 08/16/18 16:24 Dose: 100 mg Multivit/Folic Acid/Iron () 1 tab PO DAILY [facility] Last Admin: 08/16/18 10:00 Dose: 1 tab - Labs Labs: 08/17/18 05:55 08/17/18 05:55 PT 11.7 Seconds (9.8-13.1) 08/17/18 05:55 INR 1.1 08/17/18 05:55 APTT 28.2 Seconds (25.6-37.1) 08/17/18 05:55 - Constitutional Appears: Non-toxic, No Acute Distress - Head Exam Head Exam: ATRAUMATIC, NORMOCEPHALIC - Eye Exam Eye Exam: EOMI. absent: Scleral icterus - Respiratory Exam Respiratory Exam: NORMAL BREATHING PATTERN. absent: Respiratory Distress - Cardiovascular Exam Cardiovascular Exam: RRR, +S1, +S2 - GI/Abdominal Exam GI & Abdominal Exam: Soft. absent: Distended, Tenderness - Rectal Exam Rectal Exam: Deferred Additional comments: L gluteus: erythema improved, still TTP, fibrinous exudate in wound beds, some purulent drainage - Extremities Exam Extremities Exam: absent: Calf Tenderness - Neurological Exam Neurological Exam: Alert, Awake, Oriented x3 - Skin Skin Exam: Dry, Warm Assessment and Plan - Assessment and Plan (Free Text) Assessment: 33F s/p left gluteal abscess I&D POD#10 Plan: -NPO, possible OR today for EUA, I&D -IVF, Lovenox held -IV abx per ID -Pain management, wean off -Nursing can continue daily irrigation with peroxide/saline, change dressing as needed -Encourage OOB to chair/Ambulation/IS D/W Dr. Lele Eduardo PGY4
--- NOTE | 2018-08-17 08:40 | CP.PCM.PN ---
Subjective - Date & Time of Evaluation Date of Evaluation: 08/16/18 Time of Evaluation: 14:00 - Subjective Subjective: Patient complains of persistent pain on the vaginal / vulvar and perineal area. Noted erythema around the area started on clotrimazole and betamethasone but continues to have pain jessica when urinating. Objective - Vital Signs/Intake and Output Vital Signs (last 24 hours): Temp Pulse Resp BP Pulse Ox 98 F 86 20 113/76 97 08/17/18 01:04 08/17/18 01:04 08/17/18 01:04 08/17/18 01:04 08/17/18 01:04 - Medications Medications: Current Medications Acetaminophen (Tylenol 325mg Tab) 650 mg PO Q6 PRN PRN Reason: Fever >100.4 F Last Admin: 07/30/18 20:17 Dose: 650 mg Betamethasone Dipropion Augmented (Diprolene Af) 1 gm TOP BID [facility] Last Admin: 08/16/18 16:23 Dose: 1 appl Clotrimazole (Lotrimin 1% Vaginal) 1 applic VG HS [facility] Last Admin: 08/16/18 21:27 Dose: 1 applic Dextrose (Dextrose 50% Inj) 0 ml IV STAT PRN; Protocol PRN Reason: Hypoglycemia Protocol Dextrose (Glutose 15) 0 gm PO ONCE PRN; Protocol PRN Reason: Hypoglycemia Protocol Enoxaparin Sodium (Lovenox) 40 mg SC Q12 [facility] PRN Reason: Protocol Last Admin: 08/03/18 21:37 Dose: 40 mg Glucagon (Glucagen Diagnostic Kit) 0 mg IM STAT PRN; Protocol PRN Reason: Hypoglycemia Protocol Hydromorphone HCl (Dilaudid) 1 mg IVP Q4 PRN PRN Reason: Pain, severe (8-10) Last Admin: 08/17/18 08:15 Dose: 1 mg Ceftriaxone Sodium 2 gm/ (Sodium Chloride) 100 mls @ 100 mls/hr IVPB DAILY [facility] PRN Reason: Protocol Last Admin: 08/16/18 10:01 Dose: 100 mls/hr Vancomycin HCl 1 gm/ Sodium (Chloride) 250 mls @ 166.667 mls/hr IVPB Q12 [facility] PRN Reason: Protocol Last Admin: 08/16/18 21:25 Dose: 166.667 mls/hr Potassium Chloride/Dextrose/Sod Cl (Potassium Chl 20 Meq In D5-1/2ns) 1,000 mls @ 125 mls/hr IV .Q8H [facility] Stop: 08/18/18 06:27 Insulin Detemir (Levemir) 15 units SC HS [facility] Last Admin: 08/16/18 21:26 Dose: 15 u Insulin Human Regular (Humulin R) 0 units SC ACHS [facility] PRN Reason: Protocol Last Admin: 08/16/18 22:30 Dose: Not Given Insulin Lispro Protam/Lispro Human (Humalog Mix 75/25) 7 units SC Q12@0700, 1900 [facility] Last Admin: 08/16/18 18:40 Dose: 7 units Lidocaine (Lidoderm) 1 ea TD DAILY [facility] Last Admin: 08/16/18 10:28 Dose: Not Given Lidocaine/Prilocaine (Lidocaine/Prilocaine 2.5%-2.5%) 1 applic TP ONCE PRN PRN Reason: Other Nystatin (Nystop Topical Powder) 1 applic TOP TID [facility] Last Admin: 08/16/18 16:24 Dose: 1 applic Oxycodone/Acetaminophen (Percocet 5/325 Mg Tab) 1 tab PO Q6 PRN PRN Reason: Pain, moderate (4-7) Stop: 08/17/18 18:52 Last Admin: 08/14/18 22:06 Dose: 1 tab Phenazopyridine HCl (Pyridium) 100 mg PO TID [facility] Last Admin: 08/16/18 16:24 Dose: 100 mg Multivit/Folic Acid/Iron () 1 tab PO DAILY [facility] Last Admin: 08/16/18 10:00 Dose: 1 tab - Labs Labs: 08/17/18 05:55 08/17/18 05:55 PT 11.7 Seconds (9.8-13.1) 08/17/18 05:55 INR 1.1 08/17/18 05:55 APTT 28.2 Seconds (25.6-37.1) 08/17/18 05:55 - Head Exam Head Exam: NORMAL INSPECTION - Eye Exam Eye Exam: Normal appearance, PERRL - ENT Exam ENT Exam: Mucous Membranes Moist - Respiratory Exam Respiratory Exam: Clear to Ausculation Bilateral - Cardiovascular Exam Cardiovascular Exam: REGULAR RHYTHM - GI/Abdominal Exam GI & Abdominal Exam: Normal Bowel Sounds - Skin Skin Exam: Rash Additional comments: perineal rash and redness around vaginal area. Assessment and Plan (1) Cellulitis and abscess of buttock Status: Acute (2) Diabetes mellitus type 2 in obese Status: Resolved (3) Status: Acute (4) Morbid (severe) obesity due to excess calories Status: Acute (5) Urethritis Status: Acute (6) Vaginitis Status: Acute - Assessment and Plan (Free Text) Plan: Cont meds for picc line cont meds.
[2018-08-17] MEDS: Betamethasone Dip 0.05% Cream(15 gm) TOP SCH ×2 (08:43→17:14)
[2018-08-17] MEDS: Insulin Regular 100 units/ml SC SCH ×4 (08:44→22:26)
[2018-08-17] MEDS: Prenatal Multivit/Folic Acid/Iron Tab PO SCH (08:45)
[2018-08-17] MEDS: Lidocaine 5% Patch TD SCH (08:45)
--- NOTE | 2018-08-17 11:28 | CP.PCM.PCO ---
Assessment/Plan - Assessment/Plan Assessment (Free Text): Discussed with Dr. Fraga, patient will require IV antibiotics until August 24, 2018 and continuation of IV abx will be based on how the wound is healing. Patient to continue to have daily irrigation of wound with saline/ peroxide with dressing change. Dr. Fraga will reassess wound. Will continue to monitor
[2018-08-17] MEDS ORDERED: Bacitracin Ointment 30 GM TUBE ONE (12:47)
[2018-08-17] MEDS ORDERED: Propofol 10 mg/ml Inj (20 ML) ONE (13:56)
[2018-08-17] MEDS ORDERED: Succinylcholine 200 mg/10 ml Inj IV ONE (14:00)
[2018-08-17] MEDS ORDERED: Lidocaine 1% 5ml Abboject ONE (14:00)
[2018-08-17] MEDS ORDERED: Lactated Ringer's 1,000 ML IV ONE (14:05)
--- NOTE | 2018-08-17 14:05 | US ---
Date of service: 08/17/2018 PROCEDURE: OB Pelvic Ultrasound HISTORY: Heart Rate ONLY COMPARISON: 08/10/2018. FINDINGS: CARDIAC ASSESSMENT:: Heart rate: 1058 bpm. FREE FLUID: None. OTHER FINDINGS: None. IMPRESSION: Calculated cardiac rate 158 beats per minute. Limitations of the current examination: Nondiagnostic study beyond calculation of cardiac rate. Study performed as requested.
[2018-08-17] MEDS ORDERED: Lidocaine 2% Jelly (5 ml) TOP ONE (14:12)
--- NOTE | 2018-08-17 15:00 | PCM.SURG1 ---
Surgeon's Initial Post Op Note - Surgeon's Notes Surgeon: Lele Broker Associate: PGY4 Type of Anesthesia: General Endo Pre-Operative Diagnosis: Perirectal abscess Operative Findings: see op note Post-Operative Diagnosis: Perirectal abscess Operation Performed: Exam under anesthesia, wound exploration, wound washout Specimen/Specimens Removed: N/A Estimated Blood Loss: EBL {In ML}: 5 Blood Products Given: N/A Drains Used: No Drains Post-Op Condition: Good Date of Surgery/Procedure: 08/17/18 Time of Surgery/Procedure: 14:00
--- NOTE | 2018-08-17 17:12 | US ---
Indication: Postop check OB , limited study Comparison: Limited OB ultrasound performed earlier the same day. Findings: heart rate 157 beats per minute. motion is detected. Impression: heart rate 157 beats per minute. Nondiagnostic study beyond calculation of the cardiac rate. Examination performed as requested.
[2018-08-17] MEDS: Insulin Detemir 100 Units/ml Inj SC SCH (22:23)
--- NOTE | 2018-08-18 01:08 | OP ---
PROCEDURE DATE: 08/17/2018 PREOPERATIVE DIAGNOSIS: Perirectal abscess. POSTOPERATIVE DIAGNOSIS: Perirectal abscess. SURGEON: Alejandro Royal MD ENGINEERING TECHNICAL SPECIALIST: Jose David Eduardo DO, PGY-4 ANESTHESIA: General endotracheal. BLOOD LOSS: 5 mL. DRAINS: None. COMPLICATIONS: None. DESCRIPTION OF PROCEDURE: This is a 33-year-old female with multiple perirectal and gluteal abscesses, who was brought into the operating room general endotracheal anesthesia was induced and placed in lithotomy position. The patient was then examined. No erythema was seen. No pockets of pus or fluid were found. No pus was able to be expressed. The rectum was examined by digital rectal exam and through the wounds. No connection was palpable. After the initial examination, it was determined that there was no further abscess that needed drainage. So, no further incisions were made. We then proceeded to wash out the wounds using a red rubber catheter and hydrogen peroxide to irrigate deep inside wounds. After irrigating using approximately 200 mL of hydrogen peroxide, the wounds were then re-probed looking for any loculations or pockets of fluid that could be opened or drained, and again none were found. Another 100 mL of hydrogen peroxide was used to wash the wounds. Then, the L gluteus area was rinsed with sterile saline, and a dry dressing was applied. The patient tolerated the procedure well. All counts were correct as confirmed by the nursing staff at the end of the case. The patient was taken to PACU in stable condition. Jose David Eduardo DO Alejandro Royal MD [place]
[2018-08-18] MEDS: Insulin Lispro Mix 75/25 100 units/ml (HumaLog) 10ml SC SCH ×2 (07:05→21:08)
--- NOTE | 2018-08-18 07:38 | CP.PCM.PN ---
Subjective - Date & Time of Evaluation Date of Evaluation: 08/18/18 Time of Evaluation: 07:15 - Subjective Subjective: General Surgery Note for Dr. Royal Patient seen and examined at bedside. No acute event overnight. Patient went to OR yesterday for wound exploration. The wounds are healing appropriately without any new collections. Patient complaining of pain. She is tolerating diet. Admits to flatus and BM. Denies fever/chills. Objective - Vital Signs/Intake and Output Vital Signs (last 24 hours): Temp Pulse Resp BP Pulse Ox 98.8 F 81 19 120/72 97 08/18/18 00:01 08/18/18 00:01 08/18/18 00:01 08/18/18 00:01 08/18/18 00:01 - Medications Medications: Current Medications Acetaminophen (Tylenol 325mg Tab) 650 mg PO Q6 PRN PRN Reason: Fever >100.4 F Last Admin: 07/30/18 20:17 Dose: 650 mg Betamethasone Dipropion Augmented (Diprolene Af) 1 gm TOP BID [facility] Last Admin: 08/17/18 17:14 Dose: Not Given Clotrimazole (Lotrimin 1% Vaginal) 1 applic VG HS [facility] Last Admin: 08/17/18 23:35 Dose: Not Given Dextrose (Dextrose 50% Inj) 0 ml IV STAT PRN; Protocol PRN Reason: Hypoglycemia Protocol Dextrose (Glutose 15) 0 gm PO ONCE PRN; Protocol PRN Reason: Hypoglycemia Protocol Diphenhydramine HCl (Benadryl) 25 mg PO ONCE PRN PRN Reason: Itching / Pruritus Last Admin: 08/17/18 22:15 Dose: 25 mg Enoxaparin Sodium (Lovenox) 40 mg SC Q12 [facility] PRN Reason: Protocol Last Admin: 08/03/18 21:37 Dose: 40 mg Glucagon (Glucagen Diagnostic Kit) 0 mg IM STAT PRN; Protocol PRN Reason: Hypoglycemia Protocol Hydromorphone HCl (Dilaudid) 1 mg IVP Q4 PRN PRN Reason: Pain, severe (8-10) Last Admin: 08/18/18 06:33 Dose: 1 mg Ceftriaxone Sodium 2 gm/ (Sodium Chloride) 100 mls @ 100 mls/hr IVPB DAILY [facility] PRN Reason: Protocol Last Admin: 08/17/18 08:35 Dose: 100 mls/hr Vancomycin HCl 1 gm/ Sodium (Chloride) 250 mls @ 166.667 mls/hr IVPB Q12 [facility] PRN Reason: Protocol Last Admin: 08/17/18 22:16 Dose: 166.667 mls/hr Insulin Detemir (Levemir) 15 units SC HS [facility] Last Admin: 08/17/18 22:23 Dose: 15 u Insulin Human Regular (Humulin R) 0 units SC ACHS [facility] PRN Reason: Protocol Last Admin: 08/17/18 22:26 Dose: Not Given Insulin Lispro Protam/Lispro Human (Humalog Mix 75/25) 7 units SC Q12@0700, 1900 [facility] Last Admin: 08/17/18 19:00 Dose: 7 units Lidocaine (Lidoderm) 1 ea TD DAILY [facility] Last Admin: 08/17/18 08:45 Dose: Not Given Lidocaine/Prilocaine (Lidocaine/Prilocaine 2.5%-2.5%) 1 applic TP ONCE PRN PRN Reason: Other Nystatin (Nystop Topical Powder) 1 applic TOP TID [facility] Last Admin: 08/17/18 17:14 Dose: 1 applic Ondansetron HCl (Zofran Inj) 4 mg IVP Q6 PRN PRN Reason: Nausea/Vomiting Last Admin: 08/17/18 22:16 Dose: 4 mg Phenazopyridine HCl (Pyridium) 100 mg PO TID [facility] Last Admin: 08/17/18 17:15 Dose: 100 mg Multivit/Folic Acid/Iron () 1 tab PO DAILY [facility] Last Admin: 08/17/18 08:45 Dose: Not Given - Labs Labs: 08/17/18 05:55 08/17/18 05:55 PT 11.7 Seconds (9.8-13.1) 08/17/18 05:55 INR 1.1 08/17/18 05:55 APTT 28.2 Seconds (25.6-37.1) 08/17/18 05:55 - Constitutional Appears: Well, Non-toxic, No Acute Distress - Head Exam Head Exam: ATRAUMATIC, NORMOCEPHALIC - Eye Exam Eye Exam: EOMI, Normal appearance Pupil Exam: PERRL - ENT Exam ENT Exam: Mucous Membranes Moist - Neck Exam Neck Exam: Normal Inspection - Respiratory Exam Respiratory Exam: NORMAL BREATHING PATTERN - Cardiovascular Exam Cardiovascular Exam: REGULAR RHYTHM - GI/Abdominal Exam GI & Abdominal Exam: Soft. absent: Tenderness - Extremities Exam Extremities Exam: Normal Capillary Refill - Back Exam Additional comments: dressing clean dry and intact - Neurological Exam Neurological Exam: Alert, Awake, Normal Gait, Oriented x3 - Psychiatric Exam Psychiatric exam: Normal Affect, Normal Mood - Skin Skin Exam: Dry, Warm Assessment and Plan - Assessment and Plan (Free Text) Assessment: 33F s/p left gluteal abscess I&D POD#11 Plan: -Reg diet -Antibiotics as per ID -Pain management, wean off -Nursing can continue daily irrigation with peroxide/saline, change dressing as needed -Encourage OOB to chair/Ambulation/IS -Further recommendations as per Dr. Lele Munroe PGY2
[2018-08-18] MEDS: cefTRIAXone 2 GM in Sodium Chloride 0.9% 100 ML IVPB SCH (08:35)
[2018-08-18] MEDS: Prenatal Multivit/Folic Acid/Iron Tab PO SCH (08:36)
[2018-08-18] MEDS: Enoxaparin 40 mg Syringe SC SCH ×4 (08:37→22:23)
[2018-08-18] MEDS: Betamethasone Dip 0.05% Cream(15 gm) TOP SCH ×2 (08:38→16:39)
[2018-08-18] MEDS: Insulin Regular 100 units/ml SC SCH ×2 (08:38→12:02)
[2018-08-18] MEDS: Lidocaine 5% Patch TD SCH (09:00)
[2018-08-18 11:13] LABS: BASO % 0.4 % (0.0-2.0); EOS % 0.1 % (0.0-4.0); HEMOGLOBIN 10.4 g/dL (12.0-16.0); LYMPH # 2.1 K/uL (1.0-4.3); LYMPH % 19.1 % (20.0-40.0); MEAN CELL VOLUME 88.9 fl (81.0-99.0); MEAN CORPUSCULAR HEMOGLOBIN 30.6 pg (27.0-31.0); MEAN CORPUSCULAR HGB CONC 34.4 g/dL (33.0-37.0); MEAN PLATELET VOLUME 8.7 fl (7.2-11.7); MONO # 0.6 K/uL (0.0-0.8); NEUT % 74.4 % (50.0-75.0); NRBC % 0.3 % (0.0-0.0); RBC 3.39 Mil/uL (3.80-5.20); RED CELL DISTRIBUTION WIDTH 14.2 % (11.5-14.5); WHITE BLOOD COUNT 10.8 K/uL (4.8-10.8)
[2018-08-18 11:27] LABS: ALBUMIN 3.1 g/dL (3.5-5.0); ALT/SGPT 72 U/L (9-52); AST/SGOT 57 U/L (14-36); BLOOD UREA NITROGEN 7 mg/dl (7-17); CALCIUM 8.9 mg/dL (8.4-10.2); GFR NON-AFRICAN AMERICAN > 60
[2018-08-18] MEDS: Insulin Detemir 100 Units/ml Inj SC SCH (22:21)
[2018-08-19] MEDS: Insulin Regular 100 units/ml SC SCH ×5 (00:58→22:31)
--- NOTE | 2018-08-19 07:25 | CP.PCM.PN ---
Subjective - Date & Time of Evaluation Date of Evaluation: 08/17/18 Time of Evaluation: 08:00 - Subjective Subjective: Patient complains of persistent pain on the vulvar area. For I and D today Has no fever. WBC 12 Objective - Vital Signs/Intake and Output Vital Signs (last 24 hours): Temp Pulse Resp BP Pulse Ox 98.2 F 78 19 111/68 97 08/19/18 01:00 08/19/18 01:00 08/19/18 01:00 08/19/18 01:00 08/19/18 01:00 - Medications Medications: Current Medications Acetaminophen (Tylenol 325mg Tab) 650 mg PO Q6 PRN PRN Reason: Fever >100.4 F Last Admin: 07/30/18 20:17 Dose: 650 mg Betamethasone Dipropion Augmented (Diprolene Af) 1 gm TOP BID [facility] Last Admin: 08/18/18 16:39 Dose: Not Given Clotrimazole (Lotrimin 1% Vaginal) 1 applic VG HS [facility] Last Admin: 08/18/18 21:21 Dose: Not Given Dextrose (Dextrose 50% Inj) 0 ml IV STAT PRN; Protocol PRN Reason: Hypoglycemia Protocol Dextrose (Glutose 15) 0 gm PO ONCE PRN; Protocol PRN Reason: Hypoglycemia Protocol Diphenhydramine HCl (Benadryl) 25 mg PO ONCE PRN PRN Reason: Itching / Pruritus Last Admin: 08/17/18 22:15 Dose: 25 mg Enoxaparin Sodium (Lovenox) 40 mg SC Q12 [facility] PRN Reason: Protocol Last Admin: 08/18/18 22:23 Dose: 40 mg Glucagon (Glucagen Diagnostic Kit) 0 mg IM STAT PRN; Protocol PRN Reason: Hypoglycemia Protocol Hydromorphone HCl (Dilaudid) 1 mg IVP Q4 PRN PRN Reason: Pain, severe (8-10) Last Admin: 08/19/18 06:43 Dose: 1 mg Ceftriaxone Sodium 2 gm/ (Sodium Chloride) 100 mls @ 100 mls/hr IVPB DAILY [facility] PRN Reason: Protocol Last Admin: 08/18/18 08:35 Dose: 100 mls/hr Vancomycin HCl 1 gm/ Sodium (Chloride) 250 mls @ 166.667 mls/hr IVPB Q12 [facility] PRN Reason: Protocol Last Admin: 08/18/18 21:08 Dose: 166.667 mls/hr Insulin Detemir (Levemir) 15 units SC HS [facility] Last Admin: 08/18/18 22:21 Dose: 15 u Insulin Human Regular (Humulin R) 0 units SC ACHS [facility] PRN Reason: Protocol Last Admin: 08/19/18 00:58 Dose: Not Given Insulin Lispro Protam/Lispro Human (Humalog Mix 75/25) 7 units SC Q12@0700, 1900 [facility] Last Admin: 08/18/18 21:08 Dose: 7 units Lidocaine (Lidoderm) 1 ea TD DAILY [facility] Last Admin: 08/18/18 09:00 Dose: Not Given Lidocaine/Prilocaine (Lidocaine/Prilocaine 2.5%-2.5%) 1 applic TP ONCE PRN PRN Reason: Other Nystatin (Nystop Topical Powder) 1 applic TOP TID [facility] Last Admin: 08/18/18 16:40 Dose: 1 applic Ondansetron HCl (Zofran Inj) 4 mg IVP Q6 PRN PRN Reason: Nausea/Vomiting Last Admin: 08/18/18 16:19 Dose: 4 mg Phenazopyridine HCl (Pyridium) 100 mg PO TID [facility] Last Admin: 08/18/18 16:41 Dose: 100 mg Multivit/Folic Acid/Iron () 1 tab PO DAILY [facility] Last Admin: 08/18/18 08:36 Dose: 1 tab - Labs Labs: 08/18/18 11:08 08/18/18 11:08 PT 11.7 Seconds (9.8-13.1) 08/17/18 05:55 INR 1.1 08/17/18 05:55 APTT 28.2 Seconds (25.6-37.1) 08/17/18 05:55 - Head Exam Head Exam: NORMAL INSPECTION - Eye Exam Eye Exam: Normal appearance - Respiratory Exam Respiratory Exam: NORMAL BREATHING PATTERN - Cardiovascular Exam Cardiovascular Exam: REGULAR RHYTHM - GI/Abdominal Exam GI & Abdominal Exam: Normal Bowel Sounds Assessment and Plan (1) Cellulitis and abscess of buttock Status: Acute (2) Diabetes mellitus type 2 in obese Status: Resolved (3) Status: Acute (4) Morbid (severe) obesity due to excess calories Status: Acute (5) Urethritis Status: Acute (6) Vaginitis Status: Acute - Assessment and Plan (Free Text) Plan: Cont meds Con ttx follow up with surgery and ID.
--- NOTE | 2018-08-19 07:28 | CP.PCM.PN ---
Subjective - Date & Time of Evaluation Date of Evaluation: 08/18/18 Time of Evaluation: 11:00 - Subjective Subjective: Patient claims that she feels a lot better today Has no fever Noted WBC to be normal. Has less pain in the vulvar area. Discussed with Dr Royal and noted no additional areas of abscess during I and D yesterday. Objective - Vital Signs/Intake and Output Vital Signs (last 24 hours): Temp Pulse Resp BP Pulse Ox 98.2 F 78 19 111/68 97 08/19/18 01:00 08/19/18 01:00 08/19/18 01:00 08/19/18 01:00 08/19/18 01:00 - Medications Medications: Current Medications Acetaminophen (Tylenol 325mg Tab) 650 mg PO Q6 PRN PRN Reason: Fever >100.4 F Last Admin: 07/30/18 20:17 Dose: 650 mg Betamethasone Dipropion Augmented (Diprolene Af) 1 gm TOP BID [facility] Last Admin: 08/18/18 16:39 Dose: Not Given Clotrimazole (Lotrimin 1% Vaginal) 1 applic VG HS [facility] Last Admin: 08/18/18 21:21 Dose: Not Given Dextrose (Dextrose 50% Inj) 0 ml IV STAT PRN; Protocol PRN Reason: Hypoglycemia Protocol Dextrose (Glutose 15) 0 gm PO ONCE PRN; Protocol PRN Reason: Hypoglycemia Protocol Diphenhydramine HCl (Benadryl) 25 mg PO ONCE PRN PRN Reason: Itching / Pruritus Last Admin: 08/17/18 22:15 Dose: 25 mg Enoxaparin Sodium (Lovenox) 40 mg SC Q12 [facility] PRN Reason: Protocol Last Admin: 08/18/18 22:23 Dose: 40 mg Glucagon (Glucagen Diagnostic Kit) 0 mg IM STAT PRN; Protocol PRN Reason: Hypoglycemia Protocol Hydromorphone HCl (Dilaudid) 1 mg IVP Q4 PRN PRN Reason: Pain, severe (8-10) Last Admin: 08/19/18 06:43 Dose: 1 mg Ceftriaxone Sodium 2 gm/ (Sodium Chloride) 100 mls @ 100 mls/hr IVPB DAILY [facility] PRN Reason: Protocol Last Admin: 08/18/18 08:35 Dose: 100 mls/hr Vancomycin HCl 1 gm/ Sodium (Chloride) 250 mls @ 166.667 mls/hr IVPB Q12 [facility] PRN Reason: Protocol Last Admin: 08/18/18 21:08 Dose: 166.667 mls/hr Insulin Detemir (Levemir) 15 units SC HS [facility] Last Admin: 08/18/18 22:21 Dose: 15 u Insulin Human Regular (Humulin R) 0 units SC ACHS [facility] PRN Reason: Protocol Last Admin: 08/19/18 00:58 Dose: Not Given Insulin Lispro Protam/Lispro Human (Humalog Mix 75/25) 7 units SC Q12@0700, 1900 [facility] Last Admin: 08/18/18 21:08 Dose: 7 units Lidocaine (Lidoderm) 1 ea TD DAILY [facility] Last Admin: 08/18/18 09:00 Dose: Not Given Lidocaine/Prilocaine (Lidocaine/Prilocaine 2.5%-2.5%) 1 applic TP ONCE PRN PRN Reason: Other Nystatin (Nystop Topical Powder) 1 applic TOP TID [facility] Last Admin: 08/18/18 16:40 Dose: 1 applic Ondansetron HCl (Zofran Inj) 4 mg IVP Q6 PRN PRN Reason: Nausea/Vomiting Last Admin: 08/18/18 16:19 Dose: 4 mg Phenazopyridine HCl (Pyridium) 100 mg PO TID [facility] Last Admin: 08/18/18 16:41 Dose: 100 mg Multivit/Folic Acid/Iron () 1 tab PO DAILY [facility] Last Admin: 08/18/18 08:36 Dose: 1 tab - Labs Labs: 08/18/18 11:08 08/18/18 11:08 PT 11.7 Seconds (9.8-13.1) 08/17/18 05:55 INR 1.1 08/17/18 05:55 APTT 28.2 Seconds (25.6-37.1) 08/17/18 05:55 - Head Exam Head Exam: NORMAL INSPECTION - Eye Exam Eye Exam: Normal appearance - ENT Exam ENT Exam: Mucous Membranes Moist - Respiratory Exam Respiratory Exam: NORMAL BREATHING PATTERN - GI/Abdominal Exam GI & Abdominal Exam: Normal Bowel Sounds Assessment and Plan (1) Cellulitis and abscess of buttock Status: Acute (2) Diabetes mellitus type 2 in obese Status: Resolved (3) Status: Acute (4) Morbid (severe) obesity due to excess calories Status: Acute (5) Urethritis Status: Acute (6) Vaginitis Status: Acute - Assessment and Plan (Free Text) Plan: Discussed with patient re plans to continue iv antibiotics for another week as per ID will continue wound care cont all meds start phys therapy
[2018-08-19] MEDS: Insulin Lispro Mix 75/25 100 units/ml (HumaLog) 10ml SC SCH ×2 (09:10→22:15)
[2018-08-19] MEDS: Lidocaine 5% Patch TD SCH ×2 (09:12→09:28)
[2018-08-19] MEDS: Prenatal Multivit/Folic Acid/Iron Tab PO SCH (09:14)
[2018-08-19] MEDS: Enoxaparin 40 mg Syringe SC SCH ×2 (09:14→22:17)
[2018-08-19] MEDS: cefTRIAXone 2 GM in Sodium Chloride 0.9% 100 ML IVPB SCH (09:15)
[2018-08-19] MEDS: Betamethasone Dip 0.05% Cream(15 gm) TOP SCH ×2 (13:26→19:44)
[2018-08-19] MEDS ORDERED: POLYETHYLENE GLYCOL 3350 17 GM/Dose PACKET PO ONE (15:02)
--- NOTE | 2018-08-19 15:03 | CP.PCM.PN ---
Subjective - Date & Time of Evaluation Date of Evaluation: 08/19/18 Time of Evaluation: 09:00 - Subjective Subjective: Not overnight events. Pt complains of feeling constipated. Pain controlled. Objective - Vital Signs/Intake and Output Vital Signs (last 24 hours): Temp Pulse Resp BP Pulse Ox 98.3 F 74 19 106/69 96 08/19/18 08:14 08/19/18 08:14 08/19/18 08:14 08/19/18 08:14 08/19/18 08:14 - Medications Medications: Current Medications Acetaminophen (Tylenol 325mg Tab) 650 mg PO Q6 PRN PRN Reason: Fever >100.4 F Last Admin: 07/30/18 20:17 Dose: 650 mg Betamethasone Dipropion Augmented (Diprolene Af) 1 gm TOP BID [facility] Last Admin: 08/19/18 13:26 Dose: 1 appl Clotrimazole (Lotrimin 1% Vaginal) 1 applic VG [facility] Last Admin: 08/18/18 21:21 Dose: Not Given Dextrose (Dextrose 50% Inj) 0 ml IV STAT PRN; Protocol PRN Reason: Hypoglycemia Protocol Dextrose (Glutose 15) 0 gm PO ONCE PRN; Protocol PRN Reason: Hypoglycemia Protocol Diphenhydramine HCl (Benadryl) 25 mg PO ONCE PRN PRN Reason: Itching / Pruritus Last Admin: 08/17/18 22:15 Dose: 25 mg Enoxaparin Sodium (Lovenox) 40 mg SC Q12 [facility] PRN Reason: Protocol Last Admin: 08/19/18 09:14 Dose: 40 mg Glucagon (Glucagen Diagnostic Kit) 0 mg IM STAT PRN; Protocol PRN Reason: Hypoglycemia Protocol Ceftriaxone Sodium 2 gm/ (Sodium Chloride) 100 mls @ 100 mls/hr IVPB DAILY [facility] PRN Reason: Protocol Last Admin: 08/19/18 09:15 Dose: 100 mls/hr Vancomycin HCl 1 gm/ Sodium (Chloride) 250 mls @ 166.667 mls/hr IVPB Q12 [facility] PRN Reason: Protocol Last Admin: 08/19/18 09:16 Dose: 166.667 mls/hr Insulin Detemir (Levemir) 15 units SC HS [facility] Last Admin: 08/18/18 22:21 Dose: 15 u Insulin Human Regular (Humulin R) 0 units SC ACHS [facility] PRN Reason: Protocol Last Admin: 08/19/18 13:22 Dose: Not Given Insulin Lispro Protam/Lispro Human (Humalog Mix 75/25) 7 units SC Q12@0700, 1900 [facility] Last Admin: 08/19/18 09:10 Dose: 7 units Lidocaine (Lidoderm) 1 ea TD DAILY [facility] Last Admin: 08/19/18 09:28 Dose: Not Given Lidocaine/Prilocaine (Lidocaine/Prilocaine 2.5%-2.5%) 1 applic TP ONCE PRN PRN Reason: Other Nystatin (Nystop Topical Powder) 1 applic TOP TID [facility] Last Admin: 08/19/18 09:14 Dose: 1 applic Ondansetron HCl (Zofran Inj) 4 mg IVP Q6 PRN PRN Reason: Nausea/Vomiting Last Admin: 08/19/18 09:09 Dose: 4 mg Phenazopyridine HCl (Pyridium) 100 mg PO TID [facility] Last Admin: 08/19/18 13:24 Dose: 100 mg Multivit/Folic Acid/Iron () 1 tab PO DAILY [facility] Last Admin: 08/19/18 09:14 Dose: 1 tab - Labs Labs: 08/18/18 11:08 08/18/18 11:08 PT 11.7 Seconds (9.8-13.1) 08/17/18 05:55 INR 1.1 08/17/18 05:55 APTT 28.2 Seconds (25.6-37.1) 08/17/18 05:55 - Constitutional Appears: No Acute Distress - Head Exam Head Exam: NORMAL INSPECTION - Eye Exam Eye Exam: Normal appearance - ENT Exam ENT Exam: Mucous Membranes Moist - Respiratory Exam Respiratory Exam: Clear to Ausculation Bilateral - Cardiovascular Exam Cardiovascular Exam: REGULAR RHYTHM - GI/Abdominal Exam GI & Abdominal Exam: Soft, Normal Bowel Sounds. absent: Tenderness - Extremities Exam Extremities Exam: absent: Pedal Edema - Neurological Exam Neurological Exam: Alert, Normal Gait - Psychiatric Exam Psychiatric exam: Normal Affect - Skin Skin Exam: Normal Color Assessment and Plan (1) Cellulitis and abscess of buttock Status: Acute (2) Vaginitis Status: Acute - Assessment and Plan (Free Text) Assessment: 33 y/o F with No PMHx, at 16 weeks of gestational age, was admitted due to Left gluteus cellulitis s/p I&D. -Continue with IV antibiotics -Miralax for constipation -D/c Dilaudid, Percocet for pain. -Surgery on board, will follow recommendations. Discussed case with Dr. Rojas Zamudio, PGY2
[2018-08-19] MEDS ORDERED: Hydrogen Peroxide 3% Soln (480ml) TP ONE (15:36)
[2018-08-19] MEDS: Insulin Detemir 100 Units/ml Inj SC SCH (22:14)
[2018-08-20 07:10] LABS: HEMOGLOBIN 10.5 g/dL (12.0-16.0); MEAN CELL VOLUME 88.6 fl (81.0-99.0); MEAN CORPUSCULAR HEMOGLOBIN 30.7 pg (27.0-31.0); MEAN CORPUSCULAR HGB CONC 34.6 g/dL (33.0-37.0); RBC 3.44 Mil/uL (3.80-5.20); RED CELL DISTRIBUTION WIDTH 14.5 % (11.5-14.5); WHITE BLOOD COUNT 9.4 K/uL (4.8-10.8)
[2018-08-20 07:14] LABS: ALBUMIN 2.9 g/dL (3.5-5.0); ALT/SGPT 63 U/L (9-52); AST/SGOT 43 U/L (14-36); BLOOD UREA NITROGEN 7 mg/dl (7-17); CALCIUM 8.9 mg/dL (8.4-10.2); GFR NON-AFRICAN AMERICAN > 60
[2018-08-20] MEDS: Insulin Regular 100 units/ml SC SCH ×4 (07:26→23:04)
[2018-08-20] MEDS: Insulin Lispro Mix 75/25 100 units/ml (HumaLog) 10ml SC SCH ×2 (10:04→19:08)
[2018-08-20] MEDS: Enoxaparin 40 mg Syringe SC SCH ×2 (10:06→21:11)
[2018-08-20] MEDS: Prenatal Multivit/Folic Acid/Iron Tab PO SCH (10:07)
[2018-08-20] MEDS: cefTRIAXone 2 GM in Sodium Chloride 0.9% 100 ML IVPB SCH (10:07)
[2018-08-20] MEDS: Lidocaine 5% Patch TD SCH (10:09)
[2018-08-20] MEDS ORDERED: Morphine 30 mg Immediate Release Tab PO PRN (12:19)
--- NOTE | 2018-08-20 15:52 | CP.PCM.PN ---
Subjective - Date & Time of Evaluation Date of Evaluation: 08/20/18 Time of Evaluation: 08:00 - Subjective Subjective: No acute events overnight. Pt seen and examined this morning. Reports pain that is controlled with medication. Had 1 BM this am- well formed. Discussed need to take patient off IV analgesic meds and start po meds. Pt agreeable. Objective - Vital Signs/Intake and Output Vital Signs (last 24 hours): Temp Pulse Resp BP Pulse Ox 97.5 F L 67 19 118/77 97 08/20/18 08:02 08/20/18 08:02 08/20/18 08:02 08/20/18 08:02 08/20/18 08:02 - Medications Medications: Current Medications Acetaminophen (Tylenol 325mg Tab) 650 mg PO Q6 PRN PRN Reason: Fever >100.4 F Last Admin: 07/30/18 20:17 Dose: 650 mg Betamethasone Dipropion Augmented (Diprolene Af) 1 gm TOP BID [facility] Last Admin: 08/19/18 19:44 Dose: Not Given Clotrimazole (Lotrimin 1% Vaginal) 1 applic VG HS [facility] Last Admin: 08/19/18 23:06 Dose: Not Given Dextrose (Dextrose 50% Inj) 0 ml IV STAT PRN; Protocol PRN Reason: Hypoglycemia Protocol Dextrose (Glutose 15) 0 gm PO ONCE PRN; Protocol PRN Reason: Hypoglycemia Protocol Diphenhydramine HCl (Benadryl) 25 mg PO ONCE PRN PRN Reason: Itching / Pruritus Last Admin: 08/17/18 22:15 Dose: 25 mg Enoxaparin Sodium (Lovenox) 40 mg SC Q12 [facility] PRN Reason: Protocol Last Admin: 08/20/18 10:06 Dose: 40 mg Glucagon (Glucagen Diagnostic Kit) 0 mg IM STAT PRN; Protocol PRN Reason: Hypoglycemia Protocol Hydromorphone HCl (Dilaudid) 0.5 mg IVP Q4H PRN PRN Reason: Pain, severe (8-10) Last Admin: 08/20/18 15:37 Dose: 0.5 mg Ceftriaxone Sodium 2 gm/ (Sodium Chloride) 100 mls @ 100 mls/hr IVPB DAILY [facility] PRN Reason: Protocol Last Admin: 08/20/18 10:07 Dose: 100 mls/hr Vancomycin HCl 1 gm/ Sodium (Chloride) 250 mls @ 166.667 mls/hr IVPB Q12 [facility] PRN Reason: Protocol Last Admin: 08/20/18 10:08 Dose: 166.667 mls/hr Insulin Detemir (Levemir) 15 units SC HS [facility] Last Admin: 08/19/18 22:14 Dose: 15 u Insulin Human Regular (Humulin R) 0 units SC ACHS [facility] PRN Reason: Protocol Last Admin: 08/20/18 14:01 Dose: Not Given Insulin Lispro Protam/Lispro Human (Humalog Mix 75/25) 7 units SC Q12@0700, 1900 [facility] Last Admin: 08/20/18 10:04 Dose: 7 units Lidocaine (Lidoderm) 1 ea TD DAILY [facility] Last Admin: 08/20/18 10:09 Dose: Not Given Lidocaine/Prilocaine (Lidocaine/Prilocaine 2.5%-2.5%) 1 applic TP ONCE PRN PRN Reason: Other Morphine Sulfate (Morphine Immediate Release Tab) 30 mg PO Q4 PRN PRN Reason: Pain, moderate (4-7) Nystatin (Nystop Topical Powder) 1 applic TOP TID [facility] Last Admin: 08/20/18 14:03 Dose: 1 applic Ondansetron HCl (Zofran Inj) 4 mg IVP Q6 PRN PRN Reason: Nausea/Vomiting Last Admin: 08/20/18 14:10 Dose: 4 mg Phenazopyridine HCl (Pyridium) 100 mg PO TID [facility] Last Admin: 08/20/18 14:03 Dose: 100 mg Multivit/Folic Acid/Iron () 1 tab PO DAILY [facility] Last Admin: 08/20/18 10:07 Dose: 1 tab - Labs Labs: 08/20/18 06:05 08/20/18 06:05 PT 11.7 Seconds (9.8-13.1) 08/17/18 05:55 INR 1.1 08/17/18 05:55 APTT 28.2 Seconds (25.6-37.1) 08/17/18 05:55 - Constitutional Appears: Non-toxic, No Acute Distress - Head Exam Head Exam: NORMAL INSPECTION - Eye Exam Eye Exam: Normal appearance - ENT Exam ENT Exam: Mucous Membranes Moist - Neck Exam Neck Exam: Full ROM - Respiratory Exam Respiratory Exam: Clear to Ausculation Bilateral - Cardiovascular Exam Cardiovascular Exam: REGULAR RHYTHM - GI/Abdominal Exam GI & Abdominal Exam: Soft. absent: Tenderness - Extremities Exam Extremities Exam: absent: Pedal Edema - Neurological Exam Neurological Exam: Oriented x3 - Psychiatric Exam Psychiatric exam: Normal Affect - Skin Skin Exam: Normal Color Assessment and Plan (1) Cellulitis and abscess of buttock Status: Acute (2) Vaginitis Status: Acute - Assessment and Plan (Free Text) Assessment: 33 y/o F with No PMHx, at 16 weeks of gestational age, was admitted due to Left gluteus cellulitis s/p I&D. -Continue with IV antibiotics -D/c Dilaudid, Morphine PO for pain. -Surgery on board, will follow recommendations. Discussed case with Dr. Eliseo Zamudio, PGY2
[2018-08-20] MEDS: Betamethasone Dip 0.05% Cream(15 gm) TOP SCH (17:48)
[2018-08-20] MEDS: Insulin Detemir 100 Units/ml Inj SC SCH (23:03)
[2018-08-21 06:30] LABS: BASO % 0.5 % (0.0-2.0); EOS % 0.4 % (0.0-4.0); HEMOGLOBIN 10.6 g/dL (12.0-16.0); LYMPH # 2.3 K/uL (1.0-4.3); LYMPH % 28.5 % (20.0-40.0); MEAN CELL VOLUME 88.8 fl (81.0-99.0); MEAN CORPUSCULAR HEMOGLOBIN 30.2 pg (27.0-31.0); MEAN PLATELET VOLUME 9.4 fl (7.2-11.7); MONO # 0.6 K/uL (0.0-0.8); MONO % 7.8 % (0.0-10.0); NEUT # 5.1 K/uL (1.8-7.0); NEUT % 62.8 % (50.0-75.0); RBC 3.53 Mil/uL (3.80-5.20); RED CELL DISTRIBUTION WIDTH 14.8 % (11.5-14.5); WHITE BLOOD COUNT 8.2 K/uL (4.8-10.8)
[2018-08-21] MEDS: Insulin Regular 100 units/ml SC SCH ×4 (06:30→22:25)
[2018-08-21 06:35] LABS: BLOOD UREA NITROGEN 7 mg/dl (7-17); CALCIUM 9.1 mg/dL (8.4-10.2); GFR NON-AFRICAN AMERICAN > 60
[2018-08-21] MEDS: Lidocaine 5% Patch TD SCH ×2 (09:45→10:00)
[2018-08-21] MEDS: Enoxaparin 40 mg Syringe SC SCH ×3 (09:45→21:27)
[2018-08-21] MEDS: Insulin Lispro Mix 75/25 100 units/ml (HumaLog) 10ml SC SCH ×2 (09:46→18:10)
[2018-08-21] MEDS: Prenatal Multivit/Folic Acid/Iron Tab PO SCH (09:46)
[2018-08-21] MEDS: cefTRIAXone 2 GM in Sodium Chloride 0.9% 100 ML IVPB SCH (09:47)
[2018-08-21] MEDS: Betamethasone Dip 0.05% Cream(15 gm) TOP SCH ×2 (09:59→16:22)
[2018-08-21] MEDS ORDERED: Morphine 15 mg Immediate Release Tab PO PRN (13:41)
--- NOTE | 2018-08-21 16:32 | CP.PCM.PN ---
Subjective - Date & Time of Evaluation Date of Evaluation: 08/21/18 Time of Evaluation: 16:23 - Subjective Subjective: I D NOTE SURGICAL CULTURES SHOW ENTEROCOCCUS FAECAELIS THAT IS SENSITIVE TO VANCOMYCIN ALSO SENSITIVE TO AMPICILLIN. WOULD CONTINUE WBC IS NOW 8.2. CREATININE:0.6,GFR>60 WHEN CLEARED WILL CONSIDER PO RX Objective - Vital Signs/Intake and Output Vital Signs (last 24 hours): Temp Pulse Resp BP Pulse Ox 98.4 F 72 18 104/71 96 08/21/18 16:03 08/21/18 16:03 08/21/18 16:03 08/21/18 16:03 08/21/18 16:03 - Medications Medications: Current Medications Acetaminophen (Tylenol 325mg Tab) 650 mg PO Q6 PRN PRN Reason: Fever >100.4 F Last Admin: 07/30/18 20:17 Dose: 650 mg Betamethasone Dipropion Augmented (Diprolene Af) 1 gm TOP BID [facility] Last Admin: 08/21/18 16:22 Dose: Not Given Clotrimazole (Lotrimin 1% Vaginal) 1 applic VG HS [facility] Last Admin: 08/20/18 21:12 Dose: 1 applic Dextrose (Dextrose 50% Inj) 0 ml IV STAT PRN; Protocol PRN Reason: Hypoglycemia Protocol Dextrose (Glutose 15) 0 gm PO ONCE PRN; Protocol PRN Reason: Hypoglycemia Protocol Diphenhydramine HCl (Benadryl) 25 mg PO ONCE PRN PRN Reason: Itching / Pruritus Last Admin: 08/17/18 22:15 Dose: 25 mg Enoxaparin Sodium (Lovenox) 40 mg SC Q12 [facility] PRN Reason: Protocol Last Admin: 08/21/18 09:59 Dose: Not Given Glucagon (Glucagen Diagnostic Kit) 0 mg IM STAT PRN; Protocol PRN Reason: Hypoglycemia Protocol Hydromorphone HCl (Dilaudid) 0.5 mg IVP Q4H PRN PRN Reason: Pain, severe (8-10) Last Admin: 08/21/18 15:10 Dose: 0.5 mg Ceftriaxone Sodium 2 gm/ (Sodium Chloride) 100 mls @ 100 mls/hr IVPB DAILY [facility] PRN Reason: Protocol Last Admin: 08/21/18 09:47 Dose: 100 mls/hr Vancomycin HCl 1 gm/ Sodium (Chloride) 250 mls @ 166.667 mls/hr IVPB Q12 [facility] PRN Reason: Protocol Last Admin: 08/21/18 09:47 Dose: 166.667 mls/hr Insulin Detemir (Levemir) 15 units SC HS [facility] Last Admin: 08/20/18 23:03 Dose: 15 u Insulin Human Regular (Humulin R) 0 units SC ACHS [facility] PRN Reason: Protocol Last Admin: 08/21/18 11:16 Dose: Not Given Insulin Lispro Protam/Lispro Human (Humalog Mix 75/25) 7 units SC Q12@0700, 1900 [facility] Last Admin: 08/21/18 09:46 Dose: 7 units Lidocaine (Lidoderm) 1 ea TD DAILY [facility] Last Admin: 08/21/18 10:00 Dose: Not Given Lidocaine/Prilocaine (Lidocaine/Prilocaine 2.5%-2.5%) 1 applic TP ONCE PRN PRN Reason: Other Morphine Sulfate (Morphine Extended Release Tab) 15 mg PO Q12 [facility] Morphine Sulfate (Morphine Immediate Release Tab) 15 mg PO Q4 PRN PRN Reason: Pain, moderate (4-7) Nystatin (Nystop Topical Powder) 1 applic TOP TID [facility] Last Admin: 08/21/18 12:31 Dose: 1 applic Ondansetron HCl (Zofran Inj) 4 mg IVP Q6 PRN PRN Reason: Nausea/Vomiting Last Admin: 08/21/18 07:14 Dose: 4 mg Phenazopyridine HCl (Pyridium) 100 mg PO TID [facility] Last Admin: 08/21/18 12:31 Dose: 100 mg Multivit/Folic Acid/Iron () 1 tab PO DAILY [facility] Last Admin: 08/21/18 09:46 Dose: 1 tab - Labs Labs: 08/21/18 05:40 08/21/18 05:40 PT 11.7 Seconds (9.8-13.1) 08/17/18 05:55 INR 1.1 08/17/18 05:55 APTT 28.2 Seconds (25.6-37.1) 08/17/18 05:55
--- NOTE | 2018-08-21 17:22 | CP.PCM.PN ---
Subjective - Date & Time of Evaluation Date of Evaluation: 08/21/18 Time of Evaluation: 09:00 - Subjective Subjective: No acute overnight events. Reports pain but well controlled with medication. Objective - Vital Signs/Intake and Output Vital Signs (last 24 hours): Temp Pulse Resp BP Pulse Ox 98.4 F 72 18 104/71 96 08/21/18 16:03 08/21/18 16:03 08/21/18 16:03 08/21/18 16:03 08/21/18 16:03 - Medications Medications: Current Medications Acetaminophen (Tylenol 325mg Tab) 650 mg PO Q6 PRN PRN Reason: Fever >100.4 F Last Admin: 07/30/18 20:17 Dose: 650 mg Betamethasone Dipropion Augmented (Diprolene Af) 1 gm TOP BID [facility] Last Admin: 08/21/18 16:22 Dose: Not Given Clotrimazole (Lotrimin 1% Vaginal) 1 applic VG HS [facility] Last Admin: 08/20/18 21:12 Dose: 1 applic Dextrose (Dextrose 50% Inj) 0 ml IV STAT PRN; Protocol PRN Reason: Hypoglycemia Protocol Dextrose (Glutose 15) 0 gm PO ONCE PRN; Protocol PRN Reason: Hypoglycemia Protocol Diphenhydramine HCl (Benadryl) 25 mg PO ONCE PRN PRN Reason: Itching / Pruritus Last Admin: 08/17/18 22:15 Dose: 25 mg Enoxaparin Sodium (Lovenox) 40 mg SC Q12 [facility] PRN Reason: Protocol Last Admin: 08/21/18 09:59 Dose: Not Given Glucagon (Glucagen Diagnostic Kit) 0 mg IM STAT PRN; Protocol PRN Reason: Hypoglycemia Protocol Hydromorphone HCl (Dilaudid) 0.5 mg IVP Q4H PRN PRN Reason: Pain, severe (8-10) Last Admin: 08/21/18 15:10 Dose: 0.5 mg Ceftriaxone Sodium 2 gm/ (Sodium Chloride) 100 mls @ 100 mls/hr IVPB DAILY [facility] PRN Reason: Protocol Last Admin: 08/21/18 09:47 Dose: 100 mls/hr Vancomycin HCl 1 gm/ Sodium (Chloride) 250 mls @ 166.667 mls/hr IVPB Q12 [facility] PRN Reason: Protocol Last Admin: 08/21/18 09:47 Dose: 166.667 mls/hr Insulin Detemir (Levemir) 15 units SC HS [facility] Last Admin: 08/20/18 23:03 Dose: 15 u Insulin Human Regular (Humulin R) 0 units SC ACHS [facility] PRN Reason: Protocol Last Admin: 08/21/18 16:29 Dose: Not Given Insulin Lispro Protam/Lispro Human (Humalog Mix 75/25) 7 units SC Q12@0700, 1900 [facility] Last Admin: 08/21/18 09:46 Dose: 7 units Lidocaine (Lidoderm) 1 ea TD DAILY [facility] Last Admin: 08/21/18 10:00 Dose: Not Given Lidocaine/Prilocaine (Lidocaine/Prilocaine 2.5%-2.5%) 1 applic TP ONCE PRN PRN Reason: Other Morphine Sulfate (Morphine Extended Release Tab) 15 mg PO Q12 [facility] Morphine Sulfate (Morphine Immediate Release Tab) 15 mg PO Q4 PRN PRN Reason: Pain, moderate (4-7) Nystatin (Nystop Topical Powder) 1 applic TOP TID [facility] Last Admin: 08/21/18 16:28 Dose: 1 applic Ondansetron HCl (Zofran Inj) 4 mg IVP Q6 PRN PRN Reason: Nausea/Vomiting Last Admin: 08/21/18 07:14 Dose: 4 mg Phenazopyridine HCl (Pyridium) 100 mg PO TID [facility] Last Admin: 08/21/18 16:28 Dose: 100 mg Multivit/Folic Acid/Iron () 1 tab PO DAILY [facility] Last Admin: 08/21/18 09:46 Dose: 1 tab - Labs Labs: 08/21/18 05:40 08/21/18 05:40 PT 11.7 Seconds (9.8-13.1) 08/17/18 05:55 INR 1.1 08/17/18 05:55 APTT 28.2 Seconds (25.6-37.1) 08/17/18 05:55 - Constitutional Appears: No Acute Distress - Head Exam Head Exam: NORMAL INSPECTION - Eye Exam Eye Exam: Normal appearance - ENT Exam ENT Exam: Mucous Membranes Moist - Neck Exam Neck Exam: Full ROM - Respiratory Exam Respiratory Exam: Clear to Ausculation Bilateral. absent: Rales, Wheezes - Cardiovascular Exam Cardiovascular Exam: REGULAR RHYTHM, +S1, +S2 - GI/Abdominal Exam GI & Abdominal Exam: Normal Bowel Sounds. absent: Tenderness - Extremities Exam Extremities Exam: absent: Pedal Edema - Neurological Exam Neurological Exam: Alert, Oriented x3 - Psychiatric Exam Psychiatric exam: Normal Affect, Normal Mood - Skin Skin Exam: Normal Color Assessment and Plan (1) Cellulitis and abscess of buttock Status: Acute (2) Vaginitis Status: Acute - Assessment and Plan (Free Text) Assessment: 33 y/o F with No PMHx, at 16 weeks of gestational age, was admitted due to Left gluteus cellulitis s/p I&D. Currently receiving IV antibiotics until 08/24 as per ID. Cleared by Surgery. -Continue with IV antibiotics -Wean of IV analgesics. PO morphine- Extended release (scheduled) and Immediate release (prn) for moderate pain. Dilaudid for severe) -Surgery: pt clear for discharge, can f/u with Dr. Holman at [facility] -PT ordered Discussed case with Dr. Eliseo Zamudio, PGY2
[2018-08-21] MEDS: Morphine 15 mg SR Tab PO SCH (21:12)
[2018-08-21] MEDS: Insulin Detemir 100 Units/ml Inj SC SCH (21:15)
[2018-08-22] MEDS: Insulin Lispro Mix 75/25 100 units/ml (HumaLog) 10ml SC SCH ×2 (07:23→20:41)
[2018-08-22] MEDS: Insulin Regular 100 units/ml SC SCH ×4 (10:52→22:10)
[2018-08-22] MEDS: Lidocaine 5% Patch TD SCH (10:53)
[2018-08-22] MEDS: Enoxaparin 40 mg Syringe SC SCH ×3 (10:54→21:00)
[2018-08-22] MEDS: Prenatal Multivit/Folic Acid/Iron Tab PO SCH (10:55)
[2018-08-22] MEDS: cefTRIAXone 2 GM in Sodium Chloride 0.9% 100 ML IVPB SCH (10:55)
[2018-08-22] MEDS: Morphine 15 mg SR Tab PO SCH ×2 (11:01→20:50)
[2018-08-22] MEDS: Betamethasone Dip 0.05% Cream(15 gm) TOP SCH ×2 (15:04→17:54)
--- NOTE | 2018-08-22 21:14 | CP.PCM.PN ---
Subjective - Date & Time of Evaluation Date of Evaluation: 08/22/18 Time of Evaluation: 15:00 - Subjective Subjective: patient seen and examined at bedside. no acute events overnight. pain better controlled. no new complaints at this time. no f/c/n/v/d. Objective - Vital Signs/Intake and Output Vital Signs (last 24 hours): Temp Pulse Resp BP Pulse Ox 97.4 F L 73 18 123/75 99 08/22/18 16:04 08/22/18 16:04 08/22/18 16:04 08/22/18 16:04 08/22/18 16:04 - Medications Medications: Current Medications Acetaminophen (Tylenol 325mg Tab) 650 mg PO Q6 PRN PRN Reason: Fever >100.4 F Last Admin: 07/30/18 20:17 Dose: 650 mg Betamethasone Dipropion Augmented (Diprolene Af) 1 gm TOP BID [facility] Last Admin: 08/22/18 17:54 Dose: Not Given Clotrimazole (Lotrimin 1% Vaginal) 1 applic VG HS [facility] Last Admin: 08/20/18 21:12 Dose: 1 applic Dextrose (Dextrose 50% Inj) 0 ml IV STAT PRN; Protocol PRN Reason: Hypoglycemia Protocol Dextrose (Glutose 15) 0 gm PO ONCE PRN; Protocol PRN Reason: Hypoglycemia Protocol Diphenhydramine HCl (Benadryl) 25 mg PO ONCE PRN PRN Reason: Itching / Pruritus Last Admin: 08/17/18 22:15 Dose: 25 mg Docusate Sodium (Colace) 100 mg PO ONCE ONE Stop: 08/22/18 20:57 Enoxaparin Sodium (Lovenox) 40 mg SC Q12 [facility] PRN Reason: Protocol Last Admin: 08/22/18 15:04 Dose: Not Given Glucagon (Glucagen Diagnostic Kit) 0 mg IM STAT PRN; Protocol PRN Reason: Hypoglycemia Protocol Hydromorphone HCl (Dilaudid) 0.5 mg IVP Q4H PRN PRN Reason: Pain, severe (8-10) Last Admin: 08/22/18 17:52 Dose: 0.5 mg Ceftriaxone Sodium 2 gm/ (Sodium Chloride) 100 mls @ 100 mls/hr IVPB DAILY [facility] PRN Reason: Protocol Last Admin: 08/22/18 10:55 Dose: 100 mls/hr Vancomycin HCl 1 gm/ Sodium (Chloride) 250 mls @ 166.667 mls/hr IVPB Q12 [facility] PRN Reason: Protocol Last Admin: 08/22/18 20:40 Dose: 166.667 mls/hr Insulin Detemir (Levemir) 15 units SC HS [facility] Last Admin: 08/21/18 21:15 Dose: 15 u Insulin Human Regular (Humulin R) 0 units SC ACHS [facility] PRN Reason: Protocol Last Admin: 08/22/18 17:55 Dose: Not Given Insulin Lispro Protam/Lispro Human (Humalog Mix 75/25) 7 units SC Q12@0700, 1900 [facility] Last Admin: 08/22/18 20:41 Dose: 7 units Lidocaine (Lidoderm) 1 ea TD DAILY [facility] Last Admin: 08/22/18 10:53 Dose: 1 ea Lidocaine/Prilocaine (Lidocaine/Prilocaine 2.5%-2.5%) 1 applic TP ONCE PRN PRN Reason: Other Morphine Sulfate (Morphine Extended Release Tab) 15 mg PO Q12 [facility] Last Admin: 08/22/18 20:50 Dose: 15 mg Morphine Sulfate (Morphine Immediate Release Tab) 15 mg PO Q4 PRN PRN Reason: Pain, moderate (4-7) Last Admin: 08/21/18 19:47 Dose: 15 mg Nystatin (Nystop Topical Powder) 1 applic TOP TID [facility] Last Admin: 08/22/18 17:55 Dose: 1 applic Ondansetron HCl (Zofran Inj) 4 mg IVP Q6 PRN PRN Reason: Nausea/Vomiting Last Admin: 08/22/18 11:59 Dose: 4 mg Phenazopyridine HCl (Pyridium) 100 mg PO TID [facility] Last Admin: 08/22/18 17:55 Dose: 100 mg Multivit/Folic Acid/Iron () 1 tab PO DAILY [facility] Last Admin: 08/22/18 10:55 Dose: 1 tab - Labs Labs: 08/21/18 05:40 08/21/18 05:40 PT 11.7 Seconds (9.8-13.1) 08/17/18 05:55 INR 1.1 08/17/18 05:55 APTT 28.2 Seconds (25.6-37.1) 08/17/18 05:55 - Constitutional Appears: Non-toxic, No Acute Distress - Head Exam Head Exam: NORMAL INSPECTION - Eye Exam Eye Exam: Normal appearance - Neck Exam Neck Exam: Normal Inspection - Respiratory Exam Respiratory Exam: Clear to Ausculation Bilateral, NORMAL BREATHING PATTERN - Cardiovascular Exam Cardiovascular Exam: REGULAR RHYTHM, +S1, +S2. absent: Murmur - GI/Abdominal Exam GI & Abdominal Exam: Soft, Normal Bowel Sounds. absent: Tenderness - Extremities Exam Extremities Exam: Normal Inspection - Back Exam Back Exam: NORMAL INSPECTION - Neurological Exam Neurological Exam: Alert, Awake, Oriented x3 - Psychiatric Exam Psychiatric exam: Normal Affect, Normal Mood - Skin Skin Exam: Dry, Normal Color, Warm Assessment and Plan - Assessment and Plan (Free Text) Assessment: 33 y/o F with No PMHx, at 17 weeks of gestational age, admitted due to Left gluteus cellulitis s/p I&D. Currently receiving IV antibiotics until 08/24 as per ID. Cleared by Surgery. -Continue with IV antibiotics -Wean of IV analgesics. PO morphine- Extended release (scheduled) and Immediate release (prn) for moderate pain. Dilaudid for severe) -Surgery: pt clear for discharge, can f/u with Dr. Holman at [place] [facility] -PT ordered, refused to participate
[2018-08-22] MEDS: Insulin Detemir 100 Units/ml Inj SC SCH (21:59)
[2018-08-23] MEDS: Insulin Lispro Mix 75/25 100 units/ml (HumaLog) 10ml SC SCH ×2 (06:36→21:25)
[2018-08-23] MEDS: Insulin Regular 100 units/ml SC SCH ×4 (09:39→22:13)
[2018-08-23] MEDS: Enoxaparin 40 mg Syringe SC SCH (09:41)
[2018-08-23] MEDS: Betamethasone Dip 0.05% Cream(15 gm) TOP SCH ×2 (09:42→20:52)
[2018-08-23] MEDS: Lidocaine 5% Patch TD SCH (09:42)
[2018-08-23] MEDS: Prenatal Multivit/Folic Acid/Iron Tab PO SCH (09:43)
[2018-08-23] MEDS: cefTRIAXone 2 GM in Sodium Chloride 0.9% 100 ML IVPB SCH (09:43)
[2018-08-23] MEDS: Morphine 15 mg SR Tab PO SCH (09:48)
--- NOTE | 2018-08-23 16:15 | CP.PCM.PN ---
Subjective - Date & Time of Evaluation Date of Evaluation: 08/23/18 Time of Evaluation: 10:00 - Subjective Subjective: patient seen and examined at bedside. no acute events overnight. pain better controlled. mild constipation/straining without blood in stool. no f/n/v/d. Objective - Vital Signs/Intake and Output Vital Signs (last 24 hours): Temp Pulse Resp BP Pulse Ox 98.3 F 91 H 20 103/65 96 08/23/18 08:41 08/23/18 08:41 08/23/18 08:41 08/23/18 08:41 08/23/18 08:41 - Medications Medications: Current Medications Acetaminophen (Tylenol 325mg Tab) 650 mg PO Q6 PRN PRN Reason: Fever >100.4 F Last Admin: 07/30/18 20:17 Dose: 650 mg Betamethasone Dipropion Augmented (Diprolene Af) 1 gm TOP BID [facility] Last Admin: 08/23/18 09:42 Dose: Not Given Clotrimazole (Lotrimin 1% Vaginal) 1 applic VG HS [facility] Last Admin: 08/22/18 22:10 Dose: Not Given Dextrose (Dextrose 50% Inj) 0 ml IV STAT PRN; Protocol PRN Reason: Hypoglycemia Protocol Dextrose (Glutose 15) 0 gm PO ONCE PRN; Protocol PRN Reason: Hypoglycemia Protocol Diphenhydramine HCl (Benadryl) 25 mg PO ONCE PRN PRN Reason: Itching / Pruritus Last Admin: 08/17/18 22:15 Dose: 25 mg Docusate Sodium (Colace) 100 mg PO BID [facility] Last Admin: 08/23/18 14:02 Dose: 100 mg Enoxaparin Sodium (Lovenox) 40 mg SC Q12 [facility] PRN Reason: Protocol Last Admin: 08/23/18 09:41 Dose: Not Given Glucagon (Glucagen Diagnostic Kit) 0 mg IM STAT PRN; Protocol PRN Reason: Hypoglycemia Protocol Ceftriaxone Sodium 2 gm/ (Sodium Chloride) 100 mls @ 100 mls/hr IVPB DAILY [facility] PRN Reason: Protocol Last Admin: 08/23/18 09:43 Dose: 100 mls/hr Vancomycin HCl 1 gm/ Sodium (Chloride) 250 mls @ 166.667 mls/hr IVPB Q12 [facility] PRN Reason: Protocol Last Admin: 08/23/18 09:44 Dose: 166.667 mls/hr Insulin Detemir (Levemir) 15 units SC HS [facility] Last Admin: 08/22/18 21:59 Dose: 15 u Insulin Human Regular (Humulin R) 0 units SC ACHS [facility] PRN Reason: Protocol Last Admin: 08/23/18 09:39 Dose: Not Given Insulin Lispro Protam/Lispro Human (Humalog Mix 75/25) 7 units SC Q12@0700, 1900 [facility] Last Admin: 08/23/18 06:36 Dose: 7 units Lidocaine (Lidoderm) 1 ea TD DAILY [facility] Last Admin: 08/23/18 09:42 Dose: Not Given Lidocaine/Prilocaine (Lidocaine/Prilocaine 2.5%-2.5%) 1 applic TP ONCE PRN PRN Reason: Other Nystatin (Nystop Topical Powder) 1 applic TOP TID [facility] Last Admin: 08/23/18 09:44 Dose: 1 applic Ondansetron HCl (Zofran Inj) 4 mg IVP Q6 PRN PRN Reason: Nausea/Vomiting Last Admin: 08/23/18 10:44 Dose: 4 mg Phenazopyridine HCl (Pyridium) 100 mg PO TID [facility] Last Admin: 08/23/18 14:02 Dose: 100 mg Multivit/Folic Acid/Iron () 1 tab PO DAILY [facility] Last Admin: 08/23/18 09:43 Dose: 1 tab - Labs Labs: 08/21/18 05:40 08/21/18 05:40 PT 11.7 Seconds (9.8-13.1) 08/17/18 05:55 INR 1.1 08/17/18 05:55 APTT 28.2 Seconds (25.6-37.1) 08/17/18 05:55 - Additional Findings Additional findings: - Constitutional Appears: Non-toxic, No Acute Distress - Head Exam Head Exam: NORMAL INSPECTION - Eye Exam Eye Exam: Normal appearance - Neck Exam Neck Exam: Normal Inspection - Respiratory Exam Respiratory Exam: Clear to Ausculation Bilateral, NORMAL BREATHING PATTERN - Cardiovascular Exam Cardiovascular Exam: REGULAR RHYTHM, +S1, +S2. absent: Murmur - GI/Abdominal Exam GI & Abdominal Exam: Soft, Normal Bowel Sounds. absent: Tenderness - Extremities Exam Extremities Exam: Normal Inspection - Back Exam Back Exam: NORMAL INSPECTION - Neurological Exam Neurological Exam: Alert, Awake, Oriented x3 - Psychiatric Exam Psychiatric exam: Normal Affect, Normal Mood - Skin Skin Exam: Dry, Normal Color, Warm Assessment and Plan - Assessment and Plan (Free Text) Assessment: 33 y/o F with No PMHx, at 17 weeks of gestational age, admitted due to Left gluteus cellulitis s/p I&D. Currently receiving IV antibiotics until 08/24 as per ID. Cleared by Surgery. -Continue with IV antibiotics -d/c all opioid medications -start colace bid -Surgery: pt clear for discharge, can f/u with Dr. Holman at [place] [facility] -PT ordered, refused to participate
[2018-08-23] MEDS: Insulin Detemir 100 Units/ml Inj SC SCH (22:13)
[2018-08-24 06:25] LABS: BASO % 0.6 % (0.0-2.0); EOS % 0.6 % (0.0-4.0); LYMPH # 2.3 K/uL (1.0-4.3); LYMPH % 29.4 % (20.0-40.0); MEAN CELL VOLUME 89.6 fl (81.0-99.0); MEAN CORPUSCULAR HEMOGLOBIN 30.1 pg (27.0-31.0); MEAN CORPUSCULAR HGB CONC 33.5 g/dL (33.0-37.0); MEAN PLATELET VOLUME 9.5 fl (7.2-11.7); MONO # 0.6 K/uL (0.0-0.8); MONO % 7.5 % (0.0-10.0); NEUT # 4.8 K/uL (1.8-7.0); NEUT % 61.9 % (50.0-75.0); RBC 3.66 Mil/uL (3.80-5.20); RED CELL DISTRIBUTION WIDTH 14.8 % (11.5-14.5); WHITE BLOOD COUNT 7.7 K/uL (4.8-10.8)
[2018-08-24 06:30] LABS: ALT/SGPT 57 U/L (9-52); AST/SGOT 39 U/L (14-36); BLOOD UREA NITROGEN 8 mg/dl (7-17); GFR NON-AFRICAN AMERICAN > 60
[2018-08-24] MEDS: Insulin Lispro Mix 75/25 100 units/ml (HumaLog) 10ml SC SCH (08:53)
[2018-08-24] MEDS: Betamethasone Dip 0.05% Cream(15 gm) TOP SCH (08:53)
[2018-08-24] MEDS: Insulin Regular 100 units/ml SC SCH (08:54)
[2018-08-24] MEDS: Lidocaine 5% Patch TD SCH (08:54)
[2018-08-24] MEDS: Prenatal Multivit/Folic Acid/Iron Tab PO SCH (08:55)
[2018-08-24] MEDS: cefTRIAXone 2 GM in Sodium Chloride 0.9% 100 ML IVPB SCH (08:55)
--- NOTE | 2018-08-24 11:30 | CP.PCM.DIS ---
Provider - Provider Date of Admission: 07/28/18 17:28 Attending physician: Sterling Xie MD Consults: Infectious disease - Dr. Moreira Surgery - Dr. Lele Andrew - Dr. Grace Time Spent in preparation of Discharge (in minutes): 30 Diagnosis - Discharge Diagnosis (1) Cellulitis and abscess of buttock Status: Acute (2) Diabetes Status: Chronic Hospital Course - Lab Results Lab Results: Micro Results 08/14/18 18:00 Abscess - Buttocks Gram Stain - Final 08/14/18 18:00 Abscess - Buttocks Wound Culture - Final Enterococcus Faecalis 08/13/18 15:18 Urine,Clean Catch Urine Culture - Final No Growth (<1,000 CFU/ML) 08/02/18 14:06 Buttock Gram Stain - Final 08/02/18 14:06 Buttock Wound Culture - Final Corynebacterium Species 07/30/18 15:30 Buttock Gram Stain - Final 07/30/18 15:30 Buttock Wound Culture - Final Streptococcus Viridans 07/28/18 16:18 Blood Blood Culture - Final NO GROWTH AFTER 5 DAYS 07/28/18 16:18 Blood Gram Stain - Final TEST NOT PERFORMED 07/30/18 15:30 Buttock Gram Stain - Final 07/30/18 15:30 Buttock Wound Culture - Final No growth. 07/30/18 15:30 Buttock Gram Stain - Final 07/30/18 15:30 Buttock Wound Culture - Final Coagulase Neg Staphylococcus 07/29/18 06:45 Urine,Clean Catch Urine Culture - Final MULTIPLE SPECIES. SUGGEST REPEAT SPECIMEN. Most Recent Lab Values WBC 7.7 K/uL (4.8-10.8) 08/24/18 05:40 RBC 3.66 Mil/uL (3.80-5.20) L 08/24/18 05:40 Hgb 11.0 g/dL (12.0-16.0) L 08/24/18 05:40 Hct 32.8 % (34.0-47.0) L 08/24/18 05:40 MCV 89.6 fl (81.0-99.0) 08/24/18 05:40 MCH 30.1 pg (27.0-31.0) 08/24/18 05:40 MCHC 33.5 g/dL (33.0-37.0) 08/24/18 05:40 RDW 14.8 % (11.5-14.5) H 08/24/18 05:40 Plt Count 200 K/uL (130-400) 08/24/18 05:40 MPV 9.5 fl (7.2-11.7) 08/24/18 05:40 Neut % (Auto) 61.9 % (50.0-75.0) 08/24/18 05:40 Lymph % (Auto) 29.4 % (20.0-40.0) 08/24/18 05:40 [place] % (Auto) 7.5 % (0.0-10.0) 08/24/18 05:40 Eos % (Auto) 0.6 % (0.0-4.0) 08/24/18 05:40 Baso % (Auto) 0.6 % (0.0-2.0) 08/24/18 05:40 Neut # (Auto) 4.8 K/uL (1.8-7.0) 08/24/18 05:40 Lymph # (Auto) 2.3 K/uL (1.0-4.3) 08/24/18 05:40 [place] # (Auto) 0.6 K/uL (0.0-0.8) 08/24/18 05:40 Eos # (Auto) 0.0 K/uL (0.0-0.7) 08/24/18 05:40 Baso # (Auto) 0.0 K/uL (0.0-0.2) 08/24/18 05:40 Neutrophils % (Manual) 83 % (42-75) H 08/03/18 07:30 Band Neutrophils % 4 % (0-2) H 08/03/18 07:30 Lymphocytes % (Manual) 7 % (20-50) L 08/03/18 07:30 Monocytes % (Manual) 2 % (0-10) 08/03/18 07:30 Eosinophils % (Manual) 1 % (0-7) 07/28/18 16:15 Metamyelocytes % 1 % (0-0) H 08/03/18 07:30 Myelocytes % 2 % (0-0) H 08/03/18 07:30 Promyelocytes % 1 % (0-0) H 08/03/18 07:30 Toxic Granulation Present 08/03/18 07:30 Platelet Estimate Normal (NORMAL) 08/03/18 07:30 Plt Clumps, EDTA Present 08/03/18 07:30 Hypochromasia (manual) Slight 08/03/18 07:30 Anisocytosis (manual) Slight 07/30/18 09:56 ESR 90 mm/hr (0-20) H 07/29/18 05:30 PT 11.7 Seconds (9.8-13.1) 08/17/18 05:55 INR 1.1 08/17/18 05:55 APTT 28.2 Seconds (25.6-37.1) 08/17/18 05:55 pO2 26 mm/Hg (30-55) L 07/28/18 16:19 VBG pH 7.37 (7.32-7.43) 07/28/18 16:19 VBG pCO2 38 mmHg (40-60) L 07/28/18 16:19 VBG HCO3 21.3 mmol/L 07/28/18 16:19 VBG Total CO2 23.2 mmol/L (22-28) 07/28/18 16:19 VBG O2 Sat (Calc) 55.1 % (40-65) 07/28/18 16:19 VBG Base Excess -2.9 mmol/L (0.0-2.0) L 07/28/18 16:19 VBG Potassium 3.7 mmol/L (3.6-5.2) 07/28/18 16:19 Sodium 129.0 mmol/L (132-148) L 07/28/18 16:19 Chloride 98.0 mmol/L (98-107) 07/28/18 16:19 Glucose 211 mg/dL (65-105) H 07/28/18 16:19 Lactate 1.5 mmol/L (0.7-2.1) 07/28/18 16:19 FiO2 21.0 % 07/28/18 16:19 Sodium 136 mmol/l (132-148) 08/24/18 05:40 Potassium 3.8 MMOL/L (3.6-5.0) 08/24/18 05:40 Chloride 106 mmol/L (98-107) 08/24/18 05:40 Carbon Dioxide 27 mmol/L (22-30) 08/24/18 05:40 Anion Gap 7 (10-20) L 08/24/18 05:40 BUN 8 mg/dl (7-17) 08/24/18 05:40 Creatinine 0.6 mg/dl (0.7-1.2) L 08/24/18 05:40 Est GFR ( Amer) > 60 08/24/18 05:40 Est GFR (Non-Af Amer) > 60 08/24/18 05:40 POC Glucose (mg/dL) 104 mg/dL (65-110) 08/24/18 07:22 Random Glucose 97 mg/dL (65-105) 08/24/18 05:40 Hemoglobin A1c 7.3 % (4.2-6.5) H 07/29/18 05:30 Calcium 9.0 mg/dL (8.4-10.2) 08/24/18 05:40 Phosphorus 5.1 mg/dl (2.5-4.5) H 08/04/18 05:00 Magnesium 1.7 MG/DL (1.6-2.3) 08/04/18 05:00 Total Bilirubin 0.4 mg/dl (0.2-1.3) 08/24/18 05:40 AST 39 U/L (14-36) H 08/24/18 05:40 ALT 57 U/L (9-52) H 08/24/18 05:40 Alkaline Phosphatase 67 U/L (38-126) 08/24/18 05:40 Total Protein 6.1 G/DL (6.3-8.2) L 08/24/18 05:40 Albumin 3.0 g/dL (3.5-5.0) L 08/24/18 05:40 Globulin 3.1 gm/dL (2.2-3.9) 08/24/18 05:40 Albumin/Globulin Ratio 1.0 (1.0-2.1) 08/24/18 05:40 Lipase 20 U/L (23-300) L 07/28/18 16:15 TSH 3rd Generation 0.67 mIU/ML (0.46-4.68) 07/29/18 05:30 Beta HCG, Quant 10714.00 mIU/mL 07/28/18 16:15 Venous Blood Potassium 3.7 mmol/L (3.6-5.2) 07/28/18 16:19 Urine Color Yellow (YELLOW) 08/13/18 15:18 Urine Clarity Cloudy (Clear) 08/13/18 15:18 Urine pH 6.0 (5.0-8.0) 08/13/18 15:18 Ur Specific [place] 1.015 (1.003-1.030) 08/13/18 15:18 Urine Protein Negative mg/dL (NEGATIVE) 08/13/18 15:18 Urine Glucose (UA) Neg mg/dL (Normal) 08/13/18 15:18 Urine Ketones Negative mg/dL (NEGATIVE) 08/13/18 15:18 Urine Blood Negative (NEGATIVE) 08/13/18 15:18 Urine Nitrate Negative (NEGATIVE) 08/13/18 15:18 Urine Bilirubin Negative (NEGATIVE) 08/13/18 15:18 Urine Urobilinogen 0.2-1.0 mg/dL (0.2-1.0) 08/13/18 15:18 Ur Leukocyte Esterase Large [place]/uL (Negative) 08/13/18 15:18 Urine RBC (Auto) 1 /hpf (0-3) 08/13/18 15:18 Urine Microscopic WBC 91 /hpf (0-5) H 08/13/18 15:18 Ur Squamous Epith Cells 3 /hpf (0-5) 08/13/18 15:18 Urine Bacteria Rare (<OCC) 08/13/18 15:18 Hyaline Casts 3-5 /hpf (0-2) H 08/13/18 15:18 Vancomycin Trough 6.3 ug/mL (5.0-10.0) 08/21/18 17:41 C. difficile Ag & Toxin Negative (NEGATIVE) 08/20/18 05:45 Blood Type A POSITIVE 07/28/18 16:15 Antibody Screen Negative 07/28/18 16:15 BBK History Checked Patient has bt 07/28/18 16:15 - Hospital Course Hospital Course: 33 y/o female with no PMHx was admitted due to left gluteus cellulitis/ abscess s/p I&D. Patient admission was complicated by multiple I&D needed, infectious control, and pain control. Patient required elongated course of IV abx and wound care/pain control. Patient was cleared by surgery and ID and to be discharged on Augmentin 875 BID x 2 weeks. Patient can f/u with Dr. Holman at [place] [facility]. Patient discharged in stable condition. OB U/S prior to discharge with normal FHR and motion detected. Of note, patient was found to have diabetes mellitus during admision with Hgba1c: 7.5%. Started on insulin. Discharge Plan - Discharge Medications Prescriptions: Amoxicillin/Clavulanate [Augmentin 875 MG-125 MG] 1 tab PO BID #28 tab Insulin Detemir [Levemir] 15 units SC HS #1 vial Insulin Lispro Mix 75/25 [HumaLog MIX 75/25] 7 units SC Q12@0700,1900 #1 vial - Follow Up Plan Condition: STABLE Disposition: HOME/ ROUTINE Instructions: Diabetes Exchange Diet, Insulin Injection, Wound Care (DC), Cellulitis (Skin Infection), Adult (DC) Additional Instructions: follow up with primary MD and OB 1 week follow up on at [facility] for wound change and at home as needed. Referrals: Chas Grace DO [Staff Provider] - Jesse Fraga MD [Medical Doctor] - Alejandro Royal MD [Staff Provider] -
--- NOTE | 2018-08-24 11:58 | US ---
Date of service: 08/24/2018 PROCEDURE: Ob , limited study HISTORY: FHR and motion COMPARISON: Limited OB ultrasound performed 08/17/2018 FINDINGS: heart rate 153 beats per minute. motion is detected. IMPRESSION: heart rate 157 beats per minute with motion detected. Limited study.
--- NOTE | 2018-08-24 13:03 | CP.PCM.PCO ---
Physician Communication Note - Physician Communication Note Physician Communication Note: Per Dr. Fraga, pt to be d/c'd on Augment 875 BID x 2 weeks w/PMD f/u
[2018-08-24 14:29] VITALS: BP 118/70; PULSE 88; RESP 17; TEMP 98.1; O2SAT 95
== END 2018-08-24 14:43 | disposition home or self-care (01) | DRG 781 ==
LOC: H.ER 15:40 → H.ERHOLD 17:28 → H.MEDSURG1 23:10 → H.TEL 07-30 16:27 → H.MEDSURG1 08-05 18:10
PROVIDERS: ADMIT Family Medicine; ATTEND Family Medicine
PROC: 0J990ZZ Drainage of Buttock Subcutaneous Tissue and Fascia, Open Approach (ICD-10-PCS; 2018-07-30)
PROC: 0JB70ZZ Excision of Back Subcutaneous Tissue and Fascia, Open Approach (ICD-10-PCS; principal; 2018-08-02 12:15)
PROC: 0J993ZX Drainage of Buttock Subcutaneous Tissue and Fascia, Percutaneous Approach, Diagnostic (ICD-10-PCS; 2018-08-04)
PROC: 0JD70ZZ Extraction of Back Subcutaneous Tissue and Fascia, Open Approach (ICD-10-PCS; 2018-08-04)
PROC: 3E10X8Z Irrigation of Skin and Mucous Membranes using Irrigating Substance (ICD-10-PCS; 2018-08-17)
DX: O99.712 Diseases of the skin and subcutaneous tissue complicating pregnancy, second trimester (principal); L03.317 Cellulitis of buttock; L02.31 Cutaneous abscess of buttock; K61.1 Rectal abscess; O98.812 Other maternal infectious and parasitic diseases complicating pregnancy, second trimester; Z68.43 Body mass index [BMI] 50.0-59.9, adult; O23.22 Infections of urethra in pregnancy, second trimester; O24.912 Unspecified diabetes mellitus in pregnancy, second trimester; L73.2 Hidradenitis suppurativa; O99.89 Other specified diseases and conditions complicating pregnancy, childbirth and the puerperium; B37.3 Candidiasis of vulva and vagina; B95.4 Other streptococcus as the cause of diseases classified elsewhere; B95.2 Enterococcus as the cause of diseases classified elsewhere; B95.7 Other staphylococcus as the cause of diseases classified elsewhere; O99.212 Obesity complicating pregnancy, second trimester; E66.01 Morbid (severe) obesity due to excess calories; R50.82 Postprocedural fever; F06.30 Mood disorder due to known physiological condition, unspecified; K59.00 Constipation, unspecified; Z3A.17 17 weeks gestation of pregnancy; Z91.040 Latex allergy status; Z88.6 Allergy status to analgesic agent; Z87.891 Personal history of nicotine dependence; Z90.49 Acquired absence of other specified parts of digestive tract